=== PATIENT | female | born 1955 | race African-American/Black ===

== ENCOUNTER 2017-08-26 11:42 | Inpatient (IN) | payer MEDICARE, MEDICAID ==
[~2017-08-26] VITALS: Ht 180.3 cm; Wt 73.5 kg
[2017-08-26] MEDS ORDERED: BUPROPION XL300 M1 PO (14:33)
[2017-08-26 15:19] VITALS: BP 133/73
[2017-08-26] MEDS ORDERED: DiphenhydrAMINE 50mg/ml Inj IVP PRN (15:30)
[2017-08-26] MEDS ORDERED: ADVAIR 250-501 EACH PO (15:33)
--- NOTE | 2017-08-26 15:37 | Cardiology Report ---
APPROVED REPORT EXAM: Two-dimensional and M-mode echocardiogram with Doppler and color Doppler. INDICATION SOB M-Mode DIMENSIONS IVSd1.1 (0.7-1.1cm)Left Atrium (MM)3.7 (1.6-4.0cm) LVDd4.2 (3.5-5.6cm)Aortic Root2.6 (2.0-3.7cm) PWd1.1 (0.7-1.1cm)Aortic Cusp Exc.1.7 (1.5-2.0cm) LVDs1.8 (2.5-4.0cm) PWs1.4 cm Normal left ventricular chamber size, hyperdyamic systolic function with cavity obliteration, normal wall motion excpet for flatenning of vs suggestive of RV pressure overload Left ventricular ejection fraction estimated to be 70-75 %. Mod left ventricular hypertrophy. Small posterior pleural effusion. Left cardiac chamber sizes are within normal limits. Moderate right atrial enlargement by 2D. Mild right ventricular enlargement by 2D. Focal aortic valve sclerosis with adequate cusp excursion. Thickened mitral valve leaflets with normal excursion. Mild mitral annulus and aortic root calcification. Pulmonic valve is well visualized. Normal tricuspid valve structure. IVC dilated at 2.3cm non-collapsible with respiration indicate increased RA pressure. A color flow and spectral Doppler study was performed and revealed: Trace aortic regurgitation. Mild mitral regurgitation. Mitral diastolic velocities suggest reduced left ventricular relaxation c/w diastolic dysfunction grade 1. Mild tricuspid regurgitation. Tricuspid systolic velocities suggests peak right ventricular systolic pressure of at least 44-49 mmHg,( the velocity profile of TR jet was incomplete therfore the max / peak velocity may not have been measured) Consistent with pulmonary hypertension. Pulmonic regurgitation present.
[2017-08-26 15:45] LABS: HEMOGLOBIN 9.6 G/DL (12.0-16.0); MEAN CORPUSCULAR VOLUME 67 FL (80-99); PLATELET COUNT 522 K/UL (150-450); RED BLOOD COUNT 5.55 M/UL (4.20-5.40); RED CELL DISTRIBUTION WIDTH 20.7 % (11.6-14.8); WHITE BLOOD COUNT 4.9 K/UL (4.8-10.8)
[2017-08-26 15:53] LABS: ANION GAP 2 mmol/L (5-15); BLOOD UREA NITROGEN 11 mg/dL (7-18); CALCIUM 8.7 MG/DL (8.5-10.1); CARBON DIOXIDE 39 MMOL/L (21-32); CHLORIDE 106 MMOL/L (98-107); CREATININE 0.5 MG/DL (0.55-1.30); POTASSIUM 3.7 MMOL/L (3.5-5.1); SODIUM 147 MMOL/L (136-145)
--- NOTE | 2017-08-26 17:28 | Consultation ---
History of Present Illness General Date patient seen: Aug 26, 2017 Time patient seen: 17:48 Chief Complaint: FTT, LE edema, alcohol Present Illness HPI Patient sent from clinic, shes 62 year old female with alcohol abuse, Right heart failure, anemia, , bipolar. She is not compliant witg medications, she has been drinking more lately, does not follow up with doctors. Her echo has normal LV function, mild PAH. She has acute hypoxemia and dyspnea, COPD, sleep apnea, diastolic dysfunction and elevated filling pressures. She was admitted for failure to thrive. Allergies: Coded Allergies: CODEINE (Verified Allergy, Intermediate, Itchy, 08/26/17) Medication History Scheduled Bupropion HCl (Bupropion Xl), 300 MG PO DAILY, (Reported) Fluticasone/Salmeterol (Advair 250-50 Diskus), 1 PUFF PO BID, (Reported) Patient History Healthcare decision maker N Resuscitation status Full Code Advanced Directive on File Review of Systems Constitutional: Reports: weakness ENT: Reports: no symptoms Respiratory: Reports: cough, orthopnea, shortness of breath, stridor, wheezing , HORTA Cardiovascular: Reports: edema, palpitations Gastrointestinal: Reports: nausea Genitourinary: Reports: no symptoms Musculoskeletal: Reports: no symptoms Skin: Reports: no symptoms Psychiatric: Reports: anxiety Neurological: Reports: no symptoms Physical Exam General Appearance: no apparent distress Lines, tubes and drains: peripheral HEENT: normocephalic Neck: non-tender Respiratory/Chest: chest wall non-tender, expiratory wheezing Breasts: no masses Cardiovascular/Chest: normal peripheral pulses Abdomen: normal bowel sounds Extremities: normal range of motion 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 grossly normal Last 24 Hour Vital Signs Date Time Temp Pulse Resp B/P (MAP) Pulse Ox O2 Delivery O2 Flow Rate FiO2 08/26/17 15:19 98.1 99 18 133/73 98 Room Air 98.1 Laboratory Tests Test 08/26/17 15:00 08/26/17 15:45 White Blood Count 4.9 K/UL (4.8-10.8) Red Blood Count 5.55 M/UL (4.20-5.40) H Hemoglobin 9.6 G/DL (12.0-16.0) L Hematocrit 37.0 % (37.0-47.0) Mean Corpuscular Volume 67 FL (80-99) L Mean Corpuscular Hemoglobin 17.3 PG (27.0-31.0) L Mean Corpuscular Hemoglobin Concent 25.9 G/DL (32.0-36.0) L Red Cell Distribution Width 20.7 % (11.6-14.8) H Platelet Count 522 K/UL (150-450) H Mean Platelet Volume 5.1 FL (6.5-10.1) L Neutrophils (%) (Auto) % (45.0-75.0) Lymphocytes (%) (Auto) % (20.0-45.0) Monocytes (%) (Auto) % (1.0-10.0) Eosinophils (%) (Auto) % (0.0-3.0) Basophils (%) (Auto) % (0.0-2.0) Differential Total Cells Counted 100 Neutrophils % (Manual) 55 % (45-75) Lymphocytes % (Manual) 35 % (20-45) Monocytes % (Manual) 7 % (1-10) Eosinophils % (Manual) 0 % (0-3) Basophils % (Manual) 1 % (0-2) Band Neutrophils 2 % (0-8) Platelet Estimate Increased H Platelet Morphology Normal Hypochromasia 1+ Anisocytosis 1+ Sodium Level 147 MMOL/L (136-145) H Potassium Level 3.7 MMOL/L (3.5-5.1) Chloride Level 106 MMOL/L (98-107) Carbon Dioxide Level 39 MMOL/L (21-32) H Anion Gap 2 mmol/L (5-15) L Blood Urea Nitrogen 11 mg/dL (7-18) Creatinine 0.5 MG/DL (0.55-1.30) L Estimat Glomerular Filtration Rate > 60 mL/min (>60) Glucose Level 76 MG/DL (74-106) Hemoglobin A1c 6.5 % (4.3-6.0) H Calcium Level 8.7 MG/DL (8.5-10.1) Troponin I 0.010 ng/mL (0.000-0.056) Arterial Blood pH 7.382 (7.350-7.450) Arterial Blood Partial Pressure CO2 60.8 mmHg (35.0-45.0) *H Arterial Blood Partial Pressure O2 43.5 mmHg (75.0-100.0) Arterial Blood HCO3 35.3 mmol/L (22.0-26.0) H Arterial Blood Oxygen Saturation 73.8 % (92.0-98.0) L Arterial Blood Base Excess 8.7 Narciso Test Positive Height (Feet): 5 Height (Inches): 11.00 Weight (Pounds): 175 Medications Current Medications Medications (Trade) Dose Ordered Sig/Natividad Route PRN Reason Start Time Stop Time Status Last Admin Dose Admin Acetaminophen (Tylenol) 650 mg Q4H PRN ORAL Mild Pain/Temp > 100.5 08/26/17 15:30 09/25/17 15:29 Diphenhydramine HCl (Benadryl) 25 mg Q6H PRN IVP Itching 08/26/17 15:30 09/25/17 15:29 Furosemide (Lasix) 20 mg Q24H IV 08/27/17 18:00 09/26/17 17:59 Heparin Sodium (Porcine) (Heparin 5000 units/ml) 5,000 units EVERY 12 HOURS SUBQ 08/26/17 21:00 09/25/17 20:59 Ondansetron HCl (Zofran) 4 mg Q6H PRN IVP Nausea & Vomiting 08/26/17 15:30 09/25/17 15:29 Trazodone HCl (Desyrel) 300 mg BEDTIME ORAL 08/26/17 21:00 09/25/17 20:59 Assessment/Plan Assessment/Plan Hypoxemia/Dyspnea COPD Sleep Apnea Mixed pulmonary hypertension Diastolic dysfunction Bipolar disease Iron deficiency anemia Extensive alcohol and smoking use -Psych consult -pulmonary toilet -BiPAP prn -Steroids, inhaler, pulmonary toilet -No indication for RHC, PAH is multifactorial Group II/III -No indication for stress testing at this time -Echo reviewed, no significant changes to prior in June -Presentation not consistent with PE, prior work up negative -Mild IV hydration for RV function depression, avoid vasodilators/nitro if possible -Continue diuresis with metolazone and lasix Robbin Diop M.D. Aug 26, 2017 17:28
[2017-08-26 20:40] VITALS: BP 111/61
[2017-08-26] MEDS: TraZODone 100mg tab ORAL SCH (21:00)
[2017-08-26] MEDS: Heparin 5000 units/ml inj SUBQ SCH (21:35)
[2017-08-27] VITALS: BP 108/91
[2017-08-27 04:00] VITALS: BP 120/72
[2017-08-27 04:47] LABS: ANION GAP 0 mmol/L (5-15); BLOOD UREA NITROGEN 9 mg/dL (7-18); CALCIUM 8.4 MG/DL (8.5-10.1); CARBON DIOXIDE 39 MMOL/L (21-32); CHLORIDE 108 MMOL/L (98-107); CREATININE 0.6 MG/DL (0.55-1.30); POTASSIUM 3.6 MMOL/L (3.5-5.1); SODIUM 147 MMOL/L (136-145)
[2017-08-27 04:54] LABS: HEMATOCRIT 35.5 % (37.0-47.0); HEMOGLOBIN 9.1 G/DL (12.0-16.0); MEAN CORPUSCULAR VOLUME 67 FL (80-99); PLATELET COUNT 500 K/UL (150-450); WHITE BLOOD COUNT 5.1 K/UL (4.8-10.8)
[2017-08-27 05:12] LABS: CHOLESTEROL 116 MG/DL (< 200); HDL CHOLESTEROL 53 MG/DL (40-60); TRIGLYCERIDES 32 MG/DL (30-150)
[2017-08-27 08:00] VITALS: BP 94/47
--- NOTE | 2017-08-27 08:43 | Diagnostic Imaging Report ---
Indications: Altered mental status Technique: Spiral acquisitions obtained through the brain. Angled axial and coronal 5 x 5 mm slices were reconstructed. Total dose length product 1425.35 mGycm. CTDI vol(s) 70.38 mGy. Dose reduction achieved using automated exposure control Comparison: None. Findings: There is mild age-related enlargement of the ventricles and extra axial CSF spaces. Normal narayan-white differentiation. Intact calvarium. Visualized orbits and sinuses are unremarkable. Impression: Mild age-related volume loss Negative for acute intracranial bleed or mass effect This agrees with the preliminary interpretation provided overnight by [facility] teleradiology service. The CT scanner at [facility] is accredited by the [employer] and the scans are performed using protocols designed to limit radiation exposure to as low as reasonably achievable to attain images of sufficient resolution adequate for diagnostic evaluation.
[2017-08-27] MEDS: Heparin 5000 units/ml inj SUBQ SCH ×2 (09:09→21:39)
[2017-08-27 10:37] LABS: APPEARANCE,URINE SLIGHTLY CLOUDY; BILIRUBIN, URINE 1+ (NEGATIVE); COLOR,URINE BROWN; GLUCOSE, URINE (UA) NEGATIVE (NEGATIVE); KETONES,URINE NEGATIVE (NEGATIVE); LEUKOCYTE ESTERASE ,URINE NEGATIVE (NEGATIVE); NITRITE,URINE POSITIVE (NEGATIVE); PH,URINE 5 (4.5-8.0); PROTEIN,URINE 2+ (NEGATIVE); UROBILINOGEN,URINE 8 MG/DL (0.0-1.0)
[2017-08-27] MEDS ORDERED: Albuterol/Ipratropium 3ml neb HHN PRN (11:00)
--- NOTE | 2017-08-27 11:12 | Consultation ---
Consult Note Assessment/Plan [facility] DICT # [id number] Guevara Ayon MD Aug 27, 2017 11:12
[2017-08-27 12:00] VITALS: BP 111/63
[2017-08-27] MEDS: Cephalexin 500mg cap ORAL SCH ×3 (12:58→21:00)
[2017-08-27] MEDS: Albuterol/Ipratropium 3ml neb HHN SCH ×2 (13:44→18:51)
--- NOTE | 2017-08-27 15:15 | History and Physical ---
History of Present Illness General Date patient seen: Aug 27, 2017 Time patient seen: 15:14 Present Illness HPI Patient is a 62 y/o female with a PMH of alcohol abuse, right heart failure/ diastolic CHF, anemia, bipolar d/o, COPD, and OPAL that was sent from clinic for concern for decompensated heart failure with bilateral lower extremity edema. Patient has been drinking more lately and is non-compliant with her medications. Her ECHO showed normal LV function with mild PAH. Initial troponin was negative. CXR does show mild bilateral pleural effusions and picture c/w CHF. Patient at this time denies sob, chest pain, n/v, abdominal pain, d/c. She does admit to drinking 2-3 drinks within the last several days. Denies tobacco abuse or other illicit drug use. Allergies: Coded Allergies: CODEINE (Verified Allergy, Intermediate, Itchy, 08/26/17) Medication History Scheduled Bupropion HCl (Bupropion Xl), 300 MG PO DAILY, (Reported) Fluticasone/Salmeterol (Advair 250-50 Diskus), 1 PUFF PO BID, (Reported) Patient History Healthcare decision maker N Resuscitation status Full Code Advanced Directive on File Review of Systems All Other Systems: negative except mentioned in HPI Physical Exam General Appearance: no apparent distress, alert, thin HEENT: normocephalic, atraumatic Neck: non-tender, normal alignment, supple Respiratory/Chest: chest wall non-tender, lungs clear, normal breath sounds Cardiovascular/Chest: normal peripheral pulses, normal rate, regular rhythm Abdomen: normal bowel sounds, non tender, soft Extremities: moderate edema Skin Exam: normal pigmentation, warm/dry 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 II-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 grossly normal, no motor/sensory deficits, alert, oriented x 3 Last 24 Hour Vital Signs Date Time Temp Pulse Resp B/P (MAP) Pulse Ox O2 Delivery O2 Flow Rate FiO2 08/27/17 13:47 103 20 93 Nasal Cannula 3.0 32 08/27/17 13:38 101 20 94 Nasal Cannula 3.0 32 08/27/17 13:34 106 24 Nasal Cannula 3.0 32 08/27/17 12:00 106 08/27/17 12:00 98.3 106 22 111/63 95 Nasal Cannula 2.0 98.3 08/27/17 08:00 98.2 101 22 94/47 92 Nasal Cannula 2.0 98.2 08/27/17 08:00 105 08/27/17 07:59 92 Nasal Cannula 2.0 28 08/27/17 07:59 Nasal Cannula 2.0 28 08/27/17 05:14 90 16 94 32 08/27/17 04:00 97.5 96 18 120/72 97 Nasal Cannula 3.0 97.5 08/27/17 04:00 96 08/27/17 01:30 96 20 95 Facial 40 08/27/17 00:00 94 08/27/17 00:00 98.6 104 17 108/91 97 Bi-pap 40 98.6 08/27/17 00:00 40 08/26/17 23:30 98 19 93 Facial 40 08/26/17 20:54 111 21 95 Facial 40 08/26/17 20:40 40 08/26/17 20:40 97.4 105 16 111/61 93 Bi-pap 40 97.4 08/26/17 20:00 106 08/26/17 19:36 Nasal Cannula 2.0 28 08/26/17 19:35 98 Nasal Cannula 2.0 28 08/26/17 19:33 111 21 Bi-pap 40 08/26/17 16:00 107 08/26/17 15:19 98.1 99 18 133/73 98 Room Air 98.1 Intake and Output 08/26/17 08/27/17 19:00 07:00 Intake Total 120 ml 50 ml Output Total 0 ml Balance 120 ml 50 ml Intake Oral 120 ml 50 ml Output Urine Total 0 ml Laboratory Tests Test 08/26/17 15:45 08/27/17 04:05 08/27/17 09:00 Arterial Blood pH 7.382 (7.350-7.450) Arterial Blood Partial Pressure CO2 60.8 mmHg (35.0-45.0) *H Arterial Blood Partial Pressure O2 43.5 mmHg (75.0-100.0) Arterial Blood HCO3 35.3 mmol/L (22.0-26.0) H Arterial Blood Oxygen Saturation 73.8 % (92.0-98.0) L Arterial Blood Base Excess 8.7 Narciso Test Positive White Blood Count 5.1 K/UL (4.8-10.8) Red Blood Count 5.30 M/UL (4.20-5.40) Hemoglobin 9.1 G/DL (12.0-16.0) L Hematocrit 35.5 % (37.0-47.0) L Mean Corpuscular Volume 67 FL (80-99) L Mean Corpuscular Hemoglobin 17.2 PG (27.0-31.0) L Mean Corpuscular Hemoglobin Concent 25.7 G/DL (32.0-36.0) L Red Cell Distribution Width 21.0 % (11.6-14.8) H Platelet Count 500 K/UL (150-450) H Mean Platelet Volume 5.4 FL (6.5-10.1) L Neutrophils (%) (Auto) % (45.0-75.0) Lymphocytes (%) (Auto) % (20.0-45.0) Monocytes (%) (Auto) % (1.0-10.0) Eosinophils (%) (Auto) % (0.0-3.0) Basophils (%) (Auto) % (0.0-2.0) Differential Total Cells Counted 100 Neutrophils % (Manual) 58 % (45-75) Lymphocytes % (Manual) 23 % (20-45) Monocytes % (Manual) 19 % (1-10) H Eosinophils % (Manual) 0 % (0-3) Basophils % (Manual) 0 % (0-2) Band Neutrophils 0 % (0-8) Nucleated Red Blood Cells 1 /100 WBC Platelet Estimate Adequate Platelet Morphology Normal Hypochromasia 2+ Anisocytosis 3+ Microcytosis 4+ Sodium Level 147 MMOL/L (136-145) H Potassium Level 3.6 MMOL/L (3.5-5.1) Chloride Level 108 MMOL/L (98-107) H Carbon Dioxide Level 39 MMOL/L (21-32) H Anion Gap 0 mmol/L (5-15) L Blood Urea Nitrogen 9 mg/dL (7-18) Creatinine 0.6 MG/DL (0.55-1.30) Estimat Glomerular Filtration Rate > 60 mL/min (>60) Glucose Level 108 MG/DL (74-106) H Calcium Level 8.4 MG/DL (8.5-10.1) L Triglycerides Level 32 MG/DL (30-150) Cholesterol Level 116 MG/DL (< 200) LDL Cholesterol 66 mg/dL (<100) HDL Cholesterol 53 MG/DL (40-60) Cholesterol/HDL Ratio 2.2 (3.3-4.4) L Thyroid Stimulating Hormone (TSH) 1.187 uiU/mL (0.358-3.740) Urine Color Brown Urine Appearance Slightly cloudy Urine pH 5 (4.5-8.0) Urine Specific [place] 1.025 (1.005-1.035) Urine Protein 2+ (NEGATIVE) H Urine Glucose (UA) Negative (NEGATIVE) Urine Ketones Negative (NEGATIVE) Urine Occult Blood Negative (NEGATIVE) Urine Nitrite Positive (NEGATIVE) H Urine Bilirubin 1+ (NEGATIVE) H Urine Ictotest Negative Urine Urobilinogen 8 MG/DL (0.0-1.0) H Urine Leukocyte Esterase Negative (NEGATIVE) Urine RBC 2-4 /HPF (0 - 2) H Urine WBC 0-2 /HPF (0 - 2) Urine Squamous Epithelial Cells Few /LPF (NONE/OCC) Urine Bacteria Many /HPF (NONE) H Urine Opiates Screen Negative (NEGATIVE) Urine Barbiturates Screen Negative (NEGATIVE) Phencyclidine (PCP) Screen Negative (NEGATIVE) Urine Amphetamines Screen Negative (NEGATIVE) Urine Benzodiazepines Screen Negative (NEGATIVE) Urine Cocaine Screen Negative (NEGATIVE) Urine Marijuana (THC) Screen Negative (NEGATIVE) Height (Feet): 5 Height (Inches): 11.00 Weight (Pounds): 167 Medications Current Medications Medications (Trade) Dose Ordered Sig/Natividad Route PRN Reason Start Time Stop Time Status Last Admin Dose Admin Acetaminophen (Tylenol) 650 mg Q4H PRN ORAL Mild Pain/Temp > 100.5 08/26/17 15:30 09/25/17 15:29 Albuterol/ Ipratropium (Albuterol/ Ipratropium) 3 ml Q4H PRN HHN Shortness of Breath 08/27/17 11:00 09/01/17 10:59 Albuterol/ Ipratropium (Albuterol/ Ipratropium) 3 ml Q6HRT HHN 08/27/17 13:00 09/01/17 12:59 08/27/17 13:44 Cephalexin (Keflex) 500 mg FOUR TIMES A DAY ORAL 08/27/17 13:00 09/03/17 12:59 08/27/17 12:58 Diphenhydramine HCl (Benadryl) 25 mg Q6H PRN IVP Itching 08/26/17 15:30 09/25/17 15:29 Folic Acid (Folate) 1 mg DAILY ORAL 08/28/17 09:00 09/27/17 08:59 Heparin Sodium (Porcine) (Heparin 5000 units/ml) 5,000 units EVERY 12 HOURS SUBQ 08/26/17 21:00 09/25/17 20:59 08/27/17 09:09 Multivitamins (Multivitamins) 1 tab DAILY ORAL 08/28/17 09:00 09/27/17 08:59 Ondansetron HCl (Zofran) 4 mg Q6H PRN IVP Nausea & Vomiting 08/26/17 15:30 09/25/17 15:29 Salmeterol Xinafoate/ Fluticasone (Advair 250/50 Diskus) 1 puffs BID INH 08/27/17 18:00 09/26/17 17:59 Thiamine HCl (Vitamin B1) 100 mg DAILY ORAL 08/28/17 09:00 09/27/17 08:59 Tiotropium [place] (Spiriva Inhaler) 1 puff DAILY INH 08/28/17 09:00 09/27/17 08:59 Trazodone HCl (Desyrel) 300 mg BEDTIME ORAL 08/26/17 21:00 09/25/17 20:59 Assessment/Plan Problem List: (1) Acute on chronic diastolic CHF (congestive heart failure) ICD Codes: I50.33 - Acute on chronic diastolic (congestive) heart failure SNOMED: 76244604, 875529120 (2) COPD (chronic obstructive pulmonary disease) ICD Codes: J44.9 - Chronic obstructive pulmonary disease, unspecified SNOMED: 62496166 (3) H/O tobacco use, presenting hazards to health ICD Codes: Z87.891 - Personal history of nicotine dependence SNOMED: 5421345415710 (4) Anemia ICD Codes: D64.9 - Anemia, unspecified SNOMED: 122525090 (5) Alcohol abuse ICD Codes: F10.10 - Alcohol abuse, uncomplicated SNOMED: 07239886 (6) Noncompliance ICD Codes: Z91.19 - Patient's noncompliance with other medical treatment and regimen SNOMED: 5815834 (7) Bipolar disorder ICD Codes: F31.9 - Bipolar disorder, unspecified SNOMED: 30269308 (8) Acute respiratory failure with hypoxia ICD Codes: J96.01 - Acute respiratory failure with hypoxia SNOMED: 77192048, 066213418 (9) Failure to thrive SNOMED: 55883501 (10) Altered mental state ICD Codes: R41.82 - Altered mental status, unspecified SNOMED: 016987284 (11) FTT (failure to thrive) in adult ICD Codes: R62.7 - Adult failure to thrive SNOMED: 846956582 Status: stable, progressing Assessment/Plan - Admit to inpatient - Cardiology, nephrology, neurology, pulmonology, psychiatry consulted - CT head negative for acute pathology. Check RPR, vitamin B12, folate, TSH, UA to r/o metabolic etiology for AMS. Now improved. - ECHO with 60% EF with diastolic dysfunction noted and mild PAH - CXR with small bilateral pleural effusion - EKG/trend trop - BNP 722 - lasix 20mg IV qd - monitor I&O - no indication for RHC at this time - UA with positive nitrites. F/u urine cx. Continue keflex for now - pulmonary toilet. titrate FiO2 down for O2 sats to be greater than 90% - duonebs ATC and prn - Advair and spiriva - multivitamin, folate, thiamine daily - check prealbumin/albumin - nutrition consult - encourage compliance and alcohol cessation DVT Prophylaxis: SCD, HSQ Code Status: Full Hospital Classification Declaration: Based on this initial evaluation, and depending on the patient's clinical course, I anticipate that this patient will require hospitalization for 2-3 days for acute on chronic CHF exacerbation and close respiratory/hemodynamic monitoring. Disposition: Once the patient is stable to leave the hospital, I anticipate the patient will likely be discharged to the following environment: home with HH vs SNF I spent 72 minutes on this patient's case, and 40 minutes were dedicated to counseling and/or care coordination. Discussed with patient/family, nursing staff, SW/CM, pulmonology, cardiology, neurology regarding clinical status, treatment course, and disposition planning. Time of note may not reflect time of encounter. Mary Hong NP Aug 27, 2017 15:15
[2017-08-27] MEDS ORDERED: LORazepam 1mg tab ORAL PRN (16:00)
--- NOTE | 2017-08-27 16:50 | Diagnostic Imaging Report ---
Indication: Shortness of breath Technique: One view of the chest Comparison: none Findings: There are bilateral pleural effusions. There is bilateral basilar atelectasis. The heart is mildly enlarged. There is mild interstitial congestion. Impression: Evidence of mild congestive heart failure, with interstitial congestion and small bilateral pleural effusions Borderline cardiomegaly Bilateral basilar atelectatic changes
--- NOTE | 2017-08-27 17:21 | Cardiology Progress Note ---
Assessment/Plan Status: stable Assessment/Plan Hypoxemia/Dyspnea COPD Sleep Apnea Mixed pulmonary hypertension Diastolic dysfunction Bipolar disease Iron deficiency anemia Extensive alcohol and smoking use -Psych consulted -pulmonary toilet -BiPAP prn -Steroids, inhaler, pulmonary toilet -No indication for RHC, PAH is multifactorial Group II/III -No indication for stress testing at this time -Echo reviewed, no significant changes to prior in June -Presentation not consistent with PE, prior work up negative -Mild IV hydration for RV function depression, avoid vasodilators/nitro if possible, no indication for dobutamine - BP stable -Continue diuresis with metolazone and lasix -thoracentesis evaluation for right sided effusion Subjective Cardiovascular: Reports: no symptoms Respiratory: Reports: no symptoms Gastrointestinal/Abdominal: Reports: no symptoms Genitourinary: Reports: no symptoms Subjective No acute events, mild tachycardia, vitals otherwise stable. on 2-3 liters oxygen , CXR with right effusion. Objective Last 24 Hour Vital Signs Date Time Temp Pulse Resp B/P (MAP) Pulse Ox O2 Delivery O2 Flow Rate FiO2 08/27/17 13:47 103 20 93 Nasal Cannula 3.0 32 08/27/17 13:38 101 20 94 Nasal Cannula 3.0 32 08/27/17 13:34 106 24 Nasal Cannula 3.0 32 08/27/17 12:00 106 08/27/17 12:00 98.3 106 22 111/63 95 Nasal Cannula 2.0 98.3 08/27/17 08:00 98.2 101 22 94/47 92 Nasal Cannula 2.0 98.2 08/27/17 08:00 105 08/27/17 07:59 92 Nasal Cannula 2.0 28 08/27/17 07:59 Nasal Cannula 2.0 28 08/27/17 05:14 90 16 94 32 08/27/17 04:00 97.5 96 18 120/72 97 Nasal Cannula 3.0 97.5 08/27/17 04:00 96 08/27/17 01:30 96 20 95 Facial 40 08/27/17 00:00 94 08/27/17 00:00 98.6 104 17 108/91 97 Bi-pap 40 98.6 08/27/17 00:00 40 08/26/17 23:30 98 19 93 Facial 40 08/26/17 20:54 111 21 95 Facial 40 08/26/17 20:40 40 08/26/17 20:40 97.4 105 16 111/61 93 Bi-pap 40 97.4 08/26/17 20:00 106 08/26/17 19:36 Nasal Cannula 2.0 28 08/26/17 19:35 98 Nasal Cannula 2.0 28 08/26/17 19:33 111 21 Bi-pap 40 General Appearance: no apparent distress EENT: PERRL/EOMI Neck: non-tender Rhythm: ST Cardiovascular: normal peripheral pulses Respiratory/Chest: decreased breath sounds, rhonchi - right Abdomen: normal bowel sounds Extremities: normal range of motion 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 grossly normal Intake and Output 08/26/17 08/27/17 19:00 07:00 Intake Total 120 ml 50 ml Output Total 0 ml Balance 120 ml 50 ml Intake Oral 120 ml 50 ml Output Urine Total 0 ml Laboratory Tests Test 08/27/17 04:05 08/27/17 09:00 White Blood Count 5.1 K/UL (4.8-10.8) Red Blood Count 5.30 M/UL (4.20-5.40) Hemoglobin 9.1 G/DL (12.0-16.0) L Hematocrit 35.5 % (37.0-47.0) L Mean Corpuscular Volume 67 FL (80-99) L Mean Corpuscular Hemoglobin 17.2 PG (27.0-31.0) L Mean Corpuscular Hemoglobin Concent 25.7 G/DL (32.0-36.0) L Red Cell Distribution Width 21.0 % (11.6-14.8) H Platelet Count 500 K/UL (150-450) H Mean Platelet Volume 5.4 FL (6.5-10.1) L Neutrophils (%) (Auto) % (45.0-75.0) Lymphocytes (%) (Auto) % (20.0-45.0) Monocytes (%) (Auto) % (1.0-10.0) Eosinophils (%) (Auto) % (0.0-3.0) Basophils (%) (Auto) % (0.0-2.0) Differential Total Cells Counted 100 Neutrophils % (Manual) 58 % (45-75) Lymphocytes % (Manual) 23 % (20-45) Monocytes % (Manual) 19 % (1-10) H Eosinophils % (Manual) 0 % (0-3) Basophils % (Manual) 0 % (0-2) Band Neutrophils 0 % (0-8) Nucleated Red Blood Cells 1 /100 WBC Platelet Estimate Adequate Platelet Morphology Normal Hypochromasia 2+ Anisocytosis 3+ Microcytosis 4+ Sodium Level 147 MMOL/L (136-145) H Potassium Level 3.6 MMOL/L (3.5-5.1) Chloride Level 108 MMOL/L (98-107) H Carbon Dioxide Level 39 MMOL/L (21-32) H Anion Gap 0 mmol/L (5-15) L Blood Urea Nitrogen 9 mg/dL (7-18) Creatinine 0.6 MG/DL (0.55-1.30) Estimat Glomerular Filtration Rate > 60 mL/min (>60) Glucose Level 108 MG/DL (74-106) H Calcium Level 8.4 MG/DL (8.5-10.1) L Triglycerides Level 32 MG/DL (30-150) Cholesterol Level 116 MG/DL (< 200) LDL Cholesterol 66 mg/dL (<100) HDL Cholesterol 53 MG/DL (40-60) Cholesterol/HDL Ratio 2.2 (3.3-4.4) L Thyroid Stimulating Hormone (TSH) 1.187 uiU/mL (0.358-3.740) Urine Color Brown Urine Appearance Slightly cloudy Urine pH 5 (4.5-8.0) Urine Specific [place] 1.025 (1.005-1.035) Urine Protein 2+ (NEGATIVE) H Urine Glucose (UA) Negative (NEGATIVE) Urine Ketones Negative (NEGATIVE) Urine Occult Blood Negative (NEGATIVE) Urine Nitrite Positive (NEGATIVE) H Urine Bilirubin 1+ (NEGATIVE) H Urine Ictotest Negative Urine Urobilinogen 8 MG/DL (0.0-1.0) H Urine Leukocyte Esterase Negative (NEGATIVE) Urine RBC 2-4 /HPF (0 - 2) H Urine WBC 0-2 /HPF (0 - 2) Urine Squamous Epithelial Cells Few /LPF (NONE/OCC) Urine Bacteria Many /HPF (NONE) H Urine Opiates Screen Negative (NEGATIVE) Urine Barbiturates Screen Negative (NEGATIVE) Phencyclidine (PCP) Screen Negative (NEGATIVE) Urine Amphetamines Screen Negative (NEGATIVE) Urine Benzodiazepines Screen Negative (NEGATIVE) Urine Cocaine Screen Negative (NEGATIVE) Urine Marijuana (THC) Screen Negative (NEGATIVE) Robbin Diop M.D. Aug 27, 2017 17:21
--- NOTE | 2017-08-27 17:25 | Consultation ---
Consult Note Consult Note asked to eval for edema Assessment/Plan Low MCV Anemia Failure to Thrive h/o ETOH abuse Pulmonary HTN Mild Hypernatremia HypoAlbuminemia Proteinuria Tachycardia h/o Smoking Anemia spaulding 24 h urine protein gastric support further comments after above results COURTNEY BARBOZA Aug 27, 2017 17:25
[2017-08-27] MEDS: Advair 250/50 Inhaler - 14 dose INH SCH (18:00)
[2017-08-27 20:00] VITALS: BP 135/77
--- NOTE | 2017-08-27 20:21 | Consultation ---
Consult Note Consult Note NEUROLOGY CONSULTATION: Full note dictated #[id number] 62 y/o, BF of ?H who was admitted to the hospital on 08/26/17 for FTT. At this time she cannot be aroused. She was apparently given Ativan earlier for agitation and was brighter as per her nurse. ON EXAM: Unable to arouse even on DP. No definite lateralizing findings. IMPRESSION: Possible drug induced encephalopathy. Unable to get valuable neurologic data due to above. REC: W/U for AMS Careful with mind altering drugs. Will re-evaluate tomorrow. Samuel Tracy M.D., M.S.P.H. SAMUEL TRACY Aug 27, 2017 20:21
[2017-08-27] MEDS: TraZODone 100mg tab ORAL SCH (21:00)
[2017-08-27] MEDS ORDERED: Haloperidol 5mg/ml Inj IM PRN (21:45)
--- NOTE | 2017-08-27 21:45 | Consultation ---
DATE OF CONSULTATION: 08/27/2017 PULMONARY CONSULTATION CONSULTING PHYSICIAN: Guevara Ayon M.D. REFERRING PHYSICIAN: Pauline Saldana M.D. REASON FOR CONSULTATION: Hypoxemia. HISTORY OF PRESENT ILLNESS: The patient is a 62-year-old female. I am her outpatient primary care provider. Yesterday, I saw the patient in my office and referred her directly to [facility] for failure to thrive and concern for decompensated heart failure. She has a history of chronic hypercapnic respiratory failure, COPD, OPAL, not on therapy, mild pulmonary hypertension, extensive former tobacco use, CHF with diastolic dysfunction, bipolar disorder, anxiety disorder, depression, iron-deficiency anemia, and alcoholism. The patient presented for followup to my office yesterday. She had been drinking more, had increased lower extremity edema, shortness of breath, and decrease in energy. She was unsure of what medications she is taking. She sees Dr. Enriqueta Romo, psychiatrist, who treats her bipolar disorder. In my office, she was hypoxemic on room air and mildly edematous. I referred her for further evaluation and treatment. Since she came to the hospital, she has been afebrile. Her heart rate has been in the high 90s to low 100s, respiratory rate has been stable, and she has been saturating well on 2 to 3 liters of oxygen. Her labs, ABG was 7.38/60/43/35/73 and her laboratories are otherwise unremarkable. Her U-tox was negative. She does have positive nitrites and concern for a possible UTI. PAST MEDICAL HISTORY: 1. Alcoholism. 2. Bipolar disorder. 3. Iron-deficiency anemia. 4. Chronic respiratory failure. 5. COPD. 6. Tobacco use. PAST SURGICAL HISTORY: Removal of an ovarian cyst. PRIOR TO ADMISSION MEDICATIONS: Ventolin, BuSpar, Cymbalta, iron sulfate, Advair, Lamictal, multivitamin, trazodone, Bactrim, Incruse, and Wellbutrin. CURRENT MEDICATIONS: Reviewed. ALLERGIES: Codeine. SOCIAL HISTORY: Extensive tobacco and alcohol use. She lives in assisted living. Her sister is her caregiver, but does not live with her. FAMILY HISTORY: Noncontributory. REVIEW OF SYSTEMS: Negative other than history of present illness. PHYSICAL EXAMINATION: VITAL SIGNS: Temperature 97.5, pulse 101, blood pressure 94/47, respiratory rate 22, and saturating 92% on two liters. GENERAL: She is a frail, disheveled female, in no acute distress. HEENT: Normocephalic and atraumatic. Oropharynx is clear with moist mucous membranes. NECK: Supple without lymphadenopathy. JVP is 8 cm. CHEST: Clear. Bibasilar rales. HEART: Regular rate and rhythm. ABDOMEN: Soft, nontender, and nondistended. EXTREMITIES: No cyanosis or clubbing. There is 1+ edema. ANCILLARY DATA: Urine, 1+ nitrites. Blood gas, 7.382/60/43/35/73. White count 5.1, hemoglobin 9.1, and platelet count 500,000. Sodium 147, potassium 3.6, chloride 108, bicarb 39, gap 0, BUN 9, and creatinine 0.6. GFR greater than 60. Glucose 108. Hemoglobin A1c 6.5. TSH 1.87. Triglycerides 32, cholesterol 116, LDL 66, and HDL 53. Calcium is 8.4. Urine tox is negative. IMAGING: Head CT shows age-related volume loss. No acute findings. Echocardiogram shows normal LV size and function, cavity obliteration, ejection fraction of 70% to 75%, moderate LVH, small posterior pericardial effusion, moderate right atrial enlargement, thickened mitral valve leaflets, and mild mitral annulus root calcification. Pulmonic valve is not well visualized. IVC 2.3 cm and non-collapsable indicating increased RA pressure with the peak RV systolic pressure of 44 to 49 and mild TR. Data from [facility], 06/13/2016, CTA chest, negative for PE. Pulmonary hypertension noted. Small pleural effusions. Possible infiltrate at the right base. On 06/11/2017, TTE at [facility], hyperdynamic LVEF 74%, mild diastolic dysfunction, reversal of E/A deceleration consistent with impaired LV relaxation, mildly depressed RV systolic function, and LVOT 17. On 07/06/2017, TTE, normal LV systolic function. Ejection fraction 70%. LV diastolic parameters normal. Wall motion score 1. No regional wall motion abnormalities. Normal RV systolic function. PA pressure of 35. IVC normal size with less than 50% collapse. Spirometry in my office from 06/18/2017, FEV1/FVC ratio 87%, FEV1 2.02 or 76%, and FVC 2.33 or 69%. On 06/18/2017, home sleep study done in my office, AHI is 30. ASSESSMENT: 1. Alteration of mental status, likely multifactorial secondary to underlying bipolar disorder, alcoholism, and superimposed urinary tract infection. 2. Acute on chronic hypoxemic respiratory failure, likely secondary to underlying pulmonary hypertension, chronic obstructive pulmonary disease, and diastolic dysfunction. 3. No evidence of decompensated heart failure at this time. 4. Congestive heart failure with diastolic dysfunction. 5. Chronic obstructive pulmonary disease. 6. Chronic hypercapnic respiratory failure. 7. Severe sleep apnea with an AHI of 30. 8. Alcoholism. 9. Extensive former tobacco use. 10. Bipolar disorder. 11. Anxiety disorder. 12. Depression. 13. Iron-deficiency anemia. 14. Failure to thrive. TREATMENT PLAN: 1. BiPAP at bedtime and p.r.n. 2. Titrate down FiO2 to keep saturations greater than 90%. 3. Advair and Spiriva ( Advair and increase). 4. Ujddg-[id number]-pygxi and p.r.n. bronchodilators. 5. Monitor volume status: Volume management will be very tricky in this . She has hyperdynamic LV function with cavity obliteration consistent with intravascular volume depletion. However, she has elevated filling pressures secondary to her pulmonary hypertension. I suspect there is a component of preload dependent. For now, we will hold Lasix and attempt to keep her euvolemic. 6. We will check a ventilation/perfusion scan to evaluate for CTEPH. 7. Follow up duplexes. 8. Follow up chest x-ray. 9. Multivitamin, thiamine, and folate. 10. Monitor for signs of alcohol withdrawal. 11. P.r.n. Ativan. 12. Psychiatry consult is pending. 13. Aspiration precautions. 14. DVT prophylaxis. Heparin subcutaneous. 15. Disposition and planning. The patient will likely need to go to a SNF and then to an outpatient rehabilitation program. Thank you for allowing me to assist in the care of your patient. If I may be of any assistance in the future, please do not hesitate to ask. Guevara Ayon M.D. DR: HELLEN JOB#: [id number] CC:
--- NOTE | 2017-08-27 21:49 | Consultation ---
History of Present Illness General Date patient seen: Aug 27, 2017 Present Illness HPI 62 y/o female with a PMH of alcohol abuse, right heart failure/diastolic CHF, anemia, bipolar d/o, COPD, and OPAL. the pt was agitated earlier and was given a dose of ativan now lethargic. the pt is on multiple psych meds. Allergies: Coded Allergies: CODEINE (Verified Allergy, Intermediate, Itchy, 08/26/17) Medication History Scheduled Bupropion HCl (Bupropion Xl), 300 MG PO DAILY, (Reported) Fluticasone/Salmeterol (Advair 250-50 Diskus), 1 PUFF PO BID, (Reported) Patient History Limited by: medical condition History Provided By: Medical Record Healthcare decision maker N Resuscitation status Full Code Advanced Directive on File Past Medical/Surgical History Past Medical/Surgical History: (1) CHF (congestive heart failure) (2) FTT (failure to thrive) in adult Review of Systems Psychiatric: Reports: prior hx, emotional problems Physical Exam General Appearance: no apparent distress, lethargic Last 24 Hour Vital Signs Date Time Temp Pulse Resp B/P (MAP) Pulse Ox O2 Delivery O2 Flow Rate FiO2 08/27/17 20:56 108 21 96 Facial 40 08/27/17 20:14 104 33 94 Facial 40 08/27/17 20:00 97.9 104 19 135/77 95 Bi-pap 40 97.9 08/27/17 19:01 115 20 97 Nasal Cannula 3.0 32 08/27/17 18:51 93 Nasal Cannula 3.0 32 08/27/17 18:51 112 20 93 Nasal Cannula 3.0 32 08/27/17 18:51 Nasal Cannula 3.0 32 08/27/17 13:47 103 20 93 Nasal Cannula 3.0 32 08/27/17 13:38 101 20 94 Nasal Cannula 3.0 32 08/27/17 13:34 106 24 Nasal Cannula 3.0 32 08/27/17 12:00 106 08/27/17 12:00 98.3 106 22 111/63 95 Nasal Cannula 2.0 98.3 08/27/17 08:00 98.2 101 22 94/47 92 Nasal Cannula 2.0 98.2 08/27/17 08:00 105 08/27/17 07:59 92 Nasal Cannula 2.0 28 08/27/17 07:59 Nasal Cannula 2.0 28 08/27/17 05:14 90 16 94 32 08/27/17 04:00 97.5 96 18 120/72 97 Nasal Cannula 3.0 97.5 08/27/17 04:00 96 08/27/17 01:30 96 20 95 Facial 40 08/27/17 00:00 94 08/27/17 00:00 98.6 104 17 108/91 97 Bi-pap 40 98.6 08/27/17 00:00 40 08/26/17 23:30 98 19 93 Facial 40 Intake and Output 08/26/17 08/27/17 19:00 07:00 Intake Total 120 ml 50 ml Output Total 0 ml Balance 120 ml 50 ml Intake Oral 120 ml 50 ml Output Urine Total 0 ml Laboratory Tests Test 08/27/17 04:05 08/27/17 09:00 08/27/17 17:05 08/27/17 20:31 White Blood Count 5.1 K/UL (4.8-10.8) Red Blood Count 5.30 M/UL (4.20-5.40) Hemoglobin 9.1 G/DL (12.0-16.0) L Hematocrit 35.5 % (37.0-47.0) L Mean Corpuscular Volume 67 FL (80-99) L Mean Corpuscular Hemoglobin 17.2 PG (27.0-31.0) L Mean Corpuscular Hemoglobin Concent 25.7 G/DL (32.0-36.0) L Red Cell Distribution Width 21.0 % (11.6-14.8) H Platelet Count 500 K/UL (150-450) H Mean Platelet Volume 5.4 FL (6.5-10.1) L Neutrophils (%) (Auto) % (45.0-75.0) Lymphocytes (%) (Auto) % (20.0-45.0) Monocytes (%) (Auto) % (1.0-10.0) Eosinophils (%) (Auto) % (0.0-3.0) Basophils (%) (Auto) % (0.0-2.0) Differential Total Cells Counted 100 Neutrophils % (Manual) 58 % (45-75) Lymphocytes % (Manual) 23 % (20-45) Monocytes % (Manual) 19 % (1-10) H Eosinophils % (Manual) 0 % (0-3) Basophils % (Manual) 0 % (0-2) Band Neutrophils 0 % (0-8) Nucleated Red Blood Cells 1 /100 WBC Platelet Estimate Adequate Platelet Morphology Normal Hypochromasia 2+ Anisocytosis 3+ Microcytosis 4+ Erythrocyte Sedimentation Rate Pending Sodium Level 147 MMOL/L (136-145) H Potassium Level 3.6 MMOL/L (3.5-5.1) Chloride Level 108 MMOL/L (98-107) H Carbon Dioxide Level 39 MMOL/L (21-32) H Anion Gap 0 mmol/L (5-15) L Blood Urea Nitrogen 9 mg/dL (7-18) Creatinine 0.6 MG/DL (0.55-1.30) Estimat Glomerular Filtration Rate > 60 mL/min (>60) Glucose Level 108 MG/DL (74-106) H Calcium Level 8.4 MG/DL (8.5-10.1) L Triglycerides Level 32 MG/DL (30-150) Cholesterol Level 116 MG/DL (< 200) LDL Cholesterol 66 mg/dL (<100) HDL Cholesterol 53 MG/DL (40-60) Cholesterol/HDL Ratio 2.2 (3.3-4.4) L Thyroid Stimulating Hormone (TSH) 1.187 uiU/mL (0.358-3.740) Urine Color Brown Urine Appearance Slightly cloudy Urine pH 5 (4.5-8.0) Urine Specific [place] 1.025 (1.005-1.035) Urine Protein 2+ (NEGATIVE) H Urine Glucose (UA) Negative (NEGATIVE) Urine Ketones Negative (NEGATIVE) Urine Occult Blood Negative (NEGATIVE) Urine Nitrite Positive (NEGATIVE) H Urine Bilirubin 1+ (NEGATIVE) H Urine Ictotest Negative Urine Urobilinogen 8 MG/DL (0.0-1.0) H Urine Leukocyte Esterase Negative (NEGATIVE) Urine RBC 2-4 /HPF (0 - 2) H Urine WBC 0-2 /HPF (0 - 2) Urine Squamous Epithelial Cells Few /LPF (NONE/OCC) Urine Bacteria Many /HPF (NONE) H Urine Opiates Screen Negative (NEGATIVE) Urine Barbiturates Screen Negative (NEGATIVE) Phencyclidine (PCP) Screen Negative (NEGATIVE) Urine Amphetamines Screen Negative (NEGATIVE) Urine Benzodiazepines Screen Negative (NEGATIVE) Urine Cocaine Screen Negative (NEGATIVE) Urine Marijuana (THC) Screen Negative (NEGATIVE) Troponin I 0.009 ng/mL (0.000-0.056) C-Reactive Protein, Quantitative < 0.4 mg/dL (0.00-0.90) Pro-B-Type Natriuretic Peptide 672 pg/mL (0-125) H Vitamin D 25-Hydroxy Pending 25-Hydroxy Vitamin D2 Pending 25-Hydroxy Vitamin D3 Pending Rapid Plasma Reagin Pending Arterial Blood pH 7.247 (7.350-7.450) Arterial Blood Partial Pressure CO2 93.4 mmHg (35.0-45.0) *H Arterial Blood Partial Pressure O2 62.9 mmHg (75.0-100.0) L Arterial Blood HCO3 39.8 mmol/L (22.0-26.0) H Arterial Blood Oxygen Saturation 88.4 % (92.0-98.0) L Arterial Blood Base Excess 10.0 Narciso Test Positive Height (Feet): 5 Height (Inches): 11.00 Weight (Pounds): 167 Medications Current Medications Medications (Trade) Dose Ordered Sig/Natividad Route PRN Reason Start Time Stop Time Status Last Admin Dose Admin Acetaminophen (Tylenol) 650 mg Q4H PRN ORAL Mild Pain/Temp > 100.5 08/26/17 15:30 09/25/17 15:29 Albuterol/ Ipratropium (Albuterol/ Ipratropium) 3 ml Q4H PRN HHN Shortness of Breath 08/27/17 11:00 09/01/17 10:59 Albuterol/ Ipratropium (Albuterol/ Ipratropium) 3 ml Q6HRT HHN 08/27/17 13:00 09/01/17 12:59 08/27/17 18:51 Cephalexin (Keflex) 500 mg FOUR TIMES A DAY ORAL 08/27/17 13:00 09/03/17 12:59 08/27/17 12:58 Diphenhydramine HCl (Benadryl) 25 mg Q6H PRN IVP Itching 08/26/17 15:30 09/25/17 15:29 Folic Acid (Folate) 1 mg DAILY ORAL 08/28/17 09:00 09/27/17 08:59 Furosemide (Lasix) 20 mg DAILY IV 6/14/18 09:00 09/27/17 08:59 Heparin Sodium (Porcine) (Heparin 5000 units/ml) 5,000 units EVERY 12 HOURS SUBQ 08/26/17 21:00 09/25/17 20:59 08/27/17 21:39 Lansoprazole (Prevacid) 30 mg BID ORAL 08/27/17 18:00 09/26/17 17:59 Lorazepam (Ativan) 1 mg Q6H PRN ORAL For Anxiety 08/27/17 16:00 09/03/17 15:59 08/27/17 15:56 Multivitamins (Multivitamins) 1 tab DAILY ORAL 08/28/17 09:00 09/27/17 08:59 Ondansetron HCl (Zofran) 4 mg Q6H PRN IVP Nausea & Vomiting 08/26/17 15:30 09/25/17 15:29 Salmeterol Xinafoate/ Fluticasone (Advair 250/50 Diskus) 1 puffs BID INH 08/27/17 18:00 09/26/17 17:59 Thiamine HCl (Vitamin B1) 100 mg DAILY ORAL 08/28/17 09:00 09/27/17 08:59 Tiotropium [place] (Spiriva Inhaler) 1 puff DAILY INH 08/28/17 09:00 09/27/17 08:59 Trazodone HCl (Desyrel) 300 mg BEDTIME ORAL 08/26/17 21:00 09/25/17 20:59 Assessment/Plan Assessment/Plan encephalopathy bipolar agitation alcohol dc Ativan start Haldol prn dc Benadryl thiamin folate dc trazodone dc Abdullahi Casanova M.D. Aug 27, 2017 21:49
--- NOTE | 2017-08-27 23:14 | Consultation ---
DATE OF CONSULTATION: 08/26/2017 NEUROLOGY CONSULTATION CONSULTING PHYSICIAN: James Tracy M.D. REQUESTING PHYSICIAN: Guevara Ayon M.D. HISTORY: Ms. Latoya Reina is a 62-year-old, black lady, of unknown handedness, who does have past history of multiple medical problems including bipolar affective disorder, chronic obstructive pulmonary disease, obstructive sleep apnea, mixed pulmonary hypertension, diastolic dysfunction, iron-deficiency anemia, and alcohol and tobacco abuse. She was hospitalized on 08/26/2017, for failure to thrive and an altered mental state. Since she has been in the hospital, she apparently had a period of agitation and was given Ativan and since then, she has been unarousable. At this point in time, she cannot be aroused. Further history is impossible to obtain. PAST HISTORY: Significant for bipolar affective disorder, chronic obstructive pulmonary disease, obstructive sleep apnea, mixed pulmonary hypertension, diastolic dysfunction, iron-deficiency anemia, and alcohol and tobacco abuse. FAMILY HISTORY: Unavailable. PERSONAL HISTORY: Unavailable. PRESENT MEDICATIONS: Include Spiriva, multivitamins, thiamine, folic acid, Lasix, Advair, Prevacid, Ativan p.r.n., DuoNeb, Keflex, heparin for DVT prophylaxis, trazodone, Zofran, Tylenol, and Benadryl. PHYSICAL EXAMINATION: GENERAL: She is a well-developed, relatively well-nourished black lady, lying in bed, motionless. VITAL SIGNS: Pulse 115/minute, blood pressure 135/77 mmHg, respirations 19/minute, and temperature 97.9 degrees Fahrenheit. HEAD: Normocephalic and atraumatic. EENT: Examination benign. NECK: No neck rigidity was observed. NEUROLOGICAL EXAMINATION: MENTAL STATUS EXAMINATION: She could not be aroused even on applying deep painful stimuli and thus further mental status testing was impossible. SPEECH: Could not be tested. LANGUAGE: Could not be tested. CRANIAL NERVE EXAMINATION: II: She did not blink to threat. III, IV & : The external ocular movements were present on oculocephalic maneuvers. The pupils were 3 mm in diameter and reactive sluggishly to light. V & VII: The corneal reflexes were present but depressed, and not asymmetrical. VIII: She did not respond to sounds and had no nystagmus. IX & X: Could not be tested. XI: The sternocleidomastoids and trapezii did not function. XII: Could not be tested. MOTOR SYSTEM: The tone was normal in all four extremities. Examination of muscle mass revealed no focal wasting. Examination of power could not be tested because even on applying deep painful stimuli, no movements were seen. SENSORY EXAMINATION: She did not respond even to deep painful stimuli. REFLEXES: 0 at the biceps, triceps, brachioradialis, knees, and ankles. The plantar responses were mute bilaterally. COORDINATION, STANCE & GAIT: Could not be tested. DIAGNOSTIC IMPRESSION: 1. Ms. Latoya Reina is a 62-year-old, black lady, of unknown handedness, who does have past history of multiple medical problems including bipolar affective disorder, chronic obstructive pulmonary disease, obstructive sleep apnea, mixed pulmonary hypertension, diastolic dysfunction, iron deficiency anemia, alcohol abuse, and tobacco abuse, who was hospitalized for failure to thrive at home and an altered mental state. 2. Since she has been here, she has had a period of agitation for which she was given Ativan following which she has been unresponsive. 3. On neurological examination at this time, she cannot be aroused even on applying deep painful stimuli. She however does not demonstrate any focal or lateralizing neurological findings. 4. Laboratory data obtained thus far revealed an anemia with a hemoglobin of 9.1 G. The arterial blood gas performed on 08/26/2017, revealed that she was retaining carbon dioxide with pCO2 of 60.8 and was hypoxemic with a pO2 of 43 with pH of 7.38. The chemistry panel revealed that her sodium was elevated to 147, chloride elevated to 108, CO2 elevated to 39, glucose elevated to 108, her BNP was elevated to 672, and TSH was normal at 1.18. Her urinalysis revealed 2-4 RBCs and 0-2 WBCs per high-power field with negative leukocyte esterase. 5. The CT scan of the brain without contrast performed on 08/26/2017, revealed mild atrophy and some deep white matter changes, but no acute pathology. 6. The patient's history and neurological examination are most compatible with, at present, a significant drug-induced encephalopathy and possibly a metabolic encephalopathy related to respiratory problems. 7. Due to her sedated state, I am unable to get valuable neurological data at this point in time. RECOMMENDATIONS: 1. Agree with management thus far. 2. The patient will be worked up thoroughly for other treatable causes of altered mental state. Blood gas will be repeated immediately. In addition to that, a B12 level, folate level, vitamin D level, RPR, glycohemoglobin, Westergren sedimentation rate will be obtained. 3. All mind-altering drugs should be held. 4. I shall try to re-evaluate the patient tomorrow to obtain more information. Thank you for entrusting me with the care of Ms. Reina. I shall follow her with you. James Tracy M.D., M.S.P.H. DR: Sindhu JOB#: [id number] MTDD
[2017-08-28] VITALS: BP 118/69
[2017-08-28] MEDS: Albuterol/Ipratropium 3ml neb HHN SCH ×4 (01:31→18:45)
[2017-08-28 04:00] VITALS: BP 101/55
[2017-08-28 05:25] LABS: EOSINOPHILS % (AUTO) 0.4 % (0.0-3.0); HEMATOCRIT 33.4 % (37.0-47.0); HEMOGLOBIN 8.7 G/DL (12.0-16.0); MEAN CORPUSCULAR VOLUME 66 FL (80-99); MONOCYTES % (AUTO) 19.6 % (1.0-10.0); NEUTROPHILS % (AUTO) 56.1 % (45.0-75.0); PLATELET COUNT 387 K/UL (150-450); RED BLOOD COUNT 5.09 M/UL (4.20-5.40); RED CELL DISTRIBUTION WIDTH 20.5 % (11.6-14.8); WHITE BLOOD COUNT 6.4 K/UL (4.8-10.8)
[2017-08-28 05:30] LABS: INR 1.1 (0.9-1.1)
[2017-08-28 05:48] LABS: ALANINE AMINOTRANSFERASE 27 U/L (12-78); ALBUMIN 2.3 G/DL (3.4-5.0); ALBUMIN/GLOBULIN RATIO 0.7 (1.0-2.7); ALKALINE PHOSPHATASE 56 U/L (46-116); ANION GAP 1 mmol/L (5-15); ASPARTATE AMINO TRANSFERASE 22 U/L (15-37); BILIRUBIN,TOTAL 0.5 MG/DL (0.2-1.0); BLOOD UREA NITROGEN 11 mg/dL (7-18); CALCIUM 8.6 MG/DL (8.5-10.1); CARBON DIOXIDE 37 MMOL/L (21-32); CHLORIDE 107 MMOL/L (98-107); CREATINE KINASE 66 U/L (26-308); CREATININE 0.6 MG/DL (0.55-1.30); FERRITIN 9 NG/ML (8-388); GAMMA GLUTAMYL TRANSPEPTIDASE 14 U/L (5-85); POTASSIUM 3.7 MMOL/L (3.5-5.1); SODIUM 145 MMOL/L (136-145)
[2017-08-28 06:05] LABS: % IRON SATURATION 5 % (15-50); IRON 17 ug/dL (50-175); TOTAL IRON BINDING CAPACITY 353 ug/dL (250-450)
[2017-08-28 08:15] VITALS: BP 112/67
[2017-08-28] MEDS: Advair 250/50 Inhaler - 14 dose INH SCH ×2 (08:42→18:45)
[2017-08-28] MEDS ORDERED: Potassium Phosphate 20 MM in NS 275 ML IV SCH (10:00)
[2017-08-28] MEDS: Cephalexin 500mg cap ORAL SCH ×3 (10:05→18:52)
[2017-08-28] MEDS: Thiamine 100mg tab ORAL SCH (10:05)
[2017-08-28] MEDS: Heparin 5000 units/ml inj SUBQ SCH ×2 (10:06→21:03)
--- NOTE | 2017-08-28 11:32 | General Progress Note ---
Assessment/Plan Status: stable, progressing Assessment/Plan encephalopathy bipolar agitation alcohol Haldol prn thiamin folate Subjective Date patient seen: Aug 28, 2017 Neurologic/Psychiatric: Reports: anxiety, depressed Allergies: Coded Allergies: CODEINE (Verified Allergy, Intermediate, Itchy, 08/26/17) Subjective the pt is doing better calmer.the pt is still somewhat confused and anxious tachycardic Objective Last 24 Hour Vital Signs Date Time Temp Pulse Resp B/P (MAP) Pulse Ox O2 Delivery O2 Flow Rate FiO2 08/28/17 08:48 105 08/28/17 08:15 97.7 99 24 112/67 100 Nasal Cannula 3.0 97.7 08/28/17 07:34 106 26 100 Nasal Cannula 3.0 32 08/28/17 07:25 101 18 98 Nasal Cannula 3.0 32 08/28/17 07:25 Nasal Cannula 3.0 32 08/28/17 07:24 98 Nasal Cannula 3.0 32 08/28/17 04:59 94 16 98 Facial 40 08/28/17 04:00 98.0 99 16 101/55 100 Bi-pap 40 98.0 08/28/17 04:00 40 08/28/17 03:03 96 16 96 Facial 40 08/28/17 01:40 93 26 99 Bi-pap 40 08/28/17 01:30 93 18 97 Bi-pap 40 08/28/17 01:30 93 18 97 Facial 40 08/28/17 00:00 97.9 93 14 118/69 98 Bi-pap 40 97.9 08/28/17 00:00 94 08/28/17 00:00 40 08/27/17 23:19 95 18 100 Facial 40 08/27/17 20:56 108 21 96 Facial 40 08/27/17 20:14 104 33 94 Facial 40 08/27/17 20:00 97.9 104 19 135/77 95 Bi-pap 40 97.9 08/27/17 20:00 40 08/27/17 19:01 115 20 97 Nasal Cannula 3.0 32 08/27/17 18:51 93 Nasal Cannula 3.0 32 08/27/17 18:51 112 20 93 Nasal Cannula 3.0 32 08/27/17 18:51 Nasal Cannula 3.0 32 08/27/17 13:47 103 20 93 Nasal Cannula 3.0 32 08/27/17 13:38 101 20 94 Nasal Cannula 3.0 32 08/27/17 13:34 106 24 Nasal Cannula 3.0 32 08/27/17 12:00 106 08/27/17 12:00 98.3 106 22 111/63 95 Nasal Cannula 2.0 98.3 Intake and Output 08/27/17 08/28/17 19:00 07:00 Intake Total 260 ml 200 ml Balance 260 ml 200 ml Intake Oral 260 ml 200 ml # Voids 3 1 Laboratory Tests 08/27/17 17:05: Troponin I 0.009, C-Reactive Protein, Quantitative < 0.4, Pro-B-Type Natriuretic Peptide 672H, Vitamin D 25-Hydroxy [Pending], 25-Hydroxy Vitamin D2 [Pending], 25-Hydroxy Vitamin D3 [Pending], Rapid Plasma Reagin [Pending] 08/27/17 20:31: Arterial Blood pH 7.247*L, Arterial Blood Partial Pressure CO2 93.4*H, Arterial Blood Partial Pressure O2 62.9L, Arterial Blood HCO3 39.8H, Arterial Blood Oxygen Saturation 88.4L, Arterial Blood Base Excess 10.0, Narciso Test Positive 08/27/17 23:09: Arterial Blood pH 7.351, Arterial Blood Partial Pressure CO2 78.4*H, Arterial Blood Partial Pressure O2 98.1, Arterial Blood HCO3 42.4H, Arterial Blood Oxygen Saturation 96.8, Arterial Blood Base Excess 14.4, Narciso Test Positive 08/27/17 23:20: Troponin I 0.019 08/28/17 03:30: White Blood Count 6.4, Red Blood Count 5.09, Hemoglobin 8.7L, Hematocrit 33.4L, Mean Corpuscular Volume 66L, Mean Corpuscular Hemoglobin 17.1L, Mean Corpuscular Hemoglobin Concent 26.0L, Red Cell Distribution Width 20.5H, Platelet Count 387, Mean Platelet Volume 4.9L, Neutrophils (%) (Auto) 56.1, Lymphocytes (%) (Auto) 23.0, Monocytes (%) (Auto) 19.6H, Eosinophils (%) (Auto) 0.4, Basophils (%) (Auto) 1.0, Prothrombin Time 11.6H, Prothromb Time International Ratio 1.1, Activated Partial Thromboplast Time 23, Sodium Level 145, Potassium Level 3.7, Chloride Level 107, Carbon Dioxide Level 37H, Anion Gap 1L, Blood Urea Nitrogen 11, Creatinine 0.6, Estimat Glomerular Filtration Rate > 60, Glucose Level 85, Hemoglobin A1c 6.7H, Uric Acid 5.4, Calcium Level 8.6, Phosphorus Level 2.0L, Magnesium Level 1.6L, Iron Level 17L, Total Iron Binding Capacity 353, Percent Iron Saturation 5L, Unsaturated Iron Binding 336, Ferritin 9, Total Bilirubin 0.5, Gamma Glutamyl Transpeptidase 14, Aspartate Amino Transf (AST/SGOT) 22, Alanine Aminotransferase (ALT/SGPT) 27, Alkaline Phosphatase 56, Total Creatine Kinase 66, Troponin I 0.009, Pro-B-Type Natriuretic Peptide 722H, Total Protein 5.8L, Albumin 2.3L, Globulin 3.5, Albumin/Globulin Ratio 0.7L, Prealbumin [Pending], Vitamin B12 Level 300, Folate 11.5 08/28/17 07:15: Arterial Blood pH 7.337L, Arterial Blood Partial Pressure CO2 69.0*H, Arterial Blood Partial Pressure O2 91.8, Arterial Blood HCO3 36.1H, Arterial Blood Oxygen Saturation 96.2, Arterial Blood Base Excess 8.6, Narciso Test Positive 08/28/17 10:55: Troponin I [Pending] Height (Feet): 5 Height (Inches): 11.00 Weight (Pounds): 166 General Appearance: no apparent distress, alert Neurologic: oriented x 3, responsive, depressed affect Abdullahi Zuñiga M.D. Aug 28, 2017 11:32
[2017-08-28 12:12] VITALS: BP 126/78
--- NOTE | 2017-08-28 13:41 | Cardiology Progress Note ---
Assessment/Plan Status: stable, not improved, unchanged Assessment/Plan Hypoxemia/Dyspnea COPD Sleep Apnea Mixed pulmonary hypertension Diastolic dysfunction Bipolar disease Iron deficiency anemia Extensive alcohol and smoking use -Continue pulmonary toilet -BiPAP prn -No indication for RHC, PAH is multifactorial Group II/III -No indication for stress testing at this time -Echo reviewed, no significant changes to prior in June -Presentation not consistent with PE, prior work up negative -Mild IV hydration for RV function depression and hyperdyanmic systolic function but caution due to elevated filling pressures and pulmonary congestion , avoid vasodilators/nitro if possible, no indication for dobutamine - BP stable -Spot dose lasix -thoracentesis evaluation for right sided effusion Subjective Cardiovascular: Reports: no symptoms Respiratory: Reports: no symptoms Gastrointestinal/Abdominal: Reports: no symptoms Genitourinary: Reports: no symptoms Subjective No acute events, mild tachycardia, vitals otherwise stable. on 2-3 liters oxygen , CXR with right effusion. Patient not arousable. Objective Last 24 Hour Vital Signs Date Time Temp Pulse Resp B/P (MAP) Pulse Ox O2 Delivery O2 Flow Rate FiO2 08/28/17 12:38 Nasal Cannula 4.0 36 08/28/17 12:37 108 20 95 Nasal Cannula 4.0 36 08/28/17 12:12 96.8 99 24 126/78 96 Nasal Cannula 3.0 96.8 08/28/17 11:50 104 18 94 08/28/17 08:48 105 08/28/17 08:15 97.7 99 24 112/67 100 Nasal Cannula 3.0 97.7 08/28/17 07:34 106 26 100 Nasal Cannula 3.0 32 08/28/17 07:25 101 18 98 Nasal Cannula 3.0 32 08/28/17 07:25 Nasal Cannula 3.0 32 08/28/17 07:24 98 Nasal Cannula 3.0 32 08/28/17 04:59 94 16 98 Facial 40 08/28/17 04:00 98.0 99 16 101/55 100 Bi-pap 40 98.0 08/28/17 04:00 40 08/28/17 03:03 96 16 96 Facial 40 08/28/17 01:40 93 26 99 Bi-pap 40 08/28/17 01:30 93 18 97 Bi-pap 40 08/28/17 01:30 93 18 97 Facial 40 08/28/17 00:00 97.9 93 14 118/69 98 Bi-pap 40 97.9 08/28/17 00:00 94 08/28/17 00:00 40 08/27/17 23:19 95 18 100 Facial 40 08/27/17 20:56 108 21 96 Facial 40 08/27/17 20:14 104 33 94 Facial 40 08/27/17 20:00 97.9 104 19 135/77 95 Bi-pap 40 97.9 08/27/17 20:00 40 08/27/17 19:01 115 20 97 Nasal Cannula 3.0 32 08/27/17 18:51 93 Nasal Cannula 3.0 32 08/27/17 18:51 112 20 93 Nasal Cannula 3.0 32 08/27/17 18:51 Nasal Cannula 3.0 32 08/27/17 13:47 103 20 93 Nasal Cannula 3.0 32 General Appearance: no apparent distress, cachetic, lethargic, thin EENT: PERRL/EOMI Neck: non-tender Rhythm: NSR Cardiovascular: normal peripheral pulses Respiratory/Chest: chest wall non-tender Abdomen: normal bowel sounds Extremities: normal range of motion Neurologic: abnormal CN, unresponsiveness Intake and Output 08/27/17 08/28/17 19:00 07:00 Intake Total 260 ml 200 ml Balance 260 ml 200 ml Intake Oral 260 ml 200 ml # Voids 3 1 Laboratory Tests Test 08/27/17 17:05 08/27/17 20:31 08/27/17 23:09 08/27/17 23:20 Troponin I 0.009 ng/mL (0.000-0.056) 0.019 ng/mL (0.000-0.056) C-Reactive Protein, Quantitative < 0.4 mg/dL (0.00-0.90) Pro-B-Type Natriuretic Peptide 672 pg/mL (0-125) H Vitamin D 25-Hydroxy Pending 25-Hydroxy Vitamin D2 Pending 25-Hydroxy Vitamin D3 Pending Rapid Plasma Reagin Pending Arterial Blood pH 7.247 (7.350-7.450) 7.351 (7.350-7.450) Arterial Blood Partial Pressure CO2 93.4 mmHg (35.0-45.0) *H 78.4 mmHg (35.0-45.0) *H Arterial Blood Partial Pressure O2 62.9 mmHg (75.0-100.0) L 98.1 mmHg (75.0-100.0) Arterial Blood HCO3 39.8 mmol/L (22.0-26.0) H 42.4 mmol/L (22.0-26.0) H Arterial Blood Oxygen Saturation 88.4 % (92.0-98.0) L 96.8 % (92.0-98.0) Arterial Blood Base Excess 10.0 14.4 Narciso Test Positive Positive Test 08/28/17 03:30 08/28/17 07:15 08/28/17 10:55 White Blood Count 6.4 K/UL (4.8-10.8) Red Blood Count 5.09 M/UL (4.20-5.40) Hemoglobin 8.7 G/DL (12.0-16.0) L Hematocrit 33.4 % (37.0-47.0) L Mean Corpuscular Volume 66 FL (80-99) L Mean Corpuscular Hemoglobin 17.1 PG (27.0-31.0) L Mean Corpuscular Hemoglobin Concent 26.0 G/DL (32.0-36.0) L Red Cell Distribution Width 20.5 % (11.6-14.8) H Platelet Count 387 K/UL (150-450) Mean Platelet Volume 4.9 FL (6.5-10.1) L Neutrophils (%) (Auto) 56.1 % (45.0-75.0) Lymphocytes (%) (Auto) 23.0 % (20.0-45.0) Monocytes (%) (Auto) 19.6 % (1.0-10.0) H Eosinophils (%) (Auto) 0.4 % (0.0-3.0) Basophils (%) (Auto) 1.0 % (0.0-2.0) Prothrombin Time 11.6 SEC (9.30-11.50) H Prothromb Time International Ratio 1.1 (0.9-1.1) Activated Partial Thromboplast Time 23 SEC (23-33) Sodium Level 145 MMOL/L (136-145) Potassium Level 3.7 MMOL/L (3.5-5.1) Chloride Level 107 MMOL/L (98-107) Carbon Dioxide Level 37 MMOL/L (21-32) H Anion Gap 1 mmol/L (5-15) L Blood Urea Nitrogen 11 mg/dL (7-18) Creatinine 0.6 MG/DL (0.55-1.30) Estimat Glomerular Filtration Rate > 60 mL/min (>60) Glucose Level 85 MG/DL (74-106) Hemoglobin A1c 6.7 % (4.3-6.0) H Uric Acid 5.4 MG/DL (2.6-7.2) Calcium Level 8.6 MG/DL (8.5-10.1) Phosphorus Level 2.0 MG/DL (2.5-4.9) L Magnesium Level 1.6 MG/DL (1.8-2.4) L Iron Level 17 ug/dL (50-175) L Total Iron Binding Capacity 353 ug/dL (250-450) Percent Iron Saturation 5 % (15-50) L Unsaturated Iron Binding 336 ug/dL (112-346) Ferritin 9 NG/ML (8-388) Total Bilirubin 0.5 MG/DL (0.2-1.0) Gamma Glutamyl Transpeptidase 14 U/L (5-85) Aspartate Amino Transf (AST/SGOT) 22 U/L (15-37) Alanine Aminotransferase (ALT/SGPT) 27 U/L (12-78) Alkaline Phosphatase 56 U/L (46-116) Total Creatine Kinase 66 U/L (26-308) Troponin I 0.009 ng/mL (0.000-0.056) 0.020 ng/mL (0.000-0.056) Pro-B-Type Natriuretic Peptide 722 pg/mL (0-125) H Total Protein 5.8 G/DL (6.4-8.2) L Albumin 2.3 G/DL (3.4-5.0) L Globulin 3.5 g/dL Albumin/Globulin Ratio 0.7 (1.0-2.7) L Prealbumin Pending Vitamin B12 Level 300 PG/ML (193-986) Folate 11.5 NG/ML (8.6-58.9) Arterial Blood pH 7.337 (7.350-7.450) Arterial Blood Partial Pressure CO2 69.0 mmHg (35.0-45.0) *H Arterial Blood Partial Pressure O2 91.8 mmHg (75.0-100.0) Arterial Blood HCO3 36.1 mmol/L (22.0-26.0) H Arterial Blood Oxygen Saturation 96.2 % (92.0-98.0) Arterial Blood Base Excess 8.6 Narciso Test Positive Microbiology Date/Time Source Procedure Growth Status 08/27/17 09:00 Urine,Clean Catch Urine Culture - Preliminary Gram Negative Bacillus 1 Resulted Robbin Diop M.D. Aug 28, 2017 13:41
--- NOTE | 2017-08-28 15:14 | Cardiology Report ---
APPROVED REPORT EKG Measurement Heart [id number] Normal sinus rhythm Right atrial enlargement Rightward axis ST elevation, consider anterior injury or acute infarct Abnormal ECG
--- NOTE | 2017-08-28 15:25 | Nephrology Progress Note ---
Assessment/Plan Problem List: (1) Hypoalbuminemia (2) Anemia (3) Failure to thrive (4) Pulmonary hypertension (5) Proteinuria Assessment Low MCV Anemia, low Iron Failure to Thrive h/o ETOH abuse Pulmonary HTN Mild Hypernatremia HypoAlbuminemia Proteinuria Tachycardia h/o Smoking Plan IV Iron Mag and Phos supplement 24 h urine protein, pending gastric support per consultants Subjective ROS Limited/Unobtainable: No Constitutional: Reports: malaise, weakness Objective Objective Last 24 Hour Vital Signs Date Time Temp Pulse Resp B/P (MAP) Pulse Ox O2 Delivery O2 Flow Rate FiO2 08/28/17 14:52 97 18 95 08/28/17 12:38 Nasal Cannula 4.0 36 08/28/17 12:37 108 20 95 Nasal Cannula 4.0 36 08/28/17 12:12 96.8 99 24 126/78 96 Nasal Cannula 3.0 96.8 08/28/17 12:00 100 08/28/17 11:50 104 18 94 08/28/17 08:48 105 08/28/17 08:15 97.7 99 24 112/67 100 Nasal Cannula 3.0 97.7 08/28/17 07:34 106 26 100 Nasal Cannula 3.0 32 08/28/17 07:25 101 18 98 Nasal Cannula 3.0 32 08/28/17 07:25 Nasal Cannula 3.0 32 08/28/17 07:24 98 Nasal Cannula 3.0 32 08/28/17 04:59 94 16 98 Facial 40 08/28/17 04:00 98.0 99 16 101/55 100 Bi-pap 40 98.0 08/28/17 04:00 40 08/28/17 03:03 96 16 96 Facial 40 08/28/17 01:40 93 26 99 Bi-pap 40 08/28/17 01:30 93 18 97 Bi-pap 40 08/28/17 01:30 93 18 97 Facial 40 08/28/17 00:00 97.9 93 14 118/69 98 Bi-pap 40 97.9 08/28/17 00:00 94 08/28/17 00:00 40 08/27/17 23:19 95 18 100 Facial 40 08/27/17 20:56 108 21 96 Facial 40 08/27/17 20:14 104 33 94 Facial 40 08/27/17 20:00 97.9 104 19 135/77 95 Bi-pap 40 97.9 08/27/17 20:00 40 08/27/17 19:01 115 20 97 Nasal Cannula 3.0 32 08/27/17 18:51 93 Nasal Cannula 3.0 32 08/27/17 18:51 112 20 93 Nasal Cannula 3.0 32 08/27/17 18:51 Nasal Cannula 3.0 32 Intake and Output 08/27/17 08/28/17 19:00 07:00 Intake Total 260 ml 200 ml Balance 260 ml 200 ml Intake Oral 260 ml 200 ml # Voids 3 1 Laboratory Tests 08/27/17 17:05: Troponin I 0.009, C-Reactive Protein, Quantitative < 0.4, Pro-B-Type Natriuretic Peptide 672H, Vitamin D 25-Hydroxy [Pending], 25-Hydroxy Vitamin D2 [Pending], 25-Hydroxy Vitamin D3 [Pending], Rapid Plasma Reagin [Pending] 08/27/17 20:31: Arterial Blood pH 7.247*L, Arterial Blood Partial Pressure CO2 93.4*H, Arterial Blood Partial Pressure O2 62.9L, Arterial Blood HCO3 39.8H, Arterial Blood Oxygen Saturation 88.4L, Arterial Blood Base Excess 10.0, Narciso Test Positive 08/27/17 23:09: Arterial Blood pH 7.351, Arterial Blood Partial Pressure CO2 78.4*H, Arterial Blood Partial Pressure O2 98.1, Arterial Blood HCO3 42.4H, Arterial Blood Oxygen Saturation 96.8, Arterial Blood Base Excess 14.4, Narciso Test Positive 08/27/17 23:20: Troponin I 0.019 08/28/17 03:30: White Blood Count 6.4, Red Blood Count 5.09, Hemoglobin 8.7L, Hematocrit 33.4L, Mean Corpuscular Volume 66L, Mean Corpuscular Hemoglobin 17.1L, Mean Corpuscular Hemoglobin Concent 26.0L, Red Cell Distribution Width 20.5H, Platelet Count 387, Mean Platelet Volume 4.9L, Neutrophils (%) (Auto) 56.1, Lymphocytes (%) (Auto) 23.0, Monocytes (%) (Auto) 19.6H, Eosinophils (%) (Auto) 0.4, Basophils (%) (Auto) 1.0, Prothrombin Time 11.6H, Prothromb Time International Ratio 1.1, Activated Partial Thromboplast Time 23, Sodium Level 145, Potassium Level 3.7, Chloride Level 107, Carbon Dioxide Level 37H, Anion Gap 1L, Blood Urea Nitrogen 11, Creatinine 0.6, Estimat Glomerular Filtration Rate > 60, Glucose Level 85, Hemoglobin A1c 6.7H, Uric Acid 5.4, Calcium Level 8.6, Phosphorus Level 2.0L, Magnesium Level 1.6L, Iron Level 17L, Total Iron Binding Capacity 353, Percent Iron Saturation 5L, Unsaturated Iron Binding 336, Ferritin 9, Total Bilirubin 0.5, Gamma Glutamyl Transpeptidase 14, Aspartate Amino Transf (AST/SGOT) 22, Alanine Aminotransferase (ALT/SGPT) 27, Alkaline Phosphatase 56, Total Creatine Kinase 66, Troponin I 0.009, Pro-B-Type Natriuretic Peptide 722H, Total Protein 5.8L, Albumin 2.3L, Globulin 3.5, Albumin/Globulin Ratio 0.7L, Prealbumin [Pending], Vitamin B12 Level 300, Folate 11.5 08/28/17 07:15: Arterial Blood pH 7.337L, Arterial Blood Partial Pressure CO2 69.0*H, Arterial Blood Partial Pressure O2 91.8, Arterial Blood HCO3 36.1H, Arterial Blood Oxygen Saturation 96.2, Arterial Blood Base Excess 8.6, Narciso Test Positive 08/28/17 10:55: Troponin I 0.020 Height (Feet): 5 Height (Inches): 11.00 Weight (Pounds): 166 Cardiovascular: tachycardia Respiratory/Chest: decreased breath sounds Extremities: other - leg edema COURTNEY BARBOZA Aug 28, 2017 15:25
--- NOTE | 2017-08-28 15:29 | General Progress Note ---
Assessment/Plan Problem List: (1) Acute on chronic diastolic CHF (congestive heart failure) ICD Codes: I50.33 - Acute on chronic diastolic (congestive) heart failure SNOMED: 66359165, 884125004 (2) COPD (chronic obstructive pulmonary disease) ICD Codes: J44.9 - Chronic obstructive pulmonary disease, unspecified SNOMED: 83116482 (3) H/O tobacco use, presenting hazards to health ICD Codes: Z87.891 - Personal history of nicotine dependence SNOMED: 0498121155502 (4) Anemia ICD Codes: D64.9 - Anemia, unspecified SNOMED: 699056488 (5) Alcohol abuse ICD Codes: F10.10 - Alcohol abuse, uncomplicated SNOMED: 19415287 (6) Noncompliance ICD Codes: Z91.19 - Patient's noncompliance with other medical treatment and regimen SNOMED: 4740381 (7) Bipolar disorder ICD Codes: F31.9 - Bipolar disorder, unspecified SNOMED: 11885648 (8) Acute respiratory failure with hypoxia ICD Codes: J96.01 - Acute respiratory failure with hypoxia SNOMED: 79260728, 410347365 (9) Failure to thrive SNOMED: 94148090 (10) Altered mental state ICD Codes: R41.82 - Altered mental status, unspecified SNOMED: 451985390 (11) FTT (failure to thrive) in adult ICD Codes: R62.7 - Adult failure to thrive SNOMED: 257423651 (12) UTI (urinary tract infection) ICD Codes: N39.0 - Urinary tract infection, site not specified SNOMED: 63383190 (13) Hypomagnesemia ICD Codes: E83.42 - Hypomagnesemia SNOMED: 766010871 Status: stable, progressing Assessment/Plan - Cardiology, nephrology, neurology, pulmonology, psychiatry consulted #AMS - CT head negative for acute pathology. Check RPR, vitamin B12, folate, TSH, UA to r/o metabolic etiology for AMS. Now improved. - apprec neuro rec's #Acute on chronic CHF exacerbation - ECHO with 60% EF with diastolic dysfunction noted and mild PAH - CXR with small bilateral pleural effusion - EKG/trend trop - BNP 722 - lasix 20mg IV qd - monitor I&O - no indication for RHC at this time - apprec cards rec's #UTI - UA with positive nitrites. F/u urine cx -- GNB. - Continue keflex for now #COPD - pulmonary toilet. titrate FiO2 down for O2 sats to be greater than 90% - duonebs ATC and prn - Advair and spiriva - apprec pulm rec's #Alcohol abuse - multivitamin, folate, thiamine daily - encourage compliance and alcohol cessation #FTT - check prealbumin/albumin - nutrition consult #Bipolar d/o - psychiatry consulted - continue to reduce mind altering meds at this time given acute AMS #Electrolyte imbalance - replete Mg with 1g MgSO4 today - monitor BMP and Mg DVT Prophylaxis: SCD, HSQ Code Status: Full Hospital Classification Declaration: Based on this initial evaluation, and depending on the patient's clinical course, I anticipate that this patient will require hospitalization for 2-3 days for acute on chronic CHF exacerbation and close respiratory/hemodynamic monitoring. Disposition: Once the patient is stable to leave the hospital, I anticipate the patient will likely be discharged to the following environment: home with HH vs SNF I spent 32 minutes on this patient's case, and 20 minutes were dedicated to counseling and/or care coordination. Discussed with patient/family, nursing staff, SW/CM, pulmonology, cardiology, neurology regarding clinical status, treatment course, and disposition planning. Time of note may not reflect time of encounter. Subjective Date patient seen: Aug 28, 2017 Time patient seen: 15:26 Allergies: Coded Allergies: CODEINE (Verified Allergy, Intermediate, Itchy, 08/26/17) Subjective - no acute events overnight - AF, HDS - continues to report mild sob. on NC saturating 96% on 2L - venous U/S negative - agreeable to SNF for acute rehab given weakness Objective Last 24 Hour Vital Signs Date Time Temp Pulse Resp B/P (MAP) Pulse Ox O2 Delivery O2 Flow Rate FiO2 08/28/17 14:52 97 18 95 08/28/17 12:38 Nasal Cannula 4.0 36 08/28/17 12:37 108 20 95 Nasal Cannula 4.0 36 08/28/17 12:12 96.8 99 24 126/78 96 Nasal Cannula 3.0 96.8 08/28/17 12:00 100 08/28/17 11:50 104 18 94 08/28/17 08:48 105 08/28/17 08:15 97.7 99 24 112/67 100 Nasal Cannula 3.0 97.7 08/28/17 07:34 106 26 100 Nasal Cannula 3.0 32 08/28/17 07:25 101 18 98 Nasal Cannula 3.0 32 08/28/17 07:25 Nasal Cannula 3.0 32 08/28/17 07:24 98 Nasal Cannula 3.0 32 08/28/17 04:59 94 16 98 Facial 40 08/28/17 04:00 98.0 99 16 101/55 100 Bi-pap 40 98.0 08/28/17 04:00 40 08/28/17 03:03 96 16 96 Facial 40 08/28/17 01:40 93 26 99 Bi-pap 40 08/28/17 01:30 93 18 97 Bi-pap 40 08/28/17 01:30 93 18 97 Facial 40 08/28/17 00:00 97.9 93 14 118/69 98 Bi-pap 40 97.9 08/28/17 00:00 94 08/28/17 00:00 40 08/27/17 23:19 95 18 100 Facial 40 08/27/17 20:56 108 21 96 Facial 40 08/27/17 20:14 104 33 94 Facial 40 08/27/17 20:00 97.9 104 19 135/77 95 Bi-pap 40 97.9 08/27/17 20:00 40 08/27/17 19:01 115 20 97 Nasal Cannula 3.0 32 08/27/17 18:51 93 Nasal Cannula 3.0 32 08/27/17 18:51 112 20 93 Nasal Cannula 3.0 32 08/27/17 18:51 Nasal Cannula 3.0 32 Intake and Output 08/27/17 08/28/17 19:00 07:00 Intake Total 260 ml 200 ml Balance 260 ml 200 ml Intake Oral 260 ml 200 ml # Voids 3 1 Laboratory Tests 08/27/17 17:05: Troponin I 0.009, C-Reactive Protein, Quantitative < 0.4, Pro-B-Type Natriuretic Peptide 672H, Vitamin D 25-Hydroxy [Pending], 25-Hydroxy Vitamin D2 [Pending], 25-Hydroxy Vitamin D3 [Pending], Rapid Plasma Reagin [Pending] 08/27/17 20:31: Arterial Blood pH 7.247*L, Arterial Blood Partial Pressure CO2 93.4*H, Arterial Blood Partial Pressure O2 62.9L, Arterial Blood HCO3 39.8H, Arterial Blood Oxygen Saturation 88.4L, Arterial Blood Base Excess 10.0, Narciso Test Positive 08/27/17 23:09: Arterial Blood pH 7.351, Arterial Blood Partial Pressure CO2 78.4*H, Arterial Blood Partial Pressure O2 98.1, Arterial Blood HCO3 42.4H, Arterial Blood Oxygen Saturation 96.8, Arterial Blood Base Excess 14.4, Narciso Test Positive 08/27/17 23:20: Troponin I 0.019 08/28/17 03:30: White Blood Count 6.4, Red Blood Count 5.09, Hemoglobin 8.7L, Hematocrit 33.4L, Mean Corpuscular Volume 66L, Mean Corpuscular Hemoglobin 17.1L, Mean Corpuscular Hemoglobin Concent 26.0L, Red Cell Distribution Width 20.5H, Platelet Count 387, Mean Platelet Volume 4.9L, Neutrophils (%) (Auto) 56.1, Lymphocytes (%) (Auto) 23.0, Monocytes (%) (Auto) 19.6H, Eosinophils (%) (Auto) 0.4, Basophils (%) (Auto) 1.0, Prothrombin Time 11.6H, Prothromb Time International Ratio 1.1, Activated Partial Thromboplast Time 23, Sodium Level 145, Potassium Level 3.7, Chloride Level 107, Carbon Dioxide Level 37H, Anion Gap 1L, Blood Urea Nitrogen 11, Creatinine 0.6, Estimat Glomerular Filtration Rate > 60, Glucose Level 85, Hemoglobin A1c 6.7H, Uric Acid 5.4, Calcium Level 8.6, Phosphorus Level 2.0L, Magnesium Level 1.6L, Iron Level 17L, Total Iron Binding Capacity 353, Percent Iron Saturation 5L, Unsaturated Iron Binding 336, Ferritin 9, Total Bilirubin 0.5, Gamma Glutamyl Transpeptidase 14, Aspartate Amino Transf (AST/SGOT) 22, Alanine Aminotransferase (ALT/SGPT) 27, Alkaline Phosphatase 56, Total Creatine Kinase 66, Troponin I 0.009, Pro-B-Type Natriuretic Peptide 722H, Total Protein 5.8L, Albumin 2.3L, Globulin 3.5, Albumin/Globulin Ratio 0.7L, Prealbumin [Pending], Vitamin B12 Level 300, Folate 11.5 08/28/17 07:15: Arterial Blood pH 7.337L, Arterial Blood Partial Pressure CO2 69.0*H, Arterial Blood Partial Pressure O2 91.8, Arterial Blood HCO3 36.1H, Arterial Blood Oxygen Saturation 96.2, Arterial Blood Base Excess 8.6, Narciso Test Positive 08/28/17 10:55: Troponin I 0.020 Height (Feet): 5 Height (Inches): 11.00 Weight (Pounds): 166 General Appearance: alert, mild distress EENT: PERRL/EOMI, normal ENT inspection Neck: non-tender, normal alignment, supple Cardiovascular: normal peripheral pulses, normal rate, regular rhythm Respiratory/Chest: chest wall non-tender, lungs clear, normal breath sounds Abdomen: normal bowel sounds, non tender, soft Edema: mild edema 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
[2017-08-28 15:42] VITALS: BP 136/80
--- NOTE | 2017-08-28 16:19 | Pulmonology Progress Note ---
Assessment/Plan Problems: (1) FTT (failure to thrive) in adult (2) COPD (chronic obstructive pulmonary disease) (3) CHF (congestive heart failure) (4) Anemia (5) Bipolar disorder (6) H/O tobacco use, presenting hazards to health (7) Noncompliance (8) Acute on chronic diastolic CHF (congestive heart failure) (9) Acute respiratory failure with hypoxia (10) Altered mental state (11) Hypoalbuminemia (12) Pulmonary hypertension (13) UTI (urinary tract infection) Assessment/Plan ASSESSMENT: 1. Alteration of mental status, likely multifactorial secondary to underlying bipolar disorder, alcoholism, and superimposed urinary tract infection. 2. Acute on chronic hypoxemic respiratory failure, likely secondary to underlying pulmonary hypertension, chronic obstructive pulmonary disease, and diastolic dysfunction. 3. No evidence of decompensated heart failure at this time. 4. Congestive heart failure with diastolic dysfunction. 5. Chronic obstructive pulmonary disease. 6. Chronic hypercapnic respiratory failure. 7. Severe sleep apnea with an AHI of 30. 8. Alcoholism. 9. Extensive former tobacco use. 10. Bipolar disorder. 11. Anxiety disorder. 12. Depression. 13. Iron-deficiency anemia. 14. Failure to thrive. 15. Diabetes TREATMENT PLAN: 1. BiPAP at bedtime and p.r.n. 2. Titrate down FiO2 to keep saturations greater than 90%. 3. Advair and Spiriva (Sub for Advair and increase). 4. [id number] and p.r.n. bronchodilators. 5. Monitor volume status: Volume management will be very tricky in this patient. She has hyperdynamic LV function with cavity obliteration consistent with intravascular volume depletion. However, she has elevated filling pressures secondary to her pulmonary hypertension. I suspect there is a component of preload dependent. SPOT DOSE LASIX 6. Follow up ventilation/perfusion scan to evaluate for CTEPH. 7. Monitor MS, F/U AMS labs, F/U neuro recs 8. F/U psych redcs 9. Multivitamin, thiamine, and folate. 10. Monitor for signs of alcohol withdrawal. 11. Aspiration precautions. 12. Start SSI 13. DVT prophylaxis. Heparin subcutaneous. 15. Disposition and planning. The patient will likely need to go to a SNF and then to an outpatient rehabilitation program. Subjective Allergies: Coded Allergies: CODEINE (Verified Allergy, Intermediate, Itchy, 08/26/17) Subjective AFVSS, on 2-3L O2, was on BiPAP ON Lethargic yesterday after getting Ativan Better now, no F/C, no CP, no SOB, + cough Objective Last 24 Hour Vital Signs Date Time Temp Pulse Resp B/P (MAP) Pulse Ox O2 Delivery O2 Flow Rate FiO2 08/28/17 15:42 98.1 103 26 136/80 90 Nasal Cannula 4.5 98.1 08/28/17 14:52 97 18 95 08/28/17 12:38 Nasal Cannula 4.0 36 08/28/17 12:37 108 20 95 Nasal Cannula 4.0 36 08/28/17 12:12 96.8 99 24 126/78 96 Nasal Cannula 3.0 96.8 08/28/17 12:00 100 08/28/17 11:50 104 18 94 08/28/17 08:48 105 08/28/17 08:15 97.7 99 24 112/67 100 Nasal Cannula 3.0 97.7 08/28/17 07:34 106 26 100 Nasal Cannula 3.0 32 08/28/17 07:25 101 18 98 Nasal Cannula 3.0 32 08/28/17 07:25 Nasal Cannula 3.0 32 08/28/17 07:24 98 Nasal Cannula 3.0 32 08/28/17 04:59 94 16 98 Facial 40 08/28/17 04:00 98.0 99 16 101/55 100 Bi-pap 40 98.0 08/28/17 04:00 40 08/28/17 03:03 96 16 96 Facial 40 08/28/17 01:40 93 26 99 Bi-pap 40 08/28/17 01:30 93 18 97 Bi-pap 40 08/28/17 01:30 93 18 97 Facial 40 08/28/17 00:00 97.9 93 14 118/69 98 Bi-pap 40 97.9 08/28/17 00:00 94 08/28/17 00:00 40 08/27/17 23:19 95 18 100 Facial 40 08/27/17 20:56 108 21 96 Facial 40 08/27/17 20:14 104 33 94 Facial 40 08/27/17 20:00 97.9 104 19 135/77 95 Bi-pap 40 97.9 08/27/17 20:00 40 08/27/17 19:01 115 20 97 Nasal Cannula 3.0 32 08/27/17 18:51 93 Nasal Cannula 3.0 32 08/27/17 18:51 112 20 93 Nasal Cannula 3.0 32 08/27/17 18:51 Nasal Cannula 3.0 32 Intake and Output 08/27/17 08/28/17 19:00 07:00 Intake Total 260 ml 200 ml Balance 260 ml 200 ml Intake Oral 260 ml 200 ml # Voids 3 1 General Appearance: no acute distress, cachetic, other - frail female HEENT: normocephalic, atraumatic, anicteric, mucous membranes moist Respiratory/Chest: chest wall non-tender, lungs clear, normal breath sounds, no respiratory distress Cardiovascular: normal peripheral pulses, normal rate, regular rhythm Abdomen: normal bowel sounds, soft, non tender, no organomegaly, non distended , no mass Extremities: no cyanosis, no clubbing, other - 1+ VIDA Microbiology Date/Time Source Procedure Growth Status 08/27/17 09:00 Urine,Clean Catch Urine Culture - Preliminary Gram Negative Bacillus 1 Resulted Laboratory Tests 08/27/17 17:05: Troponin I 0.009, C-Reactive Protein, Quantitative < 0.4, Pro-B-Type Natriuretic Peptide 672H, Vitamin D 25-Hydroxy [Pending], 25-Hydroxy Vitamin D2 [Pending], 25-Hydroxy Vitamin D3 [Pending], Rapid Plasma Reagin [Pending] 08/27/17 20:31: Arterial Blood pH 7.247*L, Arterial Blood Partial Pressure CO2 93.4*H, Arterial Blood Partial Pressure O2 62.9L, Arterial Blood HCO3 39.8H, Arterial Blood Oxygen Saturation 88.4L, Arterial Blood Base Excess 10.0, Narciso Test Positive 08/27/17 23:09: Arterial Blood pH 7.351, Arterial Blood Partial Pressure CO2 78.4*H, Arterial Blood Partial Pressure O2 98.1, Arterial Blood HCO3 42.4H, Arterial Blood Oxygen Saturation 96.8, Arterial Blood Base Excess 14.4, Narciso Test Positive 08/27/17 23:20: Troponin I 0.019 08/28/17 03:30: White Blood Count 6.4, Red Blood Count 5.09, Hemoglobin 8.7L, Hematocrit 33.4L, Mean Corpuscular Volume 66L, Mean Corpuscular Hemoglobin 17.1L, Mean Corpuscular Hemoglobin Concent 26.0L, Red Cell Distribution Width 20.5H, Platelet Count 387, Mean Platelet Volume 4.9L, Neutrophils (%) (Auto) 56.1, Lymphocytes (%) (Auto) 23.0, Monocytes (%) (Auto) 19.6H, Eosinophils (%) (Auto) 0.4, Basophils (%) (Auto) 1.0, Prothrombin Time 11.6H, Prothromb Time International Ratio 1.1, Activated Partial Thromboplast Time 23, Sodium Level 145, Potassium Level 3.7, Chloride Level 107, Carbon Dioxide Level 37H, Anion Gap 1L, Blood Urea Nitrogen 11, Creatinine 0.6, Estimat Glomerular Filtration Rate > 60, Glucose Level 85, Hemoglobin A1c 6.7H, Uric Acid 5.4, Calcium Level 8.6, Phosphorus Level 2.0L, Magnesium Level 1.6L, Iron Level 17L, Total Iron Binding Capacity 353, Percent Iron Saturation 5L, Unsaturated Iron Binding 336, Ferritin 9, Total Bilirubin 0.5, Gamma Glutamyl Transpeptidase 14, Aspartate Amino Transf (AST/SGOT) 22, Alanine Aminotransferase (ALT/SGPT) 27, Alkaline Phosphatase 56, Total Creatine Kinase 66, Troponin I 0.009, Pro-B-Type Natriuretic Peptide 722H, Total Protein 5.8L, Albumin 2.3L, Globulin 3.5, Albumin/Globulin Ratio 0.7L, Prealbumin [Pending], Vitamin B12 Level 300, Folate 11.5 08/28/17 07:15: Arterial Blood pH 7.337L, Arterial Blood Partial Pressure CO2 69.0*H, Arterial Blood Partial Pressure O2 91.8, Arterial Blood HCO3 36.1H, Arterial Blood Oxygen Saturation 96.2, Arterial Blood Base Excess 8.6, Narciso Test Positive 08/28/17 10:55: Troponin I 0.020 Current Medications Medications (Trade) Dose Ordered Sig/Natividad Route PRN Reason Start Time Stop Time Status Last Admin Dose Admin Acetaminophen (Tylenol) 650 mg Q4H PRN ORAL Mild Pain/Temp > 100.5 08/26/17 15:30 09/25/17 15:29 Albuterol/ Ipratropium (Albuterol/ Ipratropium) 3 ml Q4H PRN HHN Shortness of Breath 08/27/17 11:00 09/01/17 10:59 Albuterol/ Ipratropium (Albuterol/ Ipratropium) 3 ml Q6HRT HHN 08/27/17 13:00 09/01/17 12:59 08/28/17 12:37 Cephalexin (Keflex) 500 mg BID ORAL 08/28/17 18:00 09/04/17 17:59 Diazepam (Valium) 5 mg EVERY 4 HOURS PRN ORAL For Anxiety 08/27/17 22:30 09/03/17 22:29 Folic Acid (Folate) 1 mg DAILY ORAL 08/28/17 09:00 09/27/17 08:59 08/28/17 10:05 Furosemide (Lasix) 20 mg DAILY IV 08/28/17 09:00 09/27/17 08:59 08/28/17 10:05 Haloperidol Lactate (Haldol) 5 mg Q6H PRN IM Agitation 08/27/17 21:45 09/26/17 21:44 Heparin Sodium (Porcine) (Heparin 5000 units/ml) 5,000 units EVERY 12 HOURS SUBQ 08/26/17 21:00 09/25/17 20:59 08/27/17 21:39 Iron Sucrose 100 mg/Sodium Chloride 115 ml @ 460 mls/hr BEDTIME IV 08/29/17 21:00 09/28/17 20:59 Iron Sucrose 200 mg/Sodium Chloride 120 ml @ 240 mls/hr ONCE IV 08/28/17 21:00 08/28/17 22:00 Lansoprazole (Prevacid) 30 mg BID ORAL 08/27/17 18:00 09/26/17 17:59 08/28/17 10:05 Magnesium Sulfate 100 ml @ 100 mls/hr ONCE ONCE IVPB 08/28/17 16:30 08/28/17 17:29 Multivitamins (Multivitamins) 1 tab DAILY ORAL 08/28/17 09:00 09/27/17 08:59 08/28/17 10:05 Ondansetron HCl (Zofran) 4 mg Q6H PRN IVP Nausea & Vomiting 08/26/17 15:30 09/25/17 15:29 Salmeterol Xinafoate/ Fluticasone (Advair 250/50 Diskus) 1 puffs BID INH 08/27/17 18:00 09/26/17 17:59 08/28/17 08:42 Thiamine HCl (Vitamin B1) 100 mg DAILY ORAL 08/28/17 09:00 09/27/17 08:59 08/28/17 10:05 Tiotropium [place] (Spiriva Inhaler) 1 puff DAILY INH 08/28/17 09:00 09/27/17 08:59 08/28/17 08:42 Guevara Ayon MD Aug 28, 2017 16:19
[2017-08-28] MEDS: NovoLOG Insulin Flexpen SUBQ SCH ×2 (18:03→20:50)
--- NOTE | 2017-08-28 19:39 | Neurology Progress Note ---
Interim History Interim History Interim History Ms. Reina has woken up. She feels better. She continues to be cognitively impoverished. She has not walked today. She did however sit on the commode for 1.5 hours. She denies any new problems. Review of Systems Neuro Review of Systems Benign. Objective Physical Exam Last Vital Signs Date Time Temp Pulse Resp B/P (MAP) Pulse Ox O2 Delivery O2 Flow Rate FiO2 08/28/17 18:56 104 23 99 Nasal Cannula 3.0 32 08/28/17 15:42 98.1 136/80 98.1 Laboratory Tests Test 08/27/17 20:31 08/27/17 23:09 08/27/17 23:20 08/28/17 03:30 Arterial Blood pH 7.247 (7.350-7.450) 7.351 (7.350-7.450) Arterial Blood Partial Pressure CO2 93.4 mmHg (35.0-45.0) *H 78.4 mmHg (35.0-45.0) *H Arterial Blood Partial Pressure O2 62.9 mmHg (75.0-100.0) L 98.1 mmHg (75.0-100.0) Arterial Blood HCO3 39.8 mmol/L (22.0-26.0) H 42.4 mmol/L (22.0-26.0) H Arterial Blood Oxygen Saturation 88.4 % (92.0-98.0) L 96.8 % (92.0-98.0) Arterial Blood Base Excess 10.0 14.4 Narciso Test Positive Positive Troponin I 0.019 ng/mL (0.000-0.056) 0.009 ng/mL (0.000-0.056) White Blood Count 6.4 K/UL (4.8-10.8) Red Blood Count 5.09 M/UL (4.20-5.40) Hemoglobin 8.7 G/DL (12.0-16.0) L Hematocrit 33.4 % (37.0-47.0) L Mean Corpuscular Volume 66 FL (80-99) L Mean Corpuscular Hemoglobin 17.1 PG (27.0-31.0) L Mean Corpuscular Hemoglobin Concent 26.0 G/DL (32.0-36.0) L Red Cell Distribution Width 20.5 % (11.6-14.8) H Platelet Count 387 K/UL (150-450) Mean Platelet Volume 4.9 FL (6.5-10.1) L Neutrophils (%) (Auto) 56.1 % (45.0-75.0) Lymphocytes (%) (Auto) 23.0 % (20.0-45.0) Monocytes (%) (Auto) 19.6 % (1.0-10.0) H Eosinophils (%) (Auto) 0.4 % (0.0-3.0) Basophils (%) (Auto) 1.0 % (0.0-2.0) Prothrombin Time 11.6 SEC (9.30-11.50) H Prothromb Time International Ratio 1.1 (0.9-1.1) Activated Partial Thromboplast Time 23 SEC (23-33) Sodium Level 145 MMOL/L (136-145) Potassium Level 3.7 MMOL/L (3.5-5.1) Chloride Level 107 MMOL/L (98-107) Carbon Dioxide Level 37 MMOL/L (21-32) H Anion Gap 1 mmol/L (5-15) L Blood Urea Nitrogen 11 mg/dL (7-18) Creatinine 0.6 MG/DL (0.55-1.30) Estimat Glomerular Filtration Rate > 60 mL/min (>60) Glucose Level 85 MG/DL (74-106) Hemoglobin A1c 6.7 % (4.3-6.0) H Uric Acid 5.4 MG/DL (2.6-7.2) Calcium Level 8.6 MG/DL (8.5-10.1) Phosphorus Level 2.0 MG/DL (2.5-4.9) L Magnesium Level 1.6 MG/DL (1.8-2.4) L Iron Level 17 ug/dL (50-175) L Total Iron Binding Capacity 353 ug/dL (250-450) Percent Iron Saturation 5 % (15-50) L Unsaturated Iron Binding 336 ug/dL (112-346) Ferritin 9 NG/ML (8-388) Total Bilirubin 0.5 MG/DL (0.2-1.0) Gamma Glutamyl Transpeptidase 14 U/L (5-85) Aspartate Amino Transf (AST/SGOT) 22 U/L (15-37) Alanine Aminotransferase (ALT/SGPT) 27 U/L (12-78) Alkaline Phosphatase 56 U/L (46-116) Total Creatine Kinase 66 U/L (26-308) Pro-B-Type Natriuretic Peptide 722 pg/mL (0-125) H Total Protein 5.8 G/DL (6.4-8.2) L Albumin 2.3 G/DL (3.4-5.0) L Globulin 3.5 g/dL Albumin/Globulin Ratio 0.7 (1.0-2.7) L Prealbumin Pending Vitamin B12 Level 300 PG/ML (193-986) Folate 11.5 NG/ML (8.6-58.9) Test 08/28/17 07:15 08/28/17 10:55 Arterial Blood pH 7.337 (7.350-7.450) Arterial Blood Partial Pressure CO2 69.0 mmHg (35.0-45.0) *H Arterial Blood Partial Pressure O2 91.8 mmHg (75.0-100.0) Arterial Blood HCO3 36.1 mmol/L (22.0-26.0) H Arterial Blood Oxygen Saturation 96.2 % (92.0-98.0) Arterial Blood Base Excess 8.6 Narciso Test Positive Troponin I 0.020 ng/mL (0.000-0.056) Neurologic Exam Objective PHYSICAL EXAMINATION: GENERAL: She is a well-developed, relatively well-nourished black lady, lying in bed, in no acute distress. HEAD: Normocephalic and atraumatic. EENT: Examination benign. NECK: No neck rigidity was observed. NEUROLOGICAL EXAMINATION: MENTAL STATUS EXAMINATION: She was awake and alert. She was oriented to self, hospital and August only. She was able to recall 3/3 words immediately but could only remember 1/3 in 1 and 3 minutes. She was able to remember presidents Trump and Obama only with hints. Her mathematical skills were impaired. Her visuospatial function was relatively good. SPEECH: She had a mild dysarthria. LANGUAGE: She had an anomia for low frequency words. CRANIAL NERVE EXAMINATION: II: The visual melara were intact on confrontation. III, IV & : The external ocular movements were full and the pupils were 3 mm in diameter and reactive sluggishly to light. V: She had normal facial sensations and the temporales, masseters and pterygoids functioned normally. VII: She had normal facial expressions and no facial asymmetry. VIII: She was able to hear well and had no nystagmus. IX: The palate moved symmetrically on phonation. X: She had no hoarseness of voice. XI: The sternocleidomastoids and trapezii functioned normally. XII: The tongue was in the midline. MOTOR SYSTEM: The tone was normal in all four extremities. Examination of muscle mass revealed no focal wasting. Examination of power revealed G 5/5 power except for G 4++/5 in the iliopsoas muscle bilaterally. SENSORY EXAMINATION: She had intact sensations to pin prick, light touch and graphesthesia. Position sense was diminished in the toes bilaterally. REFLEXES: 0 at the biceps, triceps, brachioradialis, knees, and ankles. The plantar responses were mute bilaterally. COORDINATION: She performed well on [id number] and [id number] testing. STANCE: She stood up with contact guard. GAIT: She walked well with contact guard, with a wide based gait. ABNORMAL MOVEMENTS: Asterixis: G 1/4 Impression/Recommendations Diagnostic Impression 1. Ms. Latoya Reina is a 62-year-old, right-handed, black lady, who does have past history of multiple medical problems including bipolar affective disorder, chronic obstructive pulmonary disease, obstructive sleep apnea, mixed pulmonary hypertension, diastolic dysfunction, iron deficiency anemia, alcohol abuse, and tobacco abuse, who was hospitalized for failure to thrive at home and an altered mental state. 2. On 08/27/17 she had a period of agitation for which she was given Ativan. Following that she became unresponsive. ABGs revealed that she was severely hypercapneic and hypoxemic. Those problems were corrected and she is brighter today. 3. She has woken up. She feels better. She continues to be cognitively impoverished. She has not walked yet. She did however sit on the commode for 1.5 hours. She denies any new problems. 4. On neurological examination, at this time, she does have problems with orientation, recent and remote memory, higher cognitive function and language. She also has proximal lower extremity weakness, decreased position sense in the toes bilaterally, inability to perform Romberg test, globally absent deep tendon reflexes, a wide based stance and a wide based unsteady gait. 5. Laboratory data noted on my initial evaluation revealed an anemia with a hemoglobin of 9.1 G. The arterial blood gas performed on 08/26/2017, revealed that she was retaining carbon dioxide with pCO2 of 60.8 and was hypoxemic with a pO2 of 43 with pH of 7.38. The chemistry panel revealed that her sodium was elevated to 147, chloride elevated to 108, CO2 elevated to 39, glucose elevated to 108, her BNP was elevated to 672, and TSH was normal at 1.18. Her urinalysis revealed 2-4 RBCs and 0-2 WBCs per high-power field with negative leukocyte esterase. 6. Laboratory data obtained yesterday revealed a pCO2 elevated at 93, a pO2 down at 63, pH down to 7.25, HB down at 8.7 G and a low Vitamin B 12 at [address] 7[address] scan of the brain without contrast performed on 08/26/2017, revealed mild atrophy and some deep white matter changes, but no acute pathology. 8. The patient's history and neurological examination are most compatible with, a significant metabolic encephalopathy and yesterday a toxic encephalopathy. 9. She says that people have told her that she is getting demented. In the presence of an ongoing encephalopathy one cannot make a diagnosis of dementia. Recommendations 1. Continue present management. 2. Vitamin B12 - 1000 mcg SC daily x 3 and then monthly. 3. All mind-altering drugs should be held. 4. EEG to evaluate degree and type of encephalopathy. 5. Mobilize with PT. 6. Observe closely. Samuel Tracy M.D., M.S.P.H. SAMUEL TRACY Aug 28, 2017 19:39
[2017-08-28] MEDS ORDERED: Vitamin B12 1000mcg/ml Inj SUBQ SCH (20:00)
[2017-08-28 20:51] VITALS: BP 105/57
[2017-08-28] MEDS ORDERED: Iron Sucrose 200 MG in NS 110 ML IV SCH (21:00)
[2017-08-29] VITALS: BP 142/63
[2017-08-29] MEDS: Albuterol/Ipratropium 3ml neb HHN SCH ×4 (01:02→19:31)
[2017-08-29 04:00] VITALS: BP 122/69
[2017-08-29 04:33] LABS: BASOPHILS % (AUTO) 2.4 % (0.0-2.0); EOSINOPHILS % (AUTO) 1.2 % (0.0-3.0); HEMATOCRIT 37.3 % (37.0-47.0); HEMOGLOBIN 9.4 G/DL (12.0-16.0); LYMPHOCYTES % (AUTO) 20.3 % (20.0-45.0); MEAN CORPUSCULAR VOLUME 67 FL (80-99); MONOCYTES % (AUTO) 17.3 % (1.0-10.0); NEUTROPHILS % (AUTO) 58.8 % (45.0-75.0); PLATELET COUNT 364 K/UL (150-450); RED BLOOD COUNT 5.55 M/UL (4.20-5.40); WHITE BLOOD COUNT 5.3 K/UL (4.8-10.8)
[2017-08-29 05:00] LABS: ANION GAP 4 mmol/L (5-15); BLOOD UREA NITROGEN 8 mg/dL (7-18); CALCIUM 8.3 MG/DL (8.5-10.1); CARBON DIOXIDE 39 MMOL/L (21-32); CHLORIDE 102 MMOL/L (98-107); CREATININE 0.6 MG/DL (0.55-1.30); POTASSIUM 3.8 MMOL/L (3.5-5.1); SODIUM 145 MMOL/L (136-145)
[2017-08-29] MEDS: NovoLOG Insulin Flexpen SUBQ SCH ×4 (06:37→21:00)
--- NOTE | 2017-08-29 08:51 | Pulmonology Progress Note ---
Assessment/Plan Problems: (1) FTT (failure to thrive) in adult (2) COPD (chronic obstructive pulmonary disease) (3) CHF (congestive heart failure) (4) Anemia (5) Bipolar disorder (6) H/O tobacco use, presenting hazards to health (7) Noncompliance (8) Acute on chronic diastolic CHF (congestive heart failure) (9) Acute respiratory failure with hypoxia (10) Altered mental state (11) Hypoalbuminemia (12) Pulmonary hypertension (13) UTI (urinary tract infection) Assessment/Plan ASSESSMENT: 1. Alteration of mental status, likely multifactorial secondary to underlying bipolar disorder, alcoholism, and superimposed urinary tract infection. 2. Acute on chronic hypoxemic respiratory failure, likely secondary to underlying pulmonary hypertension, chronic obstructive pulmonary disease, and diastolic dysfunction. 3. No evidence of decompensated heart failure at this time. 4. Congestive heart failure with diastolic dysfunction. 5. Chronic obstructive pulmonary disease. 6. Chronic hypercapnic respiratory failure. 7. Severe sleep apnea with an AHI of 30. 8. Alcoholism. 9. Extensive former tobacco use. 10. Bipolar disorder. 11. Anxiety disorder. 12. Depression. 13. Iron-deficiency anemia. 14. Failure to thrive. 15. Diabetes TREATMENT PLAN: 1. BiPAP at bedtime and p.r.n. - ENCOURAGE COMPLIANCE 2. Titrate down FiO2 to keep saturations greater than 90%. 3. Advair and Spiriva (Sub for Advair and increase). 4. [id number] and p.r.n. bronchodilators. 5. Monitor volume status: Volume management will be very tricky in this patient. She has hyperdynamic LV function with cavity obliteration consistent with intravascular volume depletion. However, she has elevated filling pressures secondary to her pulmonary hypertension. I suspect there is a component of preload dependent. SPOT DOSE LASIX 6. Follow up ventilation/perfusion scan to evaluate for CTEPH. 7. Monitor MS, F/U AMS labs, F/U neuro recs, B12 x 3 doses, F/U EEG 8. F/U psych redcs 9. Multivitamin, thiamine, and folate. 10. Monitor for signs of alcohol withdrawal. 11. Aspiration precautions. 12. Continue SSI 13. DVT prophylaxis. Heparin subcutaneous. 14. CT CHEST/ABDOMEN/PELVIS - malignancy eval 15. Disposition and planning. The patient will likely need to go to a SNF and then to an outpatient rehabilitation program. Subjective Allergies: Coded Allergies: CODEINE (Verified Allergy, Intermediate, Itchy, 08/26/17) Subjective AFVSS, on 2-3L O2, refused BiPAP O/N MS better overall Neuro eval noted, getting B12 and EEG pending No F/C, no CP, no SOB, + cough Objective Last 24 Hour Vital Signs Date Time Temp Pulse Resp B/P (MAP) Pulse Ox O2 Delivery O2 Flow Rate FiO2 08/29/17 07:23 107 22 99 Nasal Cannula 3.0 32 08/29/17 07:17 106 20 98 Nasal Cannula 3.0 32 08/29/17 07:17 98 Nasal Cannula 3.0 32 08/29/17 07:17 Nasal Cannula 3.0 32 08/29/17 04:00 98.0 103 20 122/69 98 Nasal Cannula 2.0 98.0 08/29/17 04:00 102 08/29/17 01:12 101 20 99 Nasal Cannula 3.0 32 08/29/17 01:02 95 23 97 Nasal Cannula 3.0 32 08/29/17 00:00 99 08/29/17 00:00 98.0 102 20 142/63 96 Nasal Cannula 2.0 98.0 08/28/17 20:51 98.5 109 41 105/57 90 Nasal Cannula 3.0 98.5 08/28/17 20:00 104 08/28/17 19:10 94 Nasal Cannula 3.0 08/28/17 18:56 104 23 99 Nasal Cannula 3.0 32 08/28/17 18:46 103 21 100 Nasal Cannula 3.0 32 08/28/17 18:45 100 Nasal Cannula 3.0 32 08/28/17 18:45 Nasal Cannula 3.0 32 08/28/17 16:35 106 20 92 08/28/17 15:42 98.1 103 26 136/80 90 Nasal Cannula 4.5 98.1 08/28/17 14:52 97 18 95 08/28/17 12:38 Nasal Cannula 4.0 36 08/28/17 12:37 108 20 95 Nasal Cannula 4.0 36 08/28/17 12:12 96.8 99 24 126/78 96 Nasal Cannula 3.0 96.8 08/28/17 12:00 100 08/28/17 11:50 104 18 94 Intake and Output 08/28/17 08/29/17 19:00 07:00 Intake Total 560 ml 360 ml Output Total 550 ml Balance 10 ml 360 ml Intake Oral 360 ml 240 ml IV Total 200 ml 120 ml Output Urine Total 550 ml # Voids 3 5 General Appearance: cachetic HEENT: normocephalic, atraumatic, anicteric, mucous membranes moist Respiratory/Chest: chest wall non-tender, lungs clear, normal breath sounds, no respiratory distress, no accessory muscle use Cardiovascular: normal peripheral pulses, normal rate, regular rhythm Abdomen: normal bowel sounds, soft, non tender, no organomegaly, non distended , no mass Extremities: no cyanosis, no clubbing, no edema Microbiology Date/Time Source Procedure Growth Status 08/27/17 09:00 Urine,Clean Catch Urine Culture - Final Escherichia Coli Complete Laboratory Tests 08/28/17 10:55: Troponin I 0.020 08/29/17 03:56: White Blood Count 5.3, Red Blood Count 5.55H, Hemoglobin 9.4L, Hematocrit 37.3, Mean Corpuscular Volume 67L, Mean Corpuscular Hemoglobin 16.9L, Mean Corpuscular Hemoglobin Concent 25.1L, Red Cell Distribution Width 21.0H, Platelet Count 364, Mean Platelet Volume 5.2L, Neutrophils (%) (Auto) 58.8, Lymphocytes (%) (Auto) 20.3, Monocytes (%) (Auto) 17.3H, Eosinophils (%) (Auto) 1.2, Basophils (%) (Auto) 2.4H, Sodium Level 145, Potassium Level 3.8, Chloride Level 102, Carbon Dioxide Level 39H, Anion Gap 4L, Blood Urea Nitrogen 8, Creatinine 0.6, Estimat Glomerular Filtration Rate > 60, Glucose Level 100, Calcium Level 8.3L Current Medications Medications (Trade) Dose Ordered Sig/Natividad Route PRN Reason Start Time Stop Time Status Last Admin Dose Admin Acetaminophen (Tylenol) 650 mg Q4H PRN ORAL Mild Pain/Temp > 100.5 08/26/17 15:30 09/25/17 15:29 Albuterol/ Ipratropium (Albuterol/ Ipratropium) 3 ml Q4H PRN HHN Shortness of Breath 08/27/17 11:00 09/01/17 10:59 Albuterol/ Ipratropium (Albuterol/ Ipratropium) 3 ml Q6HRT HHN 08/27/17 13:00 09/01/17 12:59 08/29/17 08:05 Cephalexin (Keflex) 500 mg BID ORAL 08/28/17 18:00 09/04/17 17:59 08/28/17 18:52 Cyanocobalamin (Vitamin B12) 1,000 mcg Q24H SUBQ 08/28/17 20:00 08/30/17 20:01 08/28/17 21:02 Dextrose (Dextrose 50%) 25 ml STAT PRN IV Hypoglycemia 08/28/17 16:15 09/27/17 16:14 Dextrose (Dextrose 50%) 50 ml STAT PRN IV Hypoglycemia 08/28/17 16:15 09/27/17 16:14 Diazepam (Valium) 5 mg EVERY 4 HOURS PRN ORAL For Anxiety 08/27/17 22:30 09/03/17 22:29 Folic Acid (Folate) 1 mg DAILY ORAL 08/28/17 09:00 09/27/17 08:59 08/28/17 10:05 Furosemide (Lasix) 20 mg DAILY IV 08/28/17 09:00 09/27/17 08:59 08/28/17 10:05 Haloperidol Lactate (Haldol) 5 mg Q6H PRN IM Agitation 08/27/17 21:45 09/26/17 21:44 Heparin Sodium (Porcine) (Heparin 5000 units/ml) 5,000 units EVERY 12 HOURS SUBQ 08/26/17 21:00 09/25/17 20:59 08/28/17 21:03 Insulin Aspart (NovoLOG) BEFORE MEALS AND HS SUBQ 08/28/17 17:00 09/27/17 16:59 08/29/17 06:37 Iron Sucrose 100 mg/Sodium Chloride 115 ml @ 460 mls/hr BEDTIME IV 08/29/17 21:00 09/28/17 20:59 Iron Sucrose 200 mg/Sodium Chloride 120 ml @ 240 mls/hr ONCE IV 08/28/17 21:00 08/29/17 22:00 08/28/17 21:25 Lansoprazole (Prevacid) 30 mg BID ORAL 08/27/17 18:00 09/26/17 17:59 08/28/17 18:52 Multivitamins (Multivitamins) 1 tab DAILY ORAL 08/28/17 09:00 09/27/17 08:59 08/28/17 10:05 Ondansetron HCl (Zofran) 4 mg Q6H PRN IVP Nausea & Vomiting 08/26/17 15:30 09/25/17 15:29 Salmeterol Xinafoate/ Fluticasone (Advair 250/50 Diskus) 1 puffs BID INH 08/27/17 18:00 09/26/17 17:59 08/28/17 18:45 Thiamine HCl (Vitamin B1) 100 mg DAILY ORAL 08/28/17 09:00 09/27/17 08:59 08/28/17 10:05 Tiotropium [place] (Spiriva Inhaler) 1 puff DAILY INH 08/28/17 09:00 09/27/17 08:59 08/28/17 08:42 Guevara Ayon MD Aug 29, 2017 08:51
[2017-08-29] MEDS ORDERED: Gastrograffin 30ml RECTAL PRN ×2 (09:00→16:45)
[2017-08-29] MEDS ORDERED: Gastrograffin 30ml ORAL PRN ×2 (09:00→16:45)
[2017-08-29] MEDS: Thiamine 100mg tab ORAL SCH (09:14)
[2017-08-29] MEDS: Cephalexin 500mg cap ORAL SCH (09:14)
[2017-08-29] MEDS: Heparin 5000 units/ml inj SUBQ SCH ×2 (09:16→21:00)
[2017-08-29 10:00] VITALS: BP 130/72
--- NOTE | 2017-08-29 10:29 | Nephrology Progress Note ---
Assessment/Plan Problem List: (1) Hypoalbuminemia (2) Anemia (3) Failure to thrive (4) Pulmonary hypertension (5) Proteinuria Assessment Low MCV Anemia, low Iron Failure to Thrive h/o ETOH abuse Pulmonary HTN Mild Hypernatremia HypoAlbuminemia Proteinuria Tachycardia h/o Smoking Plan IV Iron Mag and Phos supplement 24 h urine protein, pending gastric support per consultants Subjective ROS Limited/Unobtainable: No Constitutional: Reports: malaise Objective Objective Last 24 Hour Vital Signs Date Time Temp Pulse Resp B/P (MAP) Pulse Ox O2 Delivery O2 Flow Rate FiO2 08/29/17 07:23 107 22 99 Nasal Cannula 3.0 32 08/29/17 07:17 106 20 98 Nasal Cannula 3.0 32 08/29/17 07:17 98 Nasal Cannula 3.0 32 08/29/17 07:17 Nasal Cannula 3.0 32 08/29/17 04:00 98.0 103 20 122/69 98 Nasal Cannula 2.0 98.0 08/29/17 04:00 102 08/29/17 01:12 101 20 99 Nasal Cannula 3.0 32 08/29/17 01:02 95 23 97 Nasal Cannula 3.0 32 08/29/17 00:00 99 08/29/17 00:00 98.0 102 20 142/63 96 Nasal Cannula 2.0 98.0 08/28/17 20:51 98.5 109 41 105/57 90 Nasal Cannula 3.0 98.5 08/28/17 20:00 104 08/28/17 19:10 94 Nasal Cannula 3.0 08/28/17 18:56 104 23 99 Nasal Cannula 3.0 32 08/28/17 18:46 103 21 100 Nasal Cannula 3.0 32 08/28/17 18:45 100 Nasal Cannula 3.0 32 08/28/17 18:45 Nasal Cannula 3.0 32 08/28/17 16:35 106 20 92 08/28/17 15:42 98.1 103 26 136/80 90 Nasal Cannula 4.5 98.1 08/28/17 14:52 97 18 95 08/28/17 12:38 Nasal Cannula 4.0 36 08/28/17 12:37 108 20 95 Nasal Cannula 4.0 36 08/28/17 12:12 96.8 99 24 126/78 96 Nasal Cannula 3.0 96.8 08/28/17 12:00 100 08/28/17 11:50 104 18 94 Intake and Output 08/28/17 08/29/17 19:00 07:00 Intake Total 560 ml 360 ml Output Total 550 ml Balance 10 ml 360 ml Intake Oral 360 ml 240 ml IV Total 200 ml 120 ml Output Urine Total 550 ml # Voids 3 5 Laboratory Tests 08/28/17 10:55: Troponin I 0.020 08/29/17 03:56: White Blood Count 5.3, Red Blood Count 5.55H, Hemoglobin 9.4L, Hematocrit 37.3, Mean Corpuscular Volume 67L, Mean Corpuscular Hemoglobin 16.9L, Mean Corpuscular Hemoglobin Concent 25.1L, Red Cell Distribution Width 21.0H, Platelet Count 364, Mean Platelet Volume 5.2L, Neutrophils (%) (Auto) 58.8, Lymphocytes (%) (Auto) 20.3, Monocytes (%) (Auto) 17.3H, Eosinophils (%) (Auto) 1.2, Basophils (%) (Auto) 2.4H, Sodium Level 145, Potassium Level 3.8, Chloride Level 102, Carbon Dioxide Level 39H, Anion Gap 4L, Blood Urea Nitrogen 8, Creatinine 0.6, Estimat Glomerular Filtration Rate > 60, Glucose Level 100, Calcium Level 8.3L Height (Feet): 5 Height (Inches): 11.00 Weight (Pounds): 170 General Appearance: no apparent distress Objective no change COURTNEY BARBOZA Aug 29, 2017 10:29
[2017-08-29] MEDS: Advair 250/50 Inhaler - 14 dose INH SCH ×2 (10:55→19:41)
[2017-08-29 12:00] VITALS: BP 153/70
--- NOTE | 2017-08-29 12:27 | Neurology Progress Note ---
Interim History Interim History Interim History Ms. Reina feels a little better. The mind is clearer. She feels a little stronger. She stood up and took a few steps today. She continues to be cognitively impoverished. She denies any new problems. She denies any new neurologic symptoms. Review of Systems Neuro Review of Systems Benign. Objective Physical Exam Last Vital Signs Date Time Temp Pulse Resp B/P (MAP) Pulse Ox O2 Delivery O2 Flow Rate FiO2 08/29/17 10:00 98.2 104 20 130/72 96 Nasal Cannula 5.0 98.2 08/29/17 07:23 32 Laboratory Tests Test 08/29/17 03:56 White Blood Count 5.3 K/UL (4.8-10.8) Red Blood Count 5.55 M/UL (4.20-5.40) H Hemoglobin 9.4 G/DL (12.0-16.0) L Hematocrit 37.3 % (37.0-47.0) Mean Corpuscular Volume 67 FL (80-99) L Mean Corpuscular Hemoglobin 16.9 PG (27.0-31.0) L Mean Corpuscular Hemoglobin Concent 25.1 G/DL (32.0-36.0) L Red Cell Distribution Width 21.0 % (11.6-14.8) H Platelet Count 364 K/UL (150-450) Mean Platelet Volume 5.2 FL (6.5-10.1) L Neutrophils (%) (Auto) 58.8 % (45.0-75.0) Lymphocytes (%) (Auto) 20.3 % (20.0-45.0) Monocytes (%) (Auto) 17.3 % (1.0-10.0) H Eosinophils (%) (Auto) 1.2 % (0.0-3.0) Basophils (%) (Auto) 2.4 % (0.0-2.0) H Sodium Level 145 MMOL/L (136-145) Potassium Level 3.8 MMOL/L (3.5-5.1) Chloride Level 102 MMOL/L (98-107) Carbon Dioxide Level 39 MMOL/L (21-32) H Anion Gap 4 mmol/L (5-15) L Blood Urea Nitrogen 8 mg/dL (7-18) Creatinine 0.6 MG/DL (0.55-1.30) Estimat Glomerular Filtration Rate > 60 mL/min (>60) Glucose Level 100 MG/DL (74-106) Calcium Level 8.3 MG/DL (8.5-10.1) L Neurologic Exam Objective PHYSICAL EXAMINATION: GENERAL: She is a well-developed, relatively well-nourished black lady, lying in bed, in no acute distress. HEAD: Normocephalic and atraumatic. EENT: Examination benign. NECK: No neck rigidity was observed. NEUROLOGICAL EXAMINATION: MENTAL STATUS EXAMINATION: She was awake and alert. She was oriented to [facility], [facility] and August 29. She did not know the year. She was able to recall 3/3 words immediately but could only remember 1/3 in 1 and 3 minutes. She was able to remember presidents Trump and Obama only with hints. Her mathematical skills were impaired. Her visuospatial function was relatively good. SPEECH: She had a mild dysarthria. LANGUAGE: She had an anomia for low frequency words. CRANIAL NERVE EXAMINATION: II: The visual melara were intact on confrontation. III, IV & : The external ocular movements were full and the pupils were 3 mm in diameter and reactive sluggishly to light. V: She had normal facial sensations and the temporales, masseters and pterygoids functioned normally. VII: She had normal facial expressions and no facial asymmetry. VIII: She was able to hear well and had no nystagmus. IX: The palate moved symmetrically on phonation. X: She had no hoarseness of voice. XI: The sternocleidomastoids and trapezii functioned normally. XII: The tongue was in the midline. MOTOR SYSTEM: The tone was normal in all four extremities. Examination of muscle mass revealed no focal wasting. Examination of power revealed G 5/5 power except for G 4++/5 in the iliopsoas muscle bilaterally. SENSORY EXAMINATION: She had intact sensations to pin prick, light touch and graphesthesia. Position sense was diminished in the toes bilaterally. REFLEXES: 0 at the biceps, triceps, brachioradialis, knees, and ankles. The plantar responses were mute bilaterally. COORDINATION: She performed well on [id number] and [id number] testing. STANCE: She stood up with contact guard. GAIT: She walked well with contact guard, with a wide based gait. ABNORMAL MOVEMENTS: Asterixis: G 0/4 Impression/Recommendations Diagnostic Impression 1. Ms. Latoya Reina is a 62-year-old, right-handed, black lady, who does have past history of multiple medical problems including bipolar affective disorder, chronic obstructive pulmonary disease, obstructive sleep apnea, mixed pulmonary hypertension, diastolic dysfunction, iron deficiency anemia, alcohol abuse, and tobacco abuse, who was hospitalized for failure to thrive at home and an altered mental state. 2. On 08/27/17 she had a period of agitation for which she was given Ativan. Following that she became unresponsive. ABGs revealed that she was severely hypercapneic and hypoxemic. Those problems were corrected and she is brighter today. 3. She feels a little better. The mind is clearer. She feels a little stronger. She stood up and took a few steps today. She continues to be cognitively impoverished. She denies any new problems. She denies any new neurologic symptoms. 4. On neurological examination, at this time, she does have problems with orientation, recent and remote memory, higher cognitive function and language - however her cognitive function is improving. She also has proximal lower extremity weakness, decreased position sense in the toes bilaterally, inability to perform Romberg test, globally absent deep tendon reflexes, a wide based stance and a wide based unsteady gait. 5. Laboratory data noted on my initial evaluation revealed an anemia with a hemoglobin of 9.1 G. The arterial blood gas performed on 08/26/2017, revealed that she was retaining carbon dioxide with pCO2 of 60.8 and was hypoxemic with a pO2 of 43 with pH of 7.38. The chemistry panel revealed that her sodium was elevated to 147, chloride elevated to 108, CO2 elevated to 39, glucose elevated to 108, her BNP was elevated to 672, and TSH was normal at 1.18. Her urinalysis revealed 2-4 RBCs and 0-2 WBCs per high-power field with negative leukocyte esterase. 6. Laboratory data obtained yesterday revealed a pCO2 elevated at 93, a pO2 down at 63, pH down to 7.25, HB down at 8.7 G and a low Vitamin B 12 at [address] scan of the brain without contrast performed on 08/26/2017, revealed mild atrophy and some deep white matter changes, but no acute pathology. 8. The patient's history and neurological examination are most compatible with, a significant toxic/metabolic encephalopathy which is now improving. 9. She says that people have told her that she is getting demented. In the presence of an ongoing encephalopathy one cannot make a diagnosis of dementia. Recommendations 1. Continue present management. 2. Vitamin B12 - 1000 mcg SC daily x 3 and then monthly. 3. All mind-altering drugs should be held. 4. EEG to evaluate degree and type of encephalopathy. 5. Mobilize with PT. 6. Observe closely. Samuel Tracy M.D., M.S.P.Carlos. SAMUEL TRACY Aug 29, 2017 12:27
--- NOTE | 2017-08-29 13:19 | Cardiology Progress Note ---
Assessment/Plan Status: stable, progressing Assessment/Plan Hypoxemia/Dyspnea COPD Sleep Apnea Mixed pulmonary hypertension Diastolic dysfunction Bipolar disease Iron deficiency anemia Extensive alcohol and smoking use -Continue pulmonary toilet -BiPAP prn -No indication for RHC, PAH is multifactorial Group II/III -No indication for stress testing at this time -Echo reviewed, no significant changes to prior in June -Presentation not consistent with PE, prior work up negative -Mild IV hydration for RV function depression and hyperdyanmic systolic function but caution due to elevated filling pressures and pulmonary congestion , avoid vasodilators/nitro if possible, no indication for dobutamine - BP stable -Spot dose lasix -thoracentesis evaluation for right sided effusion Subjective Cardiovascular: Reports: no symptoms Respiratory: Reports: no symptoms Gastrointestinal/Abdominal: Reports: no symptoms Genitourinary: Reports: no symptoms Subjective No acute events, mild tachycardia, vitals otherwise stable. on 2-3 liters oxygen , CXR with right effusion. Patient alert and walked a few steps Objective Last 24 Hour Vital Signs Date Time Temp Pulse Resp B/P (MAP) Pulse Ox O2 Delivery O2 Flow Rate FiO2 08/29/17 10:00 98.2 104 20 130/72 96 Nasal Cannula 5.0 98.2 08/29/17 08:00 104 08/29/17 07:23 107 22 99 Nasal Cannula 3.0 32 08/29/17 07:17 106 20 98 Nasal Cannula 3.0 32 08/29/17 07:17 98 Nasal Cannula 3.0 32 08/29/17 07:17 Nasal Cannula 3.0 32 08/29/17 04:00 98.0 103 20 122/69 98 Nasal Cannula 2.0 98.0 08/29/17 04:00 102 08/29/17 01:12 101 20 99 Nasal Cannula 3.0 32 08/29/17 01:02 95 23 97 Nasal Cannula 3.0 32 08/29/17 00:00 99 08/29/17 00:00 98.0 102 20 142/63 96 Nasal Cannula 2.0 98.0 08/28/17 20:51 98.5 109 41 105/57 90 Nasal Cannula 3.0 98.5 08/28/17 20:00 104 08/28/17 19:10 94 Nasal Cannula 3.0 08/28/17 18:56 104 23 99 Nasal Cannula 3.0 32 08/28/17 18:46 103 21 100 Nasal Cannula 3.0 32 08/28/17 18:45 100 Nasal Cannula 3.0 32 08/28/17 18:45 Nasal Cannula 3.0 32 08/28/17 16:35 106 20 92 08/28/17 15:42 98.1 103 26 136/80 90 Nasal Cannula 4.5 98.1 08/28/17 14:52 97 18 95 General Appearance: no apparent distress, moderate distress EENT: PERRL/EOMI Neck: non-tender Rhythm: NSR Cardiovascular: normal peripheral pulses Respiratory/Chest: chest wall non-tender Abdomen: normal bowel sounds Extremities: normal range of motion Neurologic: shoe cutter II-XII grossly normal Intake and Output 08/28/17 08/29/17 19:00 07:00 Intake Total 560 ml 360 ml Output Total 550 ml Balance 10 ml 360 ml Intake Oral 360 ml 240 ml IV Total 200 ml 120 ml Output Urine Total 550 ml # Voids 3 5 Laboratory Tests Test 08/29/17 03:56 White Blood Count 5.3 K/UL (4.8-10.8) Red Blood Count 5.55 M/UL (4.20-5.40) H Hemoglobin 9.4 G/DL (12.0-16.0) L Hematocrit 37.3 % (37.0-47.0) Mean Corpuscular Volume 67 FL (80-99) L Mean Corpuscular Hemoglobin 16.9 PG (27.0-31.0) L Mean Corpuscular Hemoglobin Concent 25.1 G/DL (32.0-36.0) L Red Cell Distribution Width 21.0 % (11.6-14.8) H Platelet Count 364 K/UL (150-450) Mean Platelet Volume 5.2 FL (6.5-10.1) L Neutrophils (%) (Auto) 58.8 % (45.0-75.0) Lymphocytes (%) (Auto) 20.3 % (20.0-45.0) Monocytes (%) (Auto) 17.3 % (1.0-10.0) H Eosinophils (%) (Auto) 1.2 % (0.0-3.0) Basophils (%) (Auto) 2.4 % (0.0-2.0) H Sodium Level 145 MMOL/L (136-145) Potassium Level 3.8 MMOL/L (3.5-5.1) Chloride Level 102 MMOL/L (98-107) Carbon Dioxide Level 39 MMOL/L (21-32) H Anion Gap 4 mmol/L (5-15) L Blood Urea Nitrogen 8 mg/dL (7-18) Creatinine 0.6 MG/DL (0.55-1.30) Estimat Glomerular Filtration Rate > 60 mL/min (>60) Glucose Level 100 MG/DL (74-106) Calcium Level 8.3 MG/DL (8.5-10.1) L Microbiology Date/Time Source Procedure Growth Status 08/27/17 09:00 Urine,Clean Catch Urine Culture - Final Escherichia Coli Complete FilsoRobbin tabares M.D. Aug 29, 2017 13:19
--- NOTE | 2017-08-29 15:47 | General Progress Note ---
Assessment/Plan Problem List: (1) COPD (chronic obstructive pulmonary disease) ICD Codes: J44.9 - Chronic obstructive pulmonary disease, unspecified SNOMED: 89277413 (2) H/O tobacco use, presenting hazards to health ICD Codes: Z87.891 - Personal history of nicotine dependence SNOMED: 8613422858956 (3) Anemia ICD Codes: D64.9 - Anemia, unspecified SNOMED: 576213012 (4) Alcohol abuse ICD Codes: F10.10 - Alcohol abuse, uncomplicated SNOMED: 62792144 (5) Noncompliance ICD Codes: Z91.19 - Patient's noncompliance with other medical treatment and regimen SNOMED: 0373775 (6) Bipolar disorder ICD Codes: F31.9 - Bipolar disorder, unspecified SNOMED: 45081417 (7) Acute respiratory failure with hypoxia ICD Codes: J96.01 - Acute respiratory failure with hypoxia SNOMED: 42812687, 979038258 (8) Failure to thrive SNOMED: 17442312 (9) Altered mental state ICD Codes: R41.82 - Altered mental status, unspecified SNOMED: 088645495 (10) FTT (failure to thrive) in adult ICD Codes: R62.7 - Adult failure to thrive SNOMED: 970432321 (11) UTI (urinary tract infection) ICD Codes: N39.0 - Urinary tract infection, site not specified SNOMED: 16026054 (12) Hypomagnesemia ICD Codes: E83.42 - Hypomagnesemia SNOMED: 670100944 (13) Diastolic CHF ICD Codes: I50.30 - Unspecified diastolic (congestive) heart failure SNOMED: 32503417, 535112634 Status: stable Assessment/Plan - Cardiology, nephrology, neurology, pulmonology, psychiatry consulted #Acute encephalopathy - CT head negative for acute pathology. Check RPR, vitamin B12, folate, TSH, UA to r/o metabolic etiology for AMS. Now improved. - pending EEG - apprec neuro rec's #Chronic diastolic CHF - ECHO with 60% EF with diastolic dysfunction noted and mild PAH - CXR with small bilateral pleural effusion - EKG/trend trop--unremarkable - BNP 722 - SPOT DOSE LASIX - monitor I&O - no indication for RHC at this time - apprec cards rec's #UTI - UA with positive nitrites. F/u urine cx -- E.coli. - change keflex to macrobid #Acute respiratory failure may be 2/2 COPD exacerbation vs. CHF exacerbation - pulmonary toilet. titrate FiO2 down for O2 sats to be greater than 90% - duonebs ATC and prn - Advair and spiriva - apprec pulm rec's #Alcohol abuse - multivitamin, folate, thiamine daily - encourage compliance and alcohol cessation #Vitamin B12 deficiency - vitamin B12 SC injections #FTT - check prealbumin/albumin - nutrition consult #Bipolar d/o - psychiatry consulted - continue to reduce mind altering meds at this time given acute AMS #Electrolyte imbalance - replete Mg with 1g MgSO4 today - monitor BMP and Mg DVT Prophylaxis: SCD, HSQ Code Status: Full Hospital Classification Declaration: Based on this initial evaluation, and depending on the patient's clinical course, I anticipate that this patient will require hospitalization for 2-3 days for acute on chronic CHF exacerbation and close respiratory/hemodynamic monitoring. Disposition: Once the patient is stable to leave the hospital, I anticipate the patient will likely be discharged to the following environment: home with HH vs SNF I spent 32 minutes on this patient's case, and 20 minutes were dedicated to counseling and/or care coordination. Discussed with patient/family, nursing staff, SW/CM, pulmonology, cardiology, neurology regarding clinical status, treatment course, and disposition planning. Time of note may not reflect time of encounter. Subjective Date patient seen: Aug 29, 2017 Time patient seen: 15:36 Allergies: Coded Allergies: CODEINE (Verified Allergy, Intermediate, Itchy, 08/26/17) Subjective - no acute events overnight - pending EEG - no cp, sob Objective Last 24 Hour Vital Signs Date Time Temp Pulse Resp B/P (MAP) Pulse Ox O2 Delivery O2 Flow Rate FiO2 08/29/17 13:19 102 22 100 Nasal Cannula 3.0 32 08/29/17 13:11 98 20 99 Nasal Cannula 3.0 32 08/29/17 12:00 104 08/29/17 10:00 98.2 104 20 130/72 96 Nasal Cannula 5.0 98.2 08/29/17 08:00 104 08/29/17 07:23 107 22 99 Nasal Cannula 3.0 32 08/29/17 07:17 106 20 98 Nasal Cannula 3.0 32 08/29/17 07:17 98 Nasal Cannula 3.0 32 08/29/17 07:17 Nasal Cannula 3.0 32 08/29/17 04:00 98.0 103 20 122/69 98 Nasal Cannula 2.0 98.0 08/29/17 04:00 102 08/29/17 01:12 101 20 99 Nasal Cannula 3.0 32 08/29/17 01:02 95 23 97 Nasal Cannula 3.0 32 08/29/17 00:00 99 08/29/17 00:00 98.0 102 20 142/63 96 Nasal Cannula 2.0 98.0 08/28/17 20:51 98.5 109 41 105/57 90 Nasal Cannula 3.0 98.5 08/28/17 20:00 104 08/28/17 19:10 94 Nasal Cannula 3.0 08/28/17 18:56 104 23 99 Nasal Cannula 3.0 32 08/28/17 18:46 103 21 100 Nasal Cannula 3.0 32 08/28/17 18:45 100 Nasal Cannula 3.0 32 08/28/17 18:45 Nasal Cannula 3.0 32 08/28/17 16:35 106 20 92 08/28/17 15:42 98.1 103 26 136/80 90 Nasal Cannula 4.5 98.1 Intake and Output 08/28/17 08/29/17 19:00 07:00 Intake Total 560 ml 360 ml Output Total 550 ml Balance 10 ml 360 ml Intake Oral 360 ml 240 ml IV Total 200 ml 120 ml Output Urine Total 550 ml # Voids 3 5 Laboratory Tests 08/29/17 03:56: White Blood Count 5.3, Red Blood Count 5.55H, Hemoglobin 9.4L, Hematocrit 37.3, Mean Corpuscular Volume 67L, Mean Corpuscular Hemoglobin 16.9L, Mean Corpuscular Hemoglobin Concent 25.1L, Red Cell Distribution Width 21.0H, Platelet Count 364, Mean Platelet Volume 5.2L, Neutrophils (%) (Auto) 58.8, Lymphocytes (%) (Auto) 20.3, Monocytes (%) (Auto) 17.3H, Eosinophils (%) (Auto) 1.2, Basophils (%) (Auto) 2.4H, Sodium Level 145, Potassium Level 3.8, Chloride Level 102, Carbon Dioxide Level 39H, Anion Gap 4L, Blood Urea Nitrogen 8, Creatinine 0.6, Estimat Glomerular Filtration Rate > 60, Glucose Level 100, Calcium Level 8.3L Height (Feet): 5 Height (Inches): 11.00 Weight (Pounds): 170 General Appearance: no apparent distress, alert, thin EENT: PERRL/EOMI, normal ENT inspection Neck: non-tender, normal alignment, supple Cardiovascular: normal peripheral pulses, normal rate, regular rhythm Respiratory/Chest: chest wall non-tender, lungs clear, normal breath sounds Abdomen: normal bowel sounds, non tender, soft Extremities: normal range of motion, non-tender Edema: moderate edema 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
[2017-08-29 16:15] VITALS: BP 115/57
[2017-08-29] MEDS ORDERED: Albuterol/Ipratropium 3ml neb HHN PRN (17:00)
[2017-08-29] MEDS ORDERED: Haloperidol 5mg/ml Inj IM PRN (17:00)
--- NOTE | 2017-08-29 17:24 | Diagnostic Imaging Report ---
INDICATION: Failure to thrive, COPD, congestive heart failure, acute respiratory failure with hypoxia, urinary tract infection, anemia TECHNIQUE: No IV contrast, per referring physician request. Patient ingested oral contrast Spiral acquisitions obtained through the chest, abdomen, and pelvis Multiplanar reconstructions were generated. Total dose length product 897.27 mGycm. CTDIvol(s) 12.84 mGy. Radiation dose was minimized using automated exposure control COMPARISON: none FINDINGS Chest: There are bilateral pleural effusions, [id number] on the right, small on the left. There is atelectasis and consolidation of much of both lower lobes. Air bronchograms within the consolidated segments are somewhat bronchiectatic, indicating there could be a chronic fibrotic component. Scattered areas of atelectasis are seen in the posterior right upper lobe and within the right middle lobe as well as within the inferior lingula. Peripheral reticular interstitial opacities are seen in the left upper lobe. The heart is borderline enlarged. There is minimal pericardial thickening versus fluid. The main pulmonary artery is dilated, measuring 4 cm in diameter and is larger in caliber than the ascending thoracic aorta. The left main pulmonary artery is also dilated, measuring 3.5 cm. Rather numerous but not frankly enlarged mediastinal nodes are demonstrated. Rather numerous but not frankly enlarged supraclavicular nodes are noted bilaterally. No axillary or chest wall mass or adenopathy. The bones are unremarkable. Abdomen pelvis: There is generalized edema of the bilateral flank, hip, and buttock and anterior pelvic wall subcutaneous fat. There is also edema of the presacral fat. There is considerable colonic diverticulosis and evidence of proximal sigmoid wall thickening. No evidence of perisigmoid inflammatory change. The appendix is normal. Ingested oral contrast is seen through most but not all of the small bowel. No small bowel distention. No definite small bowel wall thickening. No free or loculated intraperitoneal air or fluid is evident. Lack of IV contrast limits assessment of the solid organs. The liver demonstrates a bilobed 3 cm cyst centrally. There is a 1 cm cyst in segment 8. No other focal hepatic abnormality. The pancreas, spleen, adrenals, kidneys are all unremarkable. Abundant but not frankly enlarged retroperitoneal nodes and pelvic nodes are noted. No pelvic mass or adenopathy. No retroperitoneal or mesenteric mass or adenopathy. Uterus contains a calcification consistent with old degenerated fibroid. The bladder is unremarkable. The bones demonstrate degenerative changes of the lumbosacral junction as well as degenerative lumbar facet arthrosis. IMPRESSION: Bilateral pleural effusions, [id number] on the right, small on the left Atelectasis and consolidation of much of both lower lobes. What may be bronchiectatic air bronchograms suggest that a component of this may represent chronic fibrosis Nonspecific subpleural interstitial opacities in the periphery of the left upper lobe. Dilated main and left main pulmonary arteries, consistent with pulmonary arterial hypertension Borderline cardiomegaly Minimal pericardial thickening versus fluid Generalized edema of the bilateral hip, flank, buttock and anterior pelvic wall subcutaneous fat as well as of the presacral fat Extensive colonic diverticulosis. Proximal sigmoid wall thickening probably represents circular muscle hypertrophy related to such. No evidence of diverticulitis Other findings as noted, including degenerative spondylosis, old degenerated uterine fibroid, liver cysts The CT scanner at [facility] is accredited by the [employer] and the scans are performed using protocols designed to limit radiation exposure to as low as reasonably achievable to attain images of sufficient resolution adequate for diagnostic evaluation.
[2017-08-29 20:00] VITALS: BP 117/75
[2017-08-29] MEDS ORDERED: Cephalexin 500mg cap ORAL SCH (21:00)
[2017-08-29] MEDS ORDERED: Iron Sucrose 100 MG in NS 110 ML IV SCH (21:00)
[2017-08-29] MEDS: Iron Sucrose 100 MG in NS 110 ML IV SCH (21:22)
[2017-08-29] MEDS: Vitamin B12 1000mcg/ml Inj SUBQ SCH (21:25)
--- NOTE | 2017-08-29 23:20 | General Progress Note ---
Assessment/Plan Assessment/Plan encephalopathy bipolar agitation alcohol Haldol prn thiamin folate Subjective Date patient seen: Aug 29, 2017 Neurologic/Psychiatric: Reports: anxiety, depressed, emotional problems Allergies: Coded Allergies: CODEINE (Verified Allergy, Intermediate, Itchy, 08/26/17) Subjective the pt is doing better calmer. Objective Last 24 Hour Vital Signs Date Time Temp Pulse Resp B/P (MAP) Pulse Ox O2 Delivery O2 Flow Rate FiO2 08/29/17 20:00 98.1 104 20 117/75 95 98.1 08/29/17 19:41 101 16 100 Nasal Cannula 3.0 32 08/29/17 19:33 Nasal Cannula 3.0 32 08/29/17 19:33 107 20 98 Nasal Cannula 3.0 32 08/29/17 19:32 98 Nasal Cannula 3.0 32 08/29/17 16:15 97.3 106 21 115/57 95 Nasal Cannula 5.0 97.3 08/29/17 16:15 104 08/29/17 13:19 102 22 100 Nasal Cannula 3.0 32 08/29/17 13:11 98 20 99 Nasal Cannula 3.0 32 08/29/17 12:00 104 08/29/17 10:00 98.2 104 20 130/72 96 Nasal Cannula 5.0 98.2 08/29/17 08:00 104 08/29/17 07:23 107 22 99 Nasal Cannula 3.0 32 08/29/17 07:17 106 20 98 Nasal Cannula 3.0 32 08/29/17 07:17 98 Nasal Cannula 3.0 32 08/29/17 07:17 Nasal Cannula 3.0 32 08/29/17 04:00 98.0 103 20 122/69 98 Nasal Cannula 2.0 98.0 08/29/17 04:00 102 08/29/17 01:12 101 20 99 Nasal Cannula 3.0 32 08/29/17 01:02 95 23 97 Nasal Cannula 3.0 32 08/29/17 00:00 99 08/29/17 00:00 98.0 102 20 142/63 96 Nasal Cannula 2.0 98.0 Intake and Output 08/28/17 08/29/17 19:00 07:00 Intake Total 560 ml 360 ml Output Total 550 ml Balance 10 ml 360 ml Intake Oral 360 ml 240 ml IV Total 200 ml 120 ml Output Urine Total 550 ml # Voids 3 5 Laboratory Tests 08/29/17 03:56: White Blood Count 5.3, Red Blood Count 5.55H, Hemoglobin 9.4L, Hematocrit 37.3, Mean Corpuscular Volume 67L, Mean Corpuscular Hemoglobin 16.9L, Mean Corpuscular Hemoglobin Concent 25.1L, Red Cell Distribution Width 21.0H, Platelet Count 364, Mean Platelet Volume 5.2L, Neutrophils (%) (Auto) 58.8, Lymphocytes (%) (Auto) 20.3, Monocytes (%) (Auto) 17.3H, Eosinophils (%) (Auto) 1.2, Basophils (%) (Auto) 2.4H, Sodium Level 145, Potassium Level 3.8, Chloride Level 102, Carbon Dioxide Level 39H, Anion Gap 4L, Blood Urea Nitrogen 8, Creatinine 0.6, Estimat Glomerular Filtration Rate > 60, Glucose Level 100, Calcium Level 8.3L Height (Feet): 5 Height (Inches): 11.00 Weight (Pounds): 170 Abdullahi Zuñiga M.D. Aug 29, 2017 23:20
[2017-08-30] VITALS: BP 137/85
[2017-08-30] MEDS: Albuterol/Ipratropium 3ml neb HHN SCH ×4 (01:38→21:16)
[2017-08-30 04:00] VITALS: BP 108/69
[2017-08-30] MEDS: NovoLOG Insulin Flexpen SUBQ SCH ×4 (05:40→20:43)
[2017-08-30 07:14] LABS: BASOPHILS % (AUTO) 2.9 % (0.0-2.0); EOSINOPHILS % (AUTO) 2.1 % (0.0-3.0); HEMATOCRIT 33.4 % (37.0-47.0); HEMOGLOBIN 8.6 G/DL (12.0-16.0); LYMPHOCYTES % (AUTO) 19.8 % (20.0-45.0); MEAN CORPUSCULAR VOLUME 66 FL (80-99); MONOCYTES % (AUTO) 19.5 % (1.0-10.0); NEUTROPHILS % (AUTO) 55.9 % (45.0-75.0); PLATELET COUNT 347 K/UL (150-450); RED BLOOD COUNT 5.06 M/UL (4.20-5.40); RED CELL DISTRIBUTION WIDTH 20.2 % (11.6-14.8); WHITE BLOOD COUNT 5.3 K/UL (4.8-10.8)
[2017-08-30 07:17] LABS: ANION GAP 1 mmol/L (5-15); BLOOD UREA NITROGEN 9 mg/dL (7-18); CARBON DIOXIDE 40 MMOL/L (21-32); CHLORIDE 102 MMOL/L (98-107); CREATININE 0.5 MG/DL (0.55-1.30); POTASSIUM 4.7 MMOL/L (3.5-5.1); SODIUM 143 MMOL/L (136-145)
[2017-08-30 08:00] VITALS: BP 128/72
[2017-08-30] MEDS: Thiamine 100mg tab ORAL SCH (08:43)
[2017-08-30] MEDS: Heparin 5000 units/ml inj SUBQ SCH ×2 (08:45→20:42)
[2017-08-30] MEDS: Advair 250/50 Inhaler - 14 dose INH SCH ×2 (10:23→21:16)
--- NOTE | 2017-08-30 10:37 | Cardiology Progress Note ---
Assessment/Plan Status: stable Assessment/Plan Hypoxemia/Dyspnea COPD Sleep Apnea Mixed pulmonary hypertension Diastolic dysfunction Bipolar disease Iron deficiency anemia Extensive alcohol and smoking use -Continue pulmonary toilet -BiPAP prn - patient refusing -No indication for RHC, PAH is multifactorial Group II/III -No indication for stress testing at this time -Echo reviewed, no significant changes to prior in June -Presentation not consistent with PE, prior work up negative -Mild IV hydration for RV function depression and hyperdyanmic systolic function but caution due to elevated filling pressures and pulmonary congestion , avoid vasodilators/nitro if possible, no indication for dobutamine - BP stable -Spot dose lasix -Physical therapy Subjective Cardiovascular: Reports: no symptoms Respiratory: Reports: no symptoms Gastrointestinal/Abdominal: Reports: no symptoms Genitourinary: Reports: no symptoms Subjective No acute events, mild tachycardia, vitals otherwise stable. on 2-3 liters oxygen , CXR with right effusion. Patient alert, refused BiPAP overnight CT scan reviewed. Objective Last 24 Hour Vital Signs Date Time Temp Pulse Resp B/P (MAP) Pulse Ox O2 Delivery O2 Flow Rate FiO2 08/30/17 08:14 111 18 99 Nasal Cannula 3.0 32 08/30/17 08:07 109 20 94 Nasal Cannula 3.0 32 08/30/17 08:07 94 Nasal Cannula 3.0 32 08/30/17 08:07 Nasal Cannula 3.0 32 08/30/17 08:00 97.5 105 22 128/72 93 97.5 08/30/17 08:00 111 08/30/17 04:00 103 08/30/17 04:00 98.2 102 18 108/69 96 98.2 08/30/17 01:50 103 18 100 Nasal Cannula 3.0 32 08/30/17 01:38 106 20 97 Nasal Cannula 3.0 32 08/30/17 00:00 98.6 108 20 137/85 98 98.6 08/30/17 00:00 103 08/29/17 20:00 98.1 104 20 117/75 95 98.1 08/29/17 20:00 104 08/29/17 19:41 101 16 100 Nasal Cannula 3.0 32 08/29/17 19:33 Nasal Cannula 3.0 32 08/29/17 19:33 107 20 98 Nasal Cannula 3.0 32 6/15/18 19:32 98 Nasal Cannula 3.0 32 08/29/17 16:15 97.3 106 21 115/57 95 Nasal Cannula 5.0 97.3 08/29/17 16:15 104 08/29/17 13:19 102 22 100 Nasal Cannula 3.0 32 08/29/17 13:11 98 20 99 Nasal Cannula 3.0 32 08/29/17 12:00 104 General Appearance: no apparent distress EENT: PERRL/EOMI Neck: normal alignment Rhythm: ST Cardiovascular: normal peripheral pulses Respiratory/Chest: chest wall non-tender Abdomen: hyperactive bowel sounds Extremities: normal range of motion, non-tender 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 normal Intake and Output 08/29/17 08/30/17 19:00 07:00 Intake Total 120 ml 240 ml Output Total 1100 ml Balance -980 ml 240 ml Intake Oral 120 ml 240 ml Output Urine Total 1100 ml # Voids 2 6 Laboratory Tests Test 08/30/17 06:00 White Blood Count 5.3 K/UL (4.8-10.8) Red Blood Count 5.06 M/UL (4.20-5.40) Hemoglobin 8.6 G/DL (12.0-16.0) L Hematocrit 33.4 % (37.0-47.0) L Mean Corpuscular Volume 66 FL (80-99) L Mean Corpuscular Hemoglobin 17.0 PG (27.0-31.0) L Mean Corpuscular Hemoglobin Concent 25.8 G/DL (32.0-36.0) L Red Cell Distribution Width 20.2 % (11.6-14.8) H Platelet Count 347 K/UL (150-450) Mean Platelet Volume 5.9 FL (6.5-10.1) L Neutrophils (%) (Auto) 55.9 % (45.0-75.0) Lymphocytes (%) (Auto) 19.8 % (20.0-45.0) L Monocytes (%) (Auto) 19.5 % (1.0-10.0) H Eosinophils (%) (Auto) 2.1 % (0.0-3.0) Basophils (%) (Auto) 2.9 % (0.0-2.0) H Sodium Level 143 MMOL/L (136-145) Potassium Level 4.7 MMOL/L (3.5-5.1) Chloride Level 102 MMOL/L (98-107) Carbon Dioxide Level 40 MMOL/L (21-32) H Anion Gap 1 mmol/L (5-15) L Blood Urea Nitrogen 9 mg/dL (7-18) Creatinine 0.5 MG/DL (0.55-1.30) L Estimat Glomerular Filtration Rate > 60 mL/min (>60) Glucose Level 89 MG/DL (74-106) Calcium Level 9.0 MG/DL (8.5-10.1) Robbin Diop M.D. Aug 30, 2017 10:37
[2017-08-30 12:00] VITALS: BP 137/83
[2017-08-30] MEDS ORDERED: NS 500ML ONE (13:49)
[2017-08-30] MEDS ORDERED: Tubing IV Secondary IV ONE (13:49)
--- NOTE | 2017-08-30 14:53 | Neurology Progress Note ---
Interim History Interim History Interim History Ms. Reina feels better. The mind is clearer. She feels a little stronger - but is still generally weak. She stood up and took a few steps today with the PT. She continues to be cognitively impoverished. She denies any new problems. She denies any new neurologic symptoms. Review of Systems Neuro Review of Systems Benign. Objective Physical Exam Last Vital Signs Date Time Temp Pulse Resp B/P (MAP) Pulse Ox O2 Delivery O2 Flow Rate FiO2 08/30/17 13:22 104 20 100 Nasal Cannula 3.0 32 08/30/17 12:00 98.1 137/83 98.1 Laboratory Tests Test 08/30/17 06:00 White Blood Count 5.3 K/UL (4.8-10.8) Red Blood Count 5.06 M/UL (4.20-5.40) Hemoglobin 8.6 G/DL (12.0-16.0) L Hematocrit 33.4 % (37.0-47.0) L Mean Corpuscular Volume 66 FL (80-99) L Mean Corpuscular Hemoglobin 17.0 PG (27.0-31.0) L Mean Corpuscular Hemoglobin Concent 25.8 G/DL (32.0-36.0) L Red Cell Distribution Width 20.2 % (11.6-14.8) H Platelet Count 347 K/UL (150-450) Mean Platelet Volume 5.9 FL (6.5-10.1) L Neutrophils (%) (Auto) 55.9 % (45.0-75.0) Lymphocytes (%) (Auto) 19.8 % (20.0-45.0) L Monocytes (%) (Auto) 19.5 % (1.0-10.0) H Eosinophils (%) (Auto) 2.1 % (0.0-3.0) Basophils (%) (Auto) 2.9 % (0.0-2.0) H Sodium Level 143 MMOL/L (136-145) Potassium Level 4.7 MMOL/L (3.5-5.1) Chloride Level 102 MMOL/L (98-107) Carbon Dioxide Level 40 MMOL/L (21-32) H Anion Gap 1 mmol/L (5-15) L Blood Urea Nitrogen 9 mg/dL (7-18) Creatinine 0.5 MG/DL (0.55-1.30) L Estimat Glomerular Filtration Rate > 60 mL/min (>60) Glucose Level 89 MG/DL (74-106) Calcium Level 9.0 MG/DL (8.5-10.1) Neurologic Exam Objective PHYSICAL EXAMINATION: GENERAL: She is a well-developed, relatively well-nourished black lady, lying in bed, in no acute distress. HEAD: Normocephalic and atraumatic. EENT: Examination benign. NECK: No neck rigidity was observed. NEUROLOGICAL EXAMINATION: MENTAL STATUS EXAMINATION: She was awake and alert. She was oriented to [facility] and August 30. She did not know the year. She was able to recall 3/3 words immediately but could only remember 1/3 in 1 and 3 minutes. She was able to remember presidents Trump and Obama only with hints. Her mathematical skills were impaired. Her visuospatial function was relatively good. SPEECH: She had a mild dysarthria. LANGUAGE: She had an anomia for low frequency words. CRANIAL NERVE EXAMINATION: II: The visual melara were intact on confrontation. III, IV & : The external ocular movements were full and the pupils were 3 mm in diameter and reactive sluggishly to light. V: She had normal facial sensations and the temporales, masseters and pterygoids functioned normally. VII: She had normal facial expressions and no facial asymmetry. VIII: She was able to hear well and had no nystagmus. IX: The palate moved symmetrically on phonation. X: She had no hoarseness of voice. XI: The sternocleidomastoids and trapezii functioned normally. XII: The tongue was in the midline. MOTOR SYSTEM: The tone was normal in all four extremities. Examination of muscle mass revealed no focal wasting. Examination of power revealed G 5/5 power except for G 4++/5 in the iliopsoas muscle bilaterally. SENSORY EXAMINATION: She had intact sensations to pin prick, light touch and graphesthesia. Position sense was diminished in the toes bilaterally. REFLEXES: 0 at the biceps, triceps, brachioradialis, knees, and ankles. The plantar responses were mute bilaterally. COORDINATION: She performed well on mkfekw-bp-cavg and oniq-ni-hrut testing. STANCE & GAIT: Were deferred. ABNORMAL MOVEMENTS: Asterixis: G 0/4 Impression/Recommendations Diagnostic Impression 1. Ms. Latoya Reina is a 62-year-old, right-handed, black lady, who does have past history of multiple medical problems including bipolar affective disorder, chronic obstructive pulmonary disease, obstructive sleep apnea, mixed pulmonary hypertension, diastolic dysfunction, iron deficiency anemia, alcohol abuse, and tobacco abuse, who was hospitalized for failure to thrive at home and an altered mental state. 2. On 08/27/17 she had a period of agitation for which she was given Ativan. Following that she became unresponsive. ABGs revealed that she was severely hypercapneic and hypoxemic. Those problems were corrected and she is brighter today. 3. She feels better. The mind is clearer. She feels a little stronger - but is still generally weak. She stood up and took a few steps today with the PT. She continues to be cognitively impoverished. She denies any new problems. She denies any new neurologic symptoms. 4. On neurological examination, at this time, she does have problems with orientation, recent and remote memory, higher cognitive function and language - however her cognitive function is improving. She also has proximal lower extremity weakness, decreased position sense in the toes bilaterally, inability to perform Romberg test, globally absent deep tendon reflexes, a wide based stance and a wide based unsteady gait. 5. Laboratory data noted on my initial evaluation revealed an anemia with a hemoglobin of 9.1 G. The arterial blood gas performed on 08/26/2017, revealed that she was retaining carbon dioxide with pCO2 of 60.8 and was hypoxemic with a pO2 of 43 with pH of 7.38. The chemistry panel revealed that her sodium was elevated to 147, chloride elevated to 108, CO2 elevated to 39, glucose elevated to 108, her BNP was elevated to 672, and TSH was normal at 1.18. Her urinalysis revealed 2-4 RBCs and 0-2 WBCs per high-power field with negative leukocyte esterase. 6. Laboratory data obtained on 08/28/17 revealed a pCO2 elevated at 93, a pO2 down at 63, pH down to 7.25, HB down at 8.7 G and a low Vitamin B 12 at [address] scan of the brain without contrast performed on 08/26/2017, revealed mild atrophy and some deep white matter changes, but no acute pathology. 8. The EEG performed on 08/29/17 revealed a mild encephalopathy with a toxic/ metabolic component. 9. The patient's history, neurological examination, laboratory data, imaging and EEG are most compatible with, a significant toxic/metabolic encephalopathy which is now improving. 10. She says that people have told her that she is getting demented. In the presence of an ongoing encephalopathy one cannot make a diagnosis of dementia. Recommendations 1. Continue present management. 2. Vitamin B12 - 1000 mcg SC daily x 3 and then monthly. 3. All mind-altering drugs should be held. 4. STOP drinking alcohol. 5. Mobilize with PT. 6. Observe closely. 7. If discharged - follow up in office in 6-8 weeks. Samuel Tracy M.D., M.S.P.SAMUEL MARAVILLA Aug 30, 2017 14:53
[2017-08-30 16:00] VITALS: BP 140/74
--- NOTE | 2017-08-30 16:01 | General Progress Note ---
Assessment/Plan Problem List: (1) COPD (chronic obstructive pulmonary disease) ICD Codes: J44.9 - Chronic obstructive pulmonary disease, unspecified SNOMED: 24490179 (2) H/O tobacco use, presenting hazards to health ICD Codes: Z87.891 - Personal history of nicotine dependence SNOMED: 5224431928227 (3) Anemia ICD Codes: D64.9 - Anemia, unspecified SNOMED: 701227996 (4) Alcohol abuse ICD Codes: F10.10 - Alcohol abuse, uncomplicated SNOMED: 58643662 (5) Noncompliance ICD Codes: Z91.19 - Patient's noncompliance with other medical treatment and regimen SNOMED: 0420921 (6) Bipolar disorder ICD Codes: F31.9 - Bipolar disorder, unspecified SNOMED: 82375706 (7) Acute respiratory failure with hypoxia ICD Codes: J96.01 - Acute respiratory failure with hypoxia SNOMED: 70344683, 374605240 (8) Failure to thrive SNOMED: 55218612 (9) Altered mental state ICD Codes: R41.82 - Altered mental status, unspecified SNOMED: 097796012 (10) FTT (failure to thrive) in adult ICD Codes: R62.7 - Adult failure to thrive SNOMED: 099114857 (11) UTI (urinary tract infection) ICD Codes: N39.0 - Urinary tract infection, site not specified SNOMED: 49328830 (12) Hypomagnesemia ICD Codes: E83.42 - Hypomagnesemia SNOMED: 854598053 (13) Diastolic CHF ICD Codes: I50.30 - Unspecified diastolic (congestive) heart failure SNOMED: 46033772, 256172105 Status: stable, progressing Assessment/Plan - Cardiology, nephrology, neurology, pulmonology, psychiatry consulted #Acute encephalopathy - CT head negative for acute pathology. Check RPR, vitamin B12, folate, TSH, UA to r/o metabolic etiology for AMS. Now improved. - EEG abnormal showing slowed brain waves - apprec neuro rec's #Chronic diastolic CHF - ECHO with 60% EF with diastolic dysfunction noted and mild PAH - CXR with small bilateral pleural effusion - EKG/trend trop--unremarkable - BNP 722 - SPOT DOSE LASIX - monitor I&O - no indication for RHC at this time - apprec cards rec's #UTI - UA with positive nitrites. F/u urine cx -- E.coli. - change keflex to macrobid #Acute respiratory failure may be 2/2 COPD exacerbation vs. CHF exacerbation - pulmonary toilet. titrate FiO2 down for O2 sats to be greater than 90% - duonebs ATC and prn - Advair and spiriva - apprec pulm rec's #Alcohol abuse - multivitamin, folate, thiamine daily - encourage compliance and alcohol cessation #Vitamin B12 deficiency - vitamin B12 SC injections #FTT - check prealbumin/albumin - nutrition consult #Bipolar d/o - psychiatry consulted - continue to reduce mind altering meds at this time given acute AMS #Electrolyte imbalance - replete Mg with 1g MgSO4 today - monitor BMP and Mg CLEARED PER NEURO. WILL ARRANGE PLACEMENT. DVT Prophylaxis: SCD, HSQ Code Status: Full Hospital Classification Declaration: Based on this initial evaluation, and depending on the patient's clinical course, I anticipate that this patient will require hospitalization for 2-3 days for acute on chronic CHF exacerbation and close respiratory/hemodynamic monitoring. Disposition: Once the patient is stable to leave the hospital, I anticipate the patient will likely be discharged to the following environment: home with HH vs SNF I spent 32 minutes on this patient's case, and 20 minutes were dedicated to counseling and/or care coordination. Discussed with patient/family, nursing staff, SW/CM, pulmonology, cardiology, neurology regarding clinical status, treatment course, and disposition planning. Time of note may not reflect time of encounter. Subjective Date patient seen: Aug 30, 2017 Time patient seen: 15:57 Allergies: Coded Allergies: CODEINE (Verified Allergy, Intermediate, Itchy, 08/26/17) Subjective - no acute events overnight - EEG results showing abnormal slowing per neuro - AF, HDS. no chest pain, sob Objective Last 24 Hour Vital Signs Date Time Temp Pulse Resp B/P (MAP) Pulse Ox O2 Delivery O2 Flow Rate FiO2 08/30/17 13:22 104 20 100 Nasal Cannula 3.0 32 08/30/17 13:15 101 20 95 Nasal Cannula 3.0 32 08/30/17 12:00 102 08/30/17 12:00 98.1 103 20 137/83 94 98.1 08/30/17 08:14 111 18 99 Nasal Cannula 3.0 32 08/30/17 08:07 109 20 94 Nasal Cannula 3.0 32 08/30/17 08:07 94 Nasal Cannula 3.0 32 08/30/17 08:07 Nasal Cannula 3.0 32 08/30/17 08:00 97.5 105 22 128/72 93 97.5 08/30/17 08:00 111 08/30/17 04:00 103 08/30/17 04:00 98.2 102 18 108/69 96 98.2 08/30/17 01:50 103 18 100 Nasal Cannula 3.0 32 08/30/17 01:38 106 20 97 Nasal Cannula 3.0 32 08/30/17 00:00 98.6 108 20 137/85 98 98.6 08/30/17 00:00 103 08/29/17 20:00 98.1 104 20 117/75 95 98.1 08/29/17 20:00 104 08/29/17 19:41 101 16 100 Nasal Cannula 3.0 32 08/29/17 19:33 Nasal Cannula 3.0 32 08/29/17 19:33 107 20 98 Nasal Cannula 3.0 32 08/29/17 19:32 98 Nasal Cannula 3.0 32 08/29/17 16:15 97.3 106 21 115/57 95 Nasal Cannula 5.0 97.3 08/29/17 16:15 104 Intake and Output 08/29/17 08/30/17 19:00 07:00 Intake Total 120 ml 240 ml Output Total 1100 ml Balance -980 ml 240 ml Intake Oral 120 ml 240 ml Output Urine Total 1100 ml # Voids 2 6 Laboratory Tests 08/30/17 06:00: White Blood Count 5.3, Red Blood Count 5.06, Hemoglobin 8.6L, Hematocrit 33.4L, Mean Corpuscular Volume 66L, Mean Corpuscular Hemoglobin 17.0L, Mean Corpuscular Hemoglobin Concent 25.8L, Red Cell Distribution Width 20.2H, Platelet Count 347, Mean Platelet Volume 5.9L, Neutrophils (%) (Auto) 55.9, Lymphocytes (%) (Auto) 19.8L, Monocytes (%) (Auto) 19.5H, Eosinophils (%) (Auto ) 2.1, Basophils (%) (Auto) 2.9H, Sodium Level 143, Potassium Level 4.7, Chloride Level 102, Carbon Dioxide Level 40H, Anion Gap 1L, Blood Urea Nitrogen 9, Creatinine 0.5L, Estimat Glomerular Filtration Rate > 60, Glucose Level 89, Calcium Level 9.0 Height (Feet): 5 Height (Inches): 11.00 Weight (Pounds): 170 General Appearance: no apparent distress, alert EENT: PERRL/EOMI, normal ENT inspection Neck: non-tender, normal alignment, supple Cardiovascular: normal peripheral pulses, normal rate, regular rhythm Respiratory/Chest: chest wall non-tender, lungs clear, normal breath sounds Abdomen: normal bowel sounds, non tender, soft Extremities: normal range of motion, non-tender Edema: moderate edema Neurologic: open source developer II-XII grossly normal, no motor/sensory deficits, alert, oriented x 3 Skin: normal pigmentation, warm/dry Mary Hong NP Aug 30, 2017 16:01
--- NOTE | 2017-08-30 16:45 | Electroencephalogram ---
DATE OF PROCEDURE: 08/29/2017 EEG REPORT REQUESTING PHYSICIAN: Guevara Ayon M.D. HISTORY: This EEG was performed on a 62-year-old lady with a history of an alteration in mental state associated with multiple medical problems including alcohol abuse, COPD, anxiety and depression, congestive heart failure, and exposure to mind-altering drugs. The purpose of this EEG was to evaluate the patient for the degree and type of encephalopathy. TECHNICAL NOTE: This EEG was performed on a [employer] with electrodes placed on the scalp according to the International 10-20 system. [id number] and hcgmm-wh-icw montages were used. The EEG was technically mediocre due to the fact that the patient would not allow a complete recording and the recording was abbreviated. OBSERVATIONS: In the best awake-state, the background activity consisted of 6.5-7 Hz theta activity with some intermixed 8 Hz alpha frequencies. A few interspersed triphasic waveforms with an anterior to posterior gradient were also seen. No definite focal abnormalities or epileptiform discharges were seen. IMPRESSION: This is an abnormal EEG characterized by: 1. Slowing of the background predominantly in the 6.5-7 Hz theta range with some intermixed 8 Hz alpha frequencies in the reportedly awake state. 2. Presence of triphasic waveforms. COMMENT: This study is consistent with an encephalopathy of a mild degree with a definite toxic metabolic component as evidenced by the triphasic waveforms. James Tracy M.D., M.S.P.H. DR: Kelsie JOB#: [id number] [facility]OSPITALCasey
[2017-08-30 20:00] VITALS: BP 102/54
[2017-08-30] MEDS: Vitamin B12 1000mcg/ml Inj SUBQ SCH (20:40)
--- NOTE | 2017-08-30 20:58 | Pulmonology Progress Note ---
Assessment/Plan Problems: (1) FTT (failure to thrive) in adult (2) COPD (chronic obstructive pulmonary disease) (3) CHF (congestive heart failure) (4) Anemia (5) Bipolar disorder (6) H/O tobacco use, presenting hazards to health (7) Noncompliance (8) Acute on chronic diastolic CHF (congestive heart failure) (9) Acute respiratory failure with hypoxia (10) Altered mental state (11) Hypoalbuminemia (12) Pulmonary hypertension (13) UTI (urinary tract infection) Assessment/Plan ASSESSMENT: 1. Alteration of mental status, likely multifactorial secondary to underlying bipolar disorder, alcoholism, and superimposed urinary tract infection. 2. Acute on chronic hypoxemic respiratory failure, likely secondary to underlying pulmonary hypertension, chronic obstructive pulmonary disease, and diastolic dysfunction. 3. No evidence of decompensated heart failure at this time. 4. Congestive heart failure with diastolic dysfunction. 5. Chronic obstructive pulmonary disease. 6. Chronic hypercapnic respiratory failure. 7. Severe sleep apnea with an AHI of 30. 8. Alcoholism. 9. Extensive former tobacco use. 10. Bipolar disorder. 11. Anxiety disorder. 12. Depression. 13. Iron-deficiency anemia. 14. Failure to thrive. 15. Diabetes TREATMENT PLAN: 1. BiPAP at bedtime and p.r.n. - ENCOURAGE COMPLIANCE 2. Titrate down FiO2 to keep saturations greater than 90%. 3. Advair and Spiriva (Sub for Advair and increase). 4. Hvqbh-bkk-vylfn and p.r.n. bronchodilators. 5. Monitor volumes, PRN lasix 6. Follow up ventilation/perfusion scan to evaluate for CTEPH. 7. Monitor MS, F/U neuro and psych recs 8. Multivitamin, thiamine, and folate. 9. Monitor for signs of alcohol withdrawal. 10. Aspiration precautions. 11. Continue SSI 12. DVT prophylaxis. Heparin subcutaneous. 13. Disposition and planning. The patient will likely need to go to a SNF and then to an outpatient rehabilitation program. Subjective Allergies: Coded Allergies: CODEINE (Verified Allergy, Intermediate, Itchy, 08/26/17) Subjective AFVSS, on 2-3L O2, refused BiPAP again O/N CT CAP noted MS better overall Worked with PT, ambulated No F/C, no CP, no SOB, + cough Objective Last 24 Hour Vital Signs Date Time Temp Pulse Resp B/P (MAP) Pulse Ox O2 Delivery O2 Flow Rate FiO2 08/30/17 16:00 97.5 106 18 140/74 95 97.5 08/30/17 16:00 109 08/30/17 13:22 104 20 100 Nasal Cannula 3.0 32 08/30/17 13:15 101 20 95 Nasal Cannula 3.0 32 08/30/17 12:00 102 08/30/17 12:00 98.1 103 20 137/83 94 98.1 08/30/17 08:14 111 18 99 Nasal Cannula 3.0 32 08/30/17 08:07 109 20 94 Nasal Cannula 3.0 32 08/30/17 08:07 94 Nasal Cannula 3.0 32 08/30/17 08:07 Nasal Cannula 3.0 32 08/30/17 08:00 97.5 105 22 128/72 93 97.5 08/30/17 08:00 111 08/30/17 04:00 103 08/30/17 04:00 98.2 102 18 108/69 96 98.2 08/30/17 01:50 103 18 100 Nasal Cannula 3.0 32 08/30/17 01:38 106 20 97 Nasal Cannula 3.0 32 08/30/17 00:00 98.6 108 20 137/85 98 98.6 08/30/17 00:00 103 Intake and Output 08/29/17 08/30/17 19:00 07:00 Intake Total 120 ml 240 ml Output Total 1100 ml Balance -980 ml 240 ml Intake Oral 120 ml 240 ml Output Urine Total 1100 ml # Voids 2 6 General Appearance: WD/WN, no acute distress HEENT: normocephalic, atraumatic, anicteric, mucous membranes moist Respiratory/Chest: chest wall non-tender, lungs clear, normal breath sounds, no respiratory distress, no accessory muscle use Cardiovascular: normal peripheral pulses, normal rate, regular rhythm Abdomen: normal bowel sounds, soft, non tender, no organomegaly, non distended , no mass Extremities: no cyanosis, no clubbing, no edema Laboratory Tests 08/30/17 06:00: White Blood Count 5.3, Red Blood Count 5.06, Hemoglobin 8.6L, Hematocrit 33.4L, Mean Corpuscular Volume 66L, Mean Corpuscular Hemoglobin 17.0L, Mean Corpuscular Hemoglobin Concent 25.8L, Red Cell Distribution Width 20.2H, Platelet Count 347, Mean Platelet Volume 5.9L, Neutrophils (%) (Auto) 55.9, Lymphocytes (%) (Auto) 19.8L, Monocytes (%) (Auto) 19.5H, Eosinophils (%) (Auto ) 2.1, Basophils (%) (Auto) 2.9H, Sodium Level 143, Potassium Level 4.7, Chloride Level 102, Carbon Dioxide Level 40H, Anion Gap 1L, Blood Urea Nitrogen 9, Creatinine 0.5L, Estimat Glomerular Filtration Rate > 60, Glucose Level 89, Calcium Level 9.0 08/30/17 06:30: Magnesium Level 1.7L Current Medications Medications (Trade) Dose Ordered Sig/Natividad Route PRN Reason Start Time Stop Time Status Last Admin Dose Admin Acetaminophen (Tylenol) 650 mg Q4H PRN ORAL Mild Pain/Temp > 100.5 08/29/17 16:30 09/25/17 16:29 Albuterol/ Ipratropium (Albuterol/ Ipratropium) 3 ml Q4H PRN HHN Shortness of Breath 08/29/17 17:00 09/01/17 16:59 Albuterol/ Ipratropium (Albuterol/ Ipratropium) 3 ml Q6HRT HHN 08/29/17 19:00 09/01/17 12:59 08/30/17 13:34 Dextrose (Dextrose 50%) 25 ml STAT PRN IV Hypoglycemia 08/29/17 16:30 09/28/17 16:29 Dextrose (Dextrose 50%) 50 ml STAT PRN IV Hypoglycemia 08/29/17 16:30 09/28/17 16:29 Diatrizoate Meglum/ Diatrizoate Sod (Gastrografin) 30 ml NOW PRN ORAL Radiology Procedure 08/29/17 16:45 08/31/17 08:59 Diatrizoate Meglum/ Diatrizoate Sod (Gastrografin) 60 ml NOW PRN RECTAL Radiology Procedure 08/29/17 16:45 08/31/17 08:59 Diazepam (Valium) 5 mg Q4H PRN ORAL For Anxiety 08/29/17 17:00 09/05/17 16:59 Folic Acid (Folate) 1 mg DAILY ORAL 08/30/17 09:00 09/27/17 08:59 08/30/17 08:42 Furosemide (Lasix) 20 mg DAILY IV 08/30/17 09:00 09/27/17 08:59 08/30/17 08:43 Haloperidol Lactate (Haldol) 5 mg Q6H PRN IM Agitation 08/29/17 17:00 09/26/17 16:59 Heparin Sodium (Porcine) (Heparin 5000 units/ml) 5,000 units EVERY 12 HOURS SUBQ 08/29/17 21:00 09/25/17 20:59 08/30/17 20:42 Insulin Aspart (NovoLOG) BEFORE MEALS AND HS SUBQ 08/29/17 17:00 09/27/17 16:59 08/30/17 20:43 Iron Sucrose 100 mg/Sodium Chloride 115 ml @ 460 mls/hr BEDTIME IV 08/29/17 21:00 09/03/17 20:59 08/29/17 21:22 Lansoprazole (Prevacid) 30 mg BID ORAL 08/29/17 18:00 09/26/17 17:59 08/30/17 18:35 Magnesium Sulfate 100 ml @ 100 mls/hr Q1H IVPB 08/30/17 20:30 08/30/17 22:29 08/30/17 20:40 Multivitamins (Multivitamins) 1 tab DAILY ORAL 08/30/17 09:00 09/27/17 08:59 08/30/17 08:42 Nitrofurantoin (Macrobid) 100 mg EVERY 12 HOURS ORAL 08/29/17 21:00 09/28/17 20:59 08/30/17 20:39 Ondansetron HCl (Zofran) 4 mg Q6H PRN IVP Nausea & Vomiting 08/29/17 17:00 09/25/17 16:59 Salmeterol Xinafoate/ Fluticasone (Advair 250/50 Diskus) 1 puffs BID INH 08/29/17 18:00 09/26/17 17:59 08/30/17 10:23 Thiamine HCl (Vitamin B1) 100 mg DAILY ORAL 08/30/17 09:00 09/27/17 08:59 08/30/17 08:43 Tiotropium [place] (Spiriva Inhaler) 1 puff DAILY INH 08/30/17 09:00 09/27/17 08:59 08/30/17 10:24 Guevara Ayon MD Aug 30, 2017 20:58
--- NOTE | 2017-08-30 22:12 | General Progress Note ---
Assessment/Plan Assessment/Plan encephalopathy bipolar agitation alcohol Haldol prn thiamin folate Subjective Date patient seen: Aug 30, 2017 Neurologic/Psychiatric: Reports: anxiety, depressed, emotional problems Allergies: Coded Allergies: CODEINE (Verified Allergy, Intermediate, Itchy, 08/26/17) Subjective the pt is doing better calmer. c/o anxiety Objective Last 24 Hour Vital Signs Date Time Temp Pulse Resp B/P (MAP) Pulse Ox O2 Delivery O2 Flow Rate FiO2 08/30/17 21:38 99 20 98 Nasal Cannula 3.0 32 08/30/17 21:18 92 20 93 Nasal Cannula 3.0 32 08/30/17 21:18 Nasal Cannula 3.0 32 08/30/17 21:16 92 Nasal Cannula 3.0 32 08/30/17 20:00 97.9 106 20 102/54 90 97.9 08/30/17 16:00 97.5 106 18 140/74 95 97.5 08/30/17 16:00 109 08/30/17 13:22 104 20 100 Nasal Cannula 3.0 32 08/30/17 13:15 101 20 95 Nasal Cannula 3.0 32 08/30/17 12:00 102 08/30/17 12:00 98.1 103 20 137/83 94 98.1 08/30/17 08:14 111 18 99 Nasal Cannula 3.0 32 08/30/17 08:07 109 20 94 Nasal Cannula 3.0 32 08/30/17 08:07 94 Nasal Cannula 3.0 32 08/30/17 08:07 Nasal Cannula 3.0 32 08/30/17 08:00 97.5 105 22 128/72 93 97.5 08/30/17 08:00 111 08/30/17 04:00 103 08/30/17 04:00 98.2 102 18 108/69 96 98.2 08/30/17 01:50 103 18 100 Nasal Cannula 3.0 32 08/30/17 01:38 106 20 97 Nasal Cannula 3.0 32 08/30/17 00:00 98.6 108 20 137/85 98 98.6 08/30/17 00:00 103 Intake and Output 08/29/17 08/30/17 19:00 07:00 Intake Total 120 ml 240 ml Output Total 1100 ml Balance -980 ml 240 ml Intake Oral 120 ml 240 ml Output Urine Total 1100 ml # Voids 2 6 Laboratory Tests 08/30/17 06:00: White Blood Count 5.3, Red Blood Count 5.06, Hemoglobin 8.6L, Hematocrit 33.4L, Mean Corpuscular Volume 66L, Mean Corpuscular Hemoglobin 17.0L, Mean Corpuscular Hemoglobin Concent 25.8L, Red Cell Distribution Width 20.2H, Platelet Count 347, Mean Platelet Volume 5.9L, Neutrophils (%) (Auto) 55.9, Lymphocytes (%) (Auto) 19.8L, Monocytes (%) (Auto) 19.5H, Eosinophils (%) (Auto ) 2.1, Basophils (%) (Auto) 2.9H, Sodium Level 143, Potassium Level 4.7, Chloride Level 102, Carbon Dioxide Level 40H, Anion Gap 1L, Blood Urea Nitrogen 9, Creatinine 0.5L, Estimat Glomerular Filtration Rate > 60, Glucose Level 89, Calcium Level 9.0 08/30/17 06:30: Magnesium Level 1.7L Height (Feet): 5 Height (Inches): 11.00 Weight (Pounds): 170 Abdullahi Zuñiga M.D. Aug 30, 2017 22:12
[2017-08-30] MEDS: Iron Sucrose 100 MG in NS 110 ML IV SCH (22:41)
[2017-08-31] VITALS (7 sets, daily range): BP systolic 106–138; BP diastolic 60–83
[2017-08-31] MEDS: Albuterol/Ipratropium 3ml neb HHN SCH ×4 (01:12→19:10)
[2017-08-31] MEDS: NovoLOG Insulin Flexpen SUBQ SCH ×4 (06:30→20:52)
[2017-08-31 07:45] LABS: BASOPHILS % (AUTO) 1.7 % (0.0-2.0); HEMATOCRIT 33.6 % (37.0-47.0); HEMOGLOBIN 8.7 G/DL (12.0-16.0); LYMPHOCYTES % (AUTO) 22.6 % (20.0-45.0); MEAN CORPUSCULAR VOLUME 67 FL (80-99); MONOCYTES % (AUTO) 19.5 % (1.0-10.0); NEUTROPHILS % (AUTO) 54.2 % (45.0-75.0); PLATELET COUNT 326 K/UL (150-450); RED BLOOD COUNT 5.04 M/UL (4.20-5.40); RED CELL DISTRIBUTION WIDTH 21.3 % (11.6-14.8); WHITE BLOOD COUNT 4.3 K/UL (4.8-10.8)
[2017-08-31 07:55] LABS: ANION GAP 1 mmol/L (5-15); BLOOD UREA NITROGEN 7 mg/dL (7-18); CHLORIDE 101 MMOL/L (98-107); CREATININE 0.5 MG/DL (0.55-1.30); SODIUM 143 MMOL/L (136-145)
[2017-08-31 08:01] LABS: CARBON DIOXIDE 41 MMOL/L (21-32)
[2017-08-31] MEDS: Advair 250/50 Inhaler - 14 dose INH SCH ×2 (08:03→19:10)
[2017-08-31] MEDS ORDERED: NS 275ml ONE (09:09)
[2017-08-31] MEDS: Thiamine 100mg tab ORAL SCH (09:12)
[2017-08-31] MEDS: Heparin 5000 units/ml inj SUBQ SCH ×2 (09:14→20:53)
--- NOTE | 2017-08-31 09:25 | Pulmonology Progress Note ---
Assessment/Plan Problems: (1) FTT (failure to thrive) in adult (2) COPD (chronic obstructive pulmonary disease) (3) CHF (congestive heart failure) (4) Anemia (5) Bipolar disorder (6) H/O tobacco use, presenting hazards to health (7) Noncompliance (8) Acute on chronic diastolic CHF (congestive heart failure) (9) Acute respiratory failure with hypoxia (10) Altered mental state (11) Hypoalbuminemia (12) Pulmonary hypertension (13) UTI (urinary tract infection) Assessment/Plan ASSESSMENT: 1. Alteration of mental status, likely multifactorial secondary to underlying bipolar disorder, alcoholism, and superimposed urinary tract infection. 2. Acute on chronic hypoxemic respiratory failure, likely secondary to underlying pulmonary hypertension, chronic obstructive pulmonary disease, and diastolic dysfunction. 3. No evidence of decompensated heart failure at this time. 4. Congestive heart failure with diastolic dysfunction. 5. Chronic obstructive pulmonary disease. 6. Chronic hypercapnic respiratory failure. 7. Severe sleep apnea with an AHI of 30. 8. Alcoholism. 9. Extensive former tobacco use. 10. Bipolar disorder. 11. Anxiety disorder. 12. Depression. 13. Iron-deficiency anemia. 14. Failure to thrive. 15. Diabetes TREATMENT PLAN: 1. BiPAP at bedtime and p.r.n. - ENCOURAGE COMPLIANCE, CHECK ABG 2. Titrate down FiO2 to keep saturations greater than 90%. 3. Advair and Spiriva (Sub for Advair and increase). 4. Ddalr-cgv-gsgqj and p.r.n. bronchodilators. 5. Monitor volumes, PRN lasix 6. Follow up ventilation/perfusion scan to evaluate for CTEPH. 7. Monitor MS, F/U neuro and psych recs 8. Multivitamin, thiamine, and folate. 9. Monitor for signs of alcohol withdrawal. 10. Aspiration precautions. 11. Continue SSI 12. DVT prophylaxis. Heparin subcutaneous. 13. Disposition and planning. The patient will likely need to go to a SNF and then to an outpatient rehabilitation program. Subjective Allergies: Coded Allergies: CODEINE (Verified Allergy, Intermediate, Itchy, 08/26/17) Subjective AFVSS, on 2-3L O2, refused BiPAP again O/N HCO31 41 MS unchanged Worked with PT, ambulated No F/C, no CP, no SOB, + cough Objective Last 24 Hour Vital Signs Date Time Temp Pulse Resp B/P (MAP) Pulse Ox O2 Delivery O2 Flow Rate FiO2 08/31/17 08:11 96 20 94 Nasal Cannula 3.0 32 08/31/17 08:00 97.5 98 20 113/65 98 Nasal Cannula 3.0 97.5 08/31/17 07:58 Nasal Cannula 3.0 32 08/31/17 07:58 97 16 95 Nasal Cannula 3.0 32 08/31/17 07:58 95 Nasal Cannula 3.0 32 08/31/17 04:00 98.2 95 22 136/78 99 Nasal Cannula 3.0 98.2 08/31/17 04:00 95 08/31/17 01:20 103 20 99 Nasal Cannula 3.0 32 08/31/17 01:12 100 20 94 Nasal Cannula 3.0 32 08/31/17 00:00 97.0 99 22 126/83 99 Nasal Cannula 3.0 97.0 08/31/17 00:00 102 08/30/17 21:38 99 20 98 Nasal Cannula 3.0 32 08/30/17 21:18 92 20 93 Nasal Cannula 3.0 32 08/30/17 21:18 Nasal Cannula 3.0 32 08/30/17 21:16 92 Nasal Cannula 3.0 32 08/30/17 20:00 97.9 106 20 102/54 90 97.9 08/30/17 20:00 106 08/30/17 16:00 97.5 106 18 140/74 95 97.5 08/30/17 16:00 109 08/30/17 13:22 104 20 100 Nasal Cannula 3.0 32 08/30/17 13:15 101 20 95 Nasal Cannula 3.0 32 08/30/17 12:00 102 08/30/17 12:00 98.1 103 20 137/83 94 98.1 Intake and Output 08/30/17 08/31/17 19:00 07:00 Intake Total 435 ml Balance 435 ml Intake Oral 120 ml IV Total 315 ml # Voids 2 6 # Bowel Movements 1 General Appearance: no acute distress, cachetic HEENT: normocephalic, atraumatic, anicteric, mucous membranes moist Respiratory/Chest: chest wall non-tender, lungs clear, normal breath sounds, no respiratory distress, no accessory muscle use Cardiovascular: normal peripheral pulses, normal rate, regular rhythm Abdomen: normal bowel sounds, soft, non tender, no organomegaly, non distended , no mass Extremities: no cyanosis, no clubbing, other - 1+ VIDA Laboratory Tests 08/31/17 07:05: White Blood Count 4.3L, Red Blood Count 5.04, Hemoglobin 8.7L, Hematocrit 33.6L , Mean Corpuscular Volume 67L, Mean Corpuscular Hemoglobin 17.3L, Mean Corpuscular Hemoglobin Concent 25.9L, Red Cell Distribution Width 21.3H, Platelet Count 326, Mean Platelet Volume 5.9L, Neutrophils (%) (Auto) 54.2, Lymphocytes (%) (Auto) 22.6, Monocytes (%) (Auto) 19.5H, Eosinophils (%) (Auto) 2.0, Basophils (%) (Auto) 1.7, Sodium Level 143, Potassium Level 4.0, Chloride Level 101, Carbon Dioxide Level 41*H, Anion Gap 1L, Blood Urea Nitrogen 7, Creatinine 0.5L, Estimat Glomerular Filtration Rate > 60, Glucose Level 100, Calcium Level 9.0 Current Medications Medications (Trade) Dose Ordered Sig/Natividad Route PRN Reason Start Time Stop Time Status Last Admin Dose Admin Acetaminophen (Tylenol) 650 mg Q4H PRN ORAL Mild Pain/Temp > 100.5 08/29/17 16:30 09/25/17 16:29 Albuterol/ Ipratropium (Albuterol/ Ipratropium) 3 ml Q4H PRN HHN Shortness of Breath 08/29/17 17:00 09/01/17 16:59 Albuterol/ Ipratropium (Albuterol/ Ipratropium) 3 ml Q6HRT HHN 08/29/17 19:00 09/01/17 12:59 08/31/17 07:58 Dextrose (Dextrose 50%) 25 ml STAT PRN IV Hypoglycemia 08/29/17 16:30 09/28/17 16:29 Dextrose (Dextrose 50%) 50 ml STAT PRN IV Hypoglycemia 08/29/17 16:30 09/28/17 16:29 Diazepam (Valium) 5 mg Q4H PRN ORAL For Anxiety 08/29/17 17:00 09/05/17 16:59 Folic Acid (Folate) 1 mg DAILY ORAL 08/30/17 09:00 09/27/17 08:59 08/31/17 09:11 Furosemide (Lasix) 20 mg DAILY IV 08/30/17 09:00 09/27/17 08:59 08/31/17 09:13 Haloperidol Lactate (Haldol) 5 mg Q6H PRN IM Agitation 08/29/17 17:00 09/26/17 16:59 Heparin Sodium (Porcine) (Heparin 5000 units/ml) 5,000 units EVERY 12 HOURS SUBQ 08/29/17 21:00 09/25/17 20:59 08/31/17 09:14 Insulin Aspart (NovoLOG) BEFORE MEALS AND HS SUBQ 08/29/17 17:00 09/27/17 16:59 08/30/17 20:43 Iron Sucrose 100 mg/Sodium Chloride 115 ml @ 460 mls/hr BEDTIME IV 08/29/17 21:00 09/03/17 20:59 08/30/17 22:41 Lansoprazole (Prevacid) 30 mg BID ORAL 08/29/17 18:00 09/26/17 17:59 08/31/17 09:12 Multivitamins (Multivitamins) 1 tab DAILY ORAL 08/30/17 09:00 09/27/17 08:59 08/31/17 09:12 Nitrofurantoin (Macrobid) 100 mg EVERY 12 HOURS ORAL 08/29/17 21:00 09/28/17 20:59 08/31/17 09:12 Ondansetron HCl (Zofran) 4 mg Q6H PRN IVP Nausea & Vomiting 08/29/17 17:00 09/25/17 16:59 Salmeterol Xinafoate/ Fluticasone (Advair 250/50 Diskus) 1 puffs BID INH 08/29/17 18:00 09/26/17 17:59 08/31/17 08:03 Thiamine HCl (Vitamin B1) 100 mg DAILY ORAL 08/30/17 09:00 09/27/17 08:59 08/31/17 09:12 Tiotropium [place] (Spiriva Inhaler) 1 puff DAILY INH 08/30/17 09:00 09/27/17 08:59 08/31/17 08:04 Guevara Ayon MD Aug 31, 2017 09:25
--- NOTE | 2017-08-31 12:14 | Cardiology Progress Note ---
Assessment/Plan Status: stable, progressing Assessment/Plan Hypoxemia/Dyspnea COPD Sleep Apnea Mixed pulmonary hypertension Diastolic dysfunction Bipolar disease Iron deficiency anemia Extensive alcohol and smoking use -Continue pulmonary toilet -BiPAP prn - patient refusing -No indication for RHC, PAH is multifactorial Group II/III -No indication for stress testing at this time -Echo reviewed, no significant changes to prior in June -Presentation not consistent with PE, prior work up negative -Mild IV hydration for RV function depression and hyperdyanmic systolic function but caution due to elevated filling pressures and pulmonary congestion , avoid vasodilators/nitro if possible, no indication for dobutamine - BP stable -Spot dose lasix -Physical therapy -Transfer to SNF/Rehab Subjective Cardiovascular: Reports: no symptoms Respiratory: Reports: no symptoms Gastrointestinal/Abdominal: Reports: no symptoms Genitourinary: Reports: no symptoms Subjective No acute events, mild tachycardia, vitals otherwise stable. on 2-3 liters oxygen , CXR with right effusion. CT scan reviewed. Patient refusing BiPAP Objective Last 24 Hour Vital Signs Date Time Temp Pulse Resp B/P (MAP) Pulse Ox O2 Delivery O2 Flow Rate FiO2 08/31/17 08:11 96 20 94 Nasal Cannula 3.0 32 08/31/17 08:00 91 08/31/17 08:00 97.5 98 20 113/65 98 Nasal Cannula 3.0 97.5 08/31/17 07:58 Nasal Cannula 3.0 32 08/31/17 07:58 97 16 95 Nasal Cannula 3.0 32 08/31/17 07:58 95 Nasal Cannula 3.0 32 08/31/17 04:00 98.2 95 22 136/78 99 Nasal Cannula 3.0 98.2 08/31/17 04:00 95 08/31/17 01:20 103 20 99 Nasal Cannula 3.0 32 08/31/17 01:12 100 20 94 Nasal Cannula 3.0 32 08/31/17 00:00 97.0 99 22 126/83 99 Nasal Cannula 3.0 97.0 08/31/17 00:00 102 08/30/17 21:38 99 20 98 Nasal Cannula 3.0 32 08/30/17 21:18 92 20 93 Nasal Cannula 3.0 32 08/30/17 21:18 Nasal Cannula 3.0 32 08/30/17 21:16 92 Nasal Cannula 3.0 32 08/30/17 20:00 97.9 106 20 102/54 90 97.9 08/30/17 20:00 106 08/30/17 16:00 97.5 106 18 140/74 95 97.5 08/30/17 16:00 109 08/30/17 13:22 104 20 100 Nasal Cannula 3.0 32 08/30/17 13:15 101 20 95 Nasal Cannula 3.0 32 General Appearance: no apparent distress EENT: PERRL/EOMI Neck: normal alignment Rhythm: SB Cardiovascular: normal peripheral pulses Respiratory/Chest: decreased breath sounds Abdomen: normal bowel sounds, no organomegaly Extremities: normal range of motion Neurologic: no motor/sensory deficits Intake and Output 08/30/17 08/31/17 19:00 07:00 Intake Total 435 ml Balance 435 ml Intake Oral 120 ml IV Total 315 ml # Voids 2 6 # Bowel Movements 1 Laboratory Tests Test 08/31/17 07:05 White Blood Count 4.3 K/UL (4.8-10.8) L Red Blood Count 5.04 M/UL (4.20-5.40) Hemoglobin 8.7 G/DL (12.0-16.0) L Hematocrit 33.6 % (37.0-47.0) L Mean Corpuscular Volume 67 FL (80-99) L Mean Corpuscular Hemoglobin 17.3 PG (27.0-31.0) L Mean Corpuscular Hemoglobin Concent 25.9 G/DL (32.0-36.0) L Red Cell Distribution Width 21.3 % (11.6-14.8) H Platelet Count 326 K/UL (150-450) Mean Platelet Volume 5.9 FL (6.5-10.1) L Neutrophils (%) (Auto) 54.2 % (45.0-75.0) Lymphocytes (%) (Auto) 22.6 % (20.0-45.0) Monocytes (%) (Auto) 19.5 % (1.0-10.0) H Eosinophils (%) (Auto) 2.0 % (0.0-3.0) Basophils (%) (Auto) 1.7 % (0.0-2.0) Sodium Level 143 MMOL/L (136-145) Potassium Level 4.0 MMOL/L (3.5-5.1) Chloride Level 101 MMOL/L (98-107) Carbon Dioxide Level 41 MMOL/L (21-32) *H Anion Gap 1 mmol/L (5-15) L Blood Urea Nitrogen 7 mg/dL (7-18) Creatinine 0.5 MG/DL (0.55-1.30) L Estimat Glomerular Filtration Rate > 60 mL/min (>60) Glucose Level 100 MG/DL (74-106) Calcium Level 9.0 MG/DL (8.5-10.1) Robbin Diop M.D. Aug 31, 2017 12:14
[2017-08-31] MEDS ORDERED: D5 1/2NS w/KCl 20mEq 1,000 ML IV SCH (14:00)
--- NOTE | 2017-08-31 14:31 | Neurology Progress Note ---
Interim History Interim History Interim History Ms. Reina feels so so today. She has been more drowsy. The mind is is not very clear. She is still generally weak. She spends most of her time in bed. She continues to be cognitively impoverished. She denies any new problems. She denies any new neurologic symptoms. Objective Physical Exam Last Vital Signs Date Time Temp Pulse Resp B/P (MAP) Pulse Ox O2 Delivery O2 Flow Rate FiO2 08/31/17 13:45 97 20 96 Nasal Cannula 3.0 32 08/31/17 12:00 97.2 108/73 97.2 Laboratory Tests Test 08/31/17 07:05 08/31/17 12:25 White Blood Count 4.3 K/UL (4.8-10.8) L Red Blood Count 5.04 M/UL (4.20-5.40) Hemoglobin 8.7 G/DL (12.0-16.0) L Hematocrit 33.6 % (37.0-47.0) L Mean Corpuscular Volume 67 FL (80-99) L Mean Corpuscular Hemoglobin 17.3 PG (27.0-31.0) L Mean Corpuscular Hemoglobin Concent 25.9 G/DL (32.0-36.0) L Red Cell Distribution Width 21.3 % (11.6-14.8) H Platelet Count 326 K/UL (150-450) Mean Platelet Volume 5.9 FL (6.5-10.1) L Neutrophils (%) (Auto) 54.2 % (45.0-75.0) Lymphocytes (%) (Auto) 22.6 % (20.0-45.0) Monocytes (%) (Auto) 19.5 % (1.0-10.0) H Eosinophils (%) (Auto) 2.0 % (0.0-3.0) Basophils (%) (Auto) 1.7 % (0.0-2.0) Sodium Level 143 MMOL/L (136-145) Potassium Level 4.0 MMOL/L (3.5-5.1) Chloride Level 101 MMOL/L (98-107) Carbon Dioxide Level 41 MMOL/L (21-32) *H Anion Gap 1 mmol/L (5-15) L Blood Urea Nitrogen 7 mg/dL (7-18) Creatinine 0.5 MG/DL (0.55-1.30) L Estimat Glomerular Filtration Rate > 60 mL/min (>60) Glucose Level 100 MG/DL (74-106) Calcium Level 9.0 MG/DL (8.5-10.1) Arterial Blood pH 7.309 (7.350-7.450) Arterial Blood Partial Pressure CO2 83.5 mmHg (35.0-45.0) *H Arterial Blood Partial Pressure O2 62.1 mmHg (75.0-100.0) L Arterial Blood HCO3 41.0 mmol/L (22.0-26.0) H Arterial Blood Oxygen Saturation 87.0 % (92.0-98.0) L Arterial Blood Base Excess 12.3 Narciso Test Positive Neurologic Exam Objective PHYSICAL EXAMINATION: GENERAL: She is a well-developed, relatively well-nourished black lady, lying in bed, in no acute distress. HEAD: Normocephalic and atraumatic. EENT: Examination benign. NECK: No neck rigidity was observed. NEUROLOGICAL EXAMINATION: MENTAL STATUS EXAMINATION: She was awake and alert. She was oriented to [facility], and [facility]. She did not know the date, month or year. She was able to recall 3/3 words immediately but could only remember 1/3 in 1 and 3 minutes. She was able to remember presidents Trump only. Her mathematical skills were impaired. Her visuospatial function was relatively good. SPEECH: She had a mild dysarthria. LANGUAGE: She had an anomia for low frequency words. CRANIAL NERVE EXAMINATION: II: The visual melara were intact on confrontation. III, IV & : The external ocular movements were full and the pupils were 3 mm in diameter and reactive sluggishly to light. V: She had normal facial sensations and the temporales, masseters and pterygoids functioned normally. VII: She had normal facial expressions and no facial asymmetry. VIII: She was able to hear well and had no nystagmus. IX: The palate moved symmetrically on phonation. X: She had no hoarseness of voice. XI: The sternocleidomastoids and trapezii functioned normally. XII: The tongue was in the midline. MOTOR SYSTEM: The tone was normal in all four extremities. Examination of muscle mass revealed no focal wasting. Examination of power revealed G 5/5 power except for G 4++/5 in the iliopsoas muscle bilaterally. SENSORY EXAMINATION: She had intact sensations to pin prick, light touch and graphesthesia. Position sense was diminished in the toes bilaterally. REFLEXES: 0 at the biceps, triceps, brachioradialis, knees, and ankles. The plantar responses were mute bilaterally. COORDINATION: She performed well on [id number] and [id number] testing. STANCE & GAIT: Were deferred. ABNORMAL MOVEMENTS: Asterixis: G 0/4 Impression/Recommendations Diagnostic Impression 1. Ms. Latoya Reina is a 62-year-old, right-handed, black lady, who does have past history of multiple medical problems including bipolar affective disorder, chronic obstructive pulmonary disease, obstructive sleep apnea, mixed pulmonary hypertension, diastolic dysfunction, iron deficiency anemia, alcohol abuse, and tobacco abuse, who was hospitalized for failure to thrive at home and an altered mental state. 2. On 08/27/17 she had a period of agitation for which she was given Ativan. Following that she became unresponsive. ABGs revealed that she was severely hypercapneic and hypoxemic. Those problems were corrected and she is brighter today. 3. She feels so so today. She has been more drowsy. The mind is not very clear. She is still generally weak. She spends most of her time 4. On neurological examination, at this time, she does have problems with orientation, recent and remote memory, higher cognitive function and language - her cognitive function is worse today but she is also more drowsy. She has proximal lower extremity weakness, decreased position sense in the toes bilaterally, inability to perform Romberg test, globally absent deep tendon reflexes, a wide based stance and a wide based unsteady gait. 5. Laboratory data noted on my initial evaluation revealed an anemia with a hemoglobin of 9.1 G. The arterial blood gas performed on 08/26/2017, revealed that she was retaining carbon dioxide with pCO2 of 60.8 and was hypoxemic with a pO2 of 43 with pH of 7.38. The chemistry panel revealed that her sodium was elevated to 147, chloride elevated to 108, CO2 elevated to 39, glucose elevated to 108, her BNP was elevated to 672, and TSH was normal at 1.18. Her urinalysis revealed 2-4 RBCs and 0-2 WBCs per high-power field with negative leukocyte esterase. 6. Laboratory data obtained on 08/28/17 revealed a pCO2 elevated at 93, a pO2 down at 63, pH down to 7.25, HB down at 8.7 G and a low Vitamin B 12 at [address] scan of the brain without contrast performed on 08/26/2017, revealed mild atrophy and some deep white matter changes, but no acute pathology. 8. The EEG performed on 08/29/17 revealed a mild encephalopathy with a toxic/ metabolic component. 9. The patient's history, neurological examination, laboratory data, imaging and EEG are most compatible with, a significant toxic/metabolic encephalopathy. The encephalopathy is still waxing and waning and is worse today. Her latest ABGs reveal a pH=7.30, pO2=62.1, pCO2=83.5! 10. She says that people have told her that she is getting demented. In the presence of an ongoing encephalopathy one cannot make a diagnosis of dementia. Recommendations 1. Continue present management. 2. Correct CO2 narcosis and hypoxia. 3. Vitamin B12 - 1000 mcg SC monthly. 4. All mind-altering drugs should be held. 5. STOP drinking alcohol. 6. Mobilize with PT. 7. Observe closely. Samuel Tracy M.D., M.S.P.H. SAMUEL TRACY Aug 31, 2017 14:31
--- NOTE | 2017-08-31 16:26 | General Progress Note ---
Assessment/Plan Problem List: (1) COPD (chronic obstructive pulmonary disease) ICD Codes: J44.9 - Chronic obstructive pulmonary disease, unspecified SNOMED: 19575891 (2) H/O tobacco use, presenting hazards to health ICD Codes: Z87.891 - Personal history of nicotine dependence SNOMED: 2391724045017 (3) Anemia ICD Codes: D64.9 - Anemia, unspecified SNOMED: 913571158 (4) Alcohol abuse ICD Codes: F10.10 - Alcohol abuse, uncomplicated SNOMED: 43500070 (5) Noncompliance ICD Codes: Z91.19 - Patient's noncompliance with other medical treatment and regimen SNOMED: 5577651 (6) Bipolar disorder ICD Codes: F31.9 - Bipolar disorder, unspecified SNOMED: 19218087 (7) Acute respiratory failure with hypoxia ICD Codes: J96.01 - Acute respiratory failure with hypoxia SNOMED: 69467009, 800777863 (8) Failure to thrive SNOMED: 31322891 (9) Altered mental state ICD Codes: R41.82 - Altered mental status, unspecified SNOMED: 595157168 (10) FTT (failure to thrive) in adult ICD Codes: R62.7 - Adult failure to thrive SNOMED: 178837480 (11) UTI (urinary tract infection) ICD Codes: N39.0 - Urinary tract infection, site not specified SNOMED: 21010191 (12) Hypomagnesemia ICD Codes: E83.42 - Hypomagnesemia SNOMED: 876458426 (13) Diastolic CHF ICD Codes: I50.30 - Unspecified diastolic (congestive) heart failure SNOMED: 74077631, 005038710 (14) Chronic hypercapnic respiratory failure ICD Codes: J96.12 - Chronic respiratory failure with hypercapnia SNOMED: 355482222 Status: stable, progressing Assessment/Plan - Cardiology, nephrology, neurology, pulmonology, psychiatry consulted #Acute on chronic encephalopathy - CT head negative for acute pathology. Check RPR, vitamin B12, folate, TSH, UA to r/o metabolic etiology for AMS. Now improved. - EEG abnormal showing slowed brain waves - may be in the setting of CO2 retention - apprec neuro rec's #Chronic diastolic CHF - ECHO with 60% EF with diastolic dysfunction noted and mild PAH - CXR with small bilateral pleural effusion - EKG/trend trop--unremarkable - BNP 722 - SPOT DOSE LASIX - monitor I&O - no indication for RHC at this time - apprec cards rec's #UTI - UA with positive nitrites. F/u urine cx -- E.coli. - change keflex to macrobid #Acute respiratory failure may be 2/2 COPD exacerbation vs. CHF exacerbation - pulmonary toilet. titrate FiO2 down for O2 sats to be greater than 90% - duonebs ATC and prn - Advair and spiriva - continue bipap - apprec pulm rec's - CONTINUE TO ENCOURAGE COMPLIANCE #Alcohol abuse - multivitamin, folate, thiamine daily - encourage compliance and alcohol cessation #Vitamin B12 deficiency - vitamin B12 SC injections #FTT - check prealbumin/albumin - nutrition consult #Bipolar d/o - psychiatry consulted - continue to reduce mind altering meds at this time given acute AMS #Electrolyte imbalance - replete Mg with 1g MgSO4 today - monitor BMP and Mg CLEARED PER NEURO. PENDING DISPO TO [facility] WITH BIPAP DVT Prophylaxis: SCD, HSQ Code Status: Full Hospital Classification Declaration: Based on this initial evaluation, and depending on the patient's clinical course, I anticipate that this patient will require hospitalization for 2-3 days for acute on chronic CHF exacerbation and close respiratory/hemodynamic monitoring. Disposition: Once the patient is stable to leave the hospital, I anticipate the patient will likely be discharged to the following environment: [facility] I spent 32 minutes on this patient's case, and 20 minutes were dedicated to counseling and/or care coordination. Discussed with patient/family, nursing staff, SW/CM, pulmonology, cardiology, neurology regarding clinical status, treatment course, and disposition planning. Time of note may not reflect time of encounter. Subjective Date patient seen: Aug 31, 2017 Time patient seen: 13:00 Allergies: Coded Allergies: CODEINE (Verified Allergy, Intermediate, Itchy, 08/26/17) Subjective - refused bipap overnight. CO2 on ABGs at 83 - remains with mild confusion. alert and oriented to person - states that she feels lousy. denies cp Objective Last 24 Hour Vital Signs Date Time Temp Pulse Resp B/P (MAP) Pulse Ox O2 Delivery O2 Flow Rate FiO2 08/31/17 15:37 91 16 94 Facial 40 08/31/17 13:45 97 20 96 Nasal Cannula 3.0 32 08/31/17 13:23 100 22 94 Nasal Cannula 3.0 32 08/31/17 12:00 97.2 99 20 108/73 95 Nasal Cannula 3.0 97.2 08/31/17 12:00 93 08/31/17 08:11 96 20 94 Nasal Cannula 3.0 32 08/31/17 08:00 91 08/31/17 08:00 97.5 98 20 113/65 98 Nasal Cannula 3.0 97.5 08/31/17 07:58 Nasal Cannula 3.0 32 08/31/17 07:58 97 16 95 Nasal Cannula 3.0 32 08/31/17 07:58 95 Nasal Cannula 3.0 32 08/31/17 04:00 98.2 95 22 136/78 99 Nasal Cannula 3.0 98.2 08/31/17 04:00 95 08/31/17 01:20 103 20 99 Nasal Cannula 3.0 32 08/31/17 01:12 100 20 94 Nasal Cannula 3.0 32 08/31/17 00:00 97.0 99 22 126/83 99 Nasal Cannula 3.0 97.0 08/31/17 00:00 102 08/30/17 21:38 99 20 98 Nasal Cannula 3.0 32 08/30/17 21:18 92 20 93 Nasal Cannula 3.0 32 08/30/17 21:18 Nasal Cannula 3.0 32 08/30/17 21:16 92 Nasal Cannula 3.0 32 08/30/17 20:00 97.9 106 20 102/54 90 97.9 08/30/17 20:00 106 Intake and Output 08/30/17 08/31/17 19:00 07:00 Intake Total 435 ml Balance 435 ml Intake Oral 120 ml IV Total 315 ml # Voids 2 6 # Bowel Movements 1 Laboratory Tests 08/31/17 07:05: White Blood Count 4.3L, Red Blood Count 5.04, Hemoglobin 8.7L, Hematocrit 33.6L , Mean Corpuscular Volume 67L, Mean Corpuscular Hemoglobin 17.3L, Mean Corpuscular Hemoglobin Concent 25.9L, Red Cell Distribution Width 21.3H, Platelet Count 326, Mean Platelet Volume 5.9L, Neutrophils (%) (Auto) 54.2, Lymphocytes (%) (Auto) 22.6, Monocytes (%) (Auto) 19.5H, Eosinophils (%) (Auto) 2.0, Basophils (%) (Auto) 1.7, Sodium Level 143, Potassium Level 4.0, Chloride Level 101, Carbon Dioxide Level 41*H, Anion Gap 1L, Blood Urea Nitrogen 7, Creatinine 0.5L, Estimat Glomerular Filtration Rate > 60, Glucose Level 100, Calcium Level 9.0 08/31/17 12:25: Arterial Blood pH 7.309L, Arterial Blood Partial Pressure CO2 83.5*H, Arterial Blood Partial Pressure O2 62.1L, Arterial Blood HCO3 41.0H, Arterial Blood Oxygen Saturation 87.0L, Arterial Blood Base Excess 12.3, Narciso Test Positive Height (Feet): 5 Height (Inches): 11.00 Weight (Pounds): 171 General Appearance: lethargic, confused EENT: PERRL/EOMI, normal ENT inspection Neck: non-tender, normal alignment, supple Cardiovascular: normal peripheral pulses, normal rate, regular rhythm Respiratory/Chest: chest wall non-tender, lungs clear, normal breath sounds Abdomen: normal bowel sounds, non tender, soft Extremities: normal range of motion, non-tender 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
[2017-08-31] MEDS: Iron Sucrose 100 MG in NS 110 ML IV SCH (20:51)
[2017-09-01] MEDS: Albuterol/Ipratropium 3ml neb HHN SCH ×2 (01:03→06:50)
[2017-09-01 04:00] VITALS: BP 121/72
[2017-09-01] MEDS: NovoLOG Insulin Flexpen SUBQ SCH ×4 (06:30→21:00)
[2017-09-01 07:16] LABS: POTASSIUM 3.7 MMOL/L (3.5-5.1); SODIUM 144 MMOL/L (136-145)
[2017-09-01 07:19] LABS: BASOPHILS % (AUTO) 1.5 % (0.0-2.0); EOSINOPHILS % (AUTO) 2.1 % (0.0-3.0); HEMATOCRIT 32.4 % (37.0-47.0); HEMOGLOBIN 8.4 G/DL (12.0-16.0); LYMPHOCYTES % (AUTO) 35.4 % (20.0-45.0); MEAN CORPUSCULAR VOLUME 66 FL (80-99); MONOCYTES % (AUTO) 19.9 % (1.0-10.0); NEUTROPHILS % (AUTO) 41.1 % (45.0-75.0); PLATELET COUNT 259 K/UL (150-450); RED BLOOD COUNT 4.89 M/UL (4.20-5.40); RED CELL DISTRIBUTION WIDTH 21.2 % (11.6-14.8); WHITE BLOOD COUNT 4.2 K/UL (4.8-10.8)
[2017-09-01 07:42] LABS: ANION GAP 2 mmol/L (5-15); BLOOD UREA NITROGEN 9 mg/dL (7-18); CALCIUM 8.8 MG/DL (8.5-10.1); CARBON DIOXIDE 40 MMOL/L (21-32); CHLORIDE 102 MMOL/L (98-107); CREATININE 0.5 MG/DL (0.55-1.30)
[2017-09-01 08:00] VITALS: BP 111/59
--- NOTE | 2017-09-01 08:58 | Pulmonology Progress Note ---
Assessment/Plan Problems: (1) FTT (failure to thrive) in adult (2) COPD (chronic obstructive pulmonary disease) (3) CHF (congestive heart failure) (4) Anemia (5) Bipolar disorder (6) H/O tobacco use, presenting hazards to health (7) Noncompliance (8) Acute on chronic diastolic CHF (congestive heart failure) (9) Acute respiratory failure with hypoxia (10) Altered mental state (11) Hypoalbuminemia (12) Pulmonary hypertension (13) UTI (urinary tract infection) Assessment/Plan ASSESSMENT: 1. Alteration of mental status, likely multifactorial secondary to underlying bipolar disorder, alcoholism, and superimposed urinary tract infection. 2. Acute on chronic hypoxemic respiratory failure, likely secondary to underlying pulmonary hypertension, chronic obstructive pulmonary disease, and diastolic dysfunction. 3. No evidence of decompensated heart failure at this time. 4. Congestive heart failure with diastolic dysfunction. 5. Chronic obstructive pulmonary disease. 6. Chronic hypercapnic respiratory failure. 7. Severe sleep apnea with an AHI of 30. 8. Alcoholism. 9. Extensive former tobacco use. 10. Bipolar disorder. 11. Anxiety disorder. 12. Depression. 13. Iron-deficiency anemia. 14. Failure to thrive. 15. Diabetes TREATMENT PLAN: 1. BiPAP at bedtime and p.r.n. - ENCOURAGE COMPLIANCE, MONITOR GAS EXCHANGE 2. Titrate down FiO2 to keep saturations greater than 90%. 3. Advair and Spiriva (Sub for Advair and increase). 4. Tmrvz-eyh-ilvfv and p.r.n. bronchodilators. 5. Monitor volumes, PRN lasix 6. Follow up ventilation/perfusion scan to evaluate for CTEPH. 7. Monitor MS, F/U neuro and psych recs 8. Multivitamin, thiamine, and folate. 9. Monitor for signs of alcohol withdrawal. 10. Aspiration precautions. 11. Continue SSI 12. DVT prophylaxis. Heparin subcutaneous. 13. Disposition and planning. The patient will likely need to go to a SNF and then to an outpatient rehabilitation program. Subjective Allergies: Coded Allergies: CODEINE (Verified Allergy, Intermediate, Itchy, 08/26/17) Subjective AFVSS, on 2-3L O2 PCO2 > 80 yesterday, briefly agreed to go on BiPAP then refused it again today MS waxes and wanes No F/C, no CP, no SOB, + cough Objective Last 24 Hour Vital Signs Date Time Temp Pulse Resp B/P (MAP) Pulse Ox O2 Delivery O2 Flow Rate FiO2 09/01/17 08:00 98.1 96 20 111/59 97 98.1 09/01/17 06:57 99 20 99 Nasal Cannula 3.0 32 09/01/17 06:51 99 Nasal Cannula 3.0 32 09/01/17 06:51 Nasal Cannula 3.0 32 09/01/17 06:50 96 20 96 Nasal Cannula 3.0 32 09/01/17 05:15 88 16 97 Facial 40 09/01/17 04:00 97.6 88 20 121/72 Bi-pap 97.6 09/01/17 03:37 90 09/01/17 03:36 93 19 97 Facial 40 09/01/17 01:12 102 20 97 Nasal Cannula 3.0 32 09/01/17 01:02 101 20 95 Nasal Cannula 3.0 32 09/01/17 00:07 99 08/31/17 23:54 97.9 98 18 106/60 96 Nasal Cannula 3.0 97.9 08/31/17 20:04 98.4 105 18 109/61 92 Nasal Cannula 2.0 98.4 08/31/17 19:34 107 08/31/17 19:20 103 20 96 Nasal Cannula 3.0 32 08/31/17 19:12 102 20 94 Nasal Cannula 3.0 32 08/31/17 19:12 102 20 Nasal Cannula 3.0 32 08/31/17 19:10 Nasal Cannula 3.0 32 08/31/17 19:10 94 Nasal Cannula 3.0 32 08/31/17 16:00 98.9 97 18 138/78 100 Nasal Cannula 3.0 98.9 08/31/17 16:00 97 08/31/17 15:37 91 16 94 Facial 40 08/31/17 13:45 97 20 96 Nasal Cannula 3.0 32 08/31/17 13:23 100 22 94 Nasal Cannula 3.0 32 08/31/17 12:00 97.2 99 20 108/73 95 Nasal Cannula 3.0 97.2 08/31/17 12:00 93 Intake and Output 08/31/17 09/01/17 19:00 07:00 Intake Total 240 ml 500 ml Balance 240 ml 500 ml Intake Oral 240 ml 500 ml # Voids 3 2 # Bowel Movements 1 General Appearance: WD/WN, no acute distress HEENT: normocephalic, atraumatic, anicteric, mucous membranes moist Respiratory/Chest: chest wall non-tender, lungs clear, normal breath sounds, no respiratory distress, no accessory muscle use Cardiovascular: normal peripheral pulses, normal rate, regular rhythm Abdomen: normal bowel sounds, soft, non tender, no organomegaly, non distended , no mass Extremities: no cyanosis, no clubbing, no edema Laboratory Tests 08/31/17 12:25: Arterial Blood pH 7.309L, Arterial Blood Partial Pressure CO2 83.5*H, Arterial Blood Partial Pressure O2 62.1L, Arterial Blood HCO3 41.0H, Arterial Blood Oxygen Saturation 87.0L, Arterial Blood Base Excess 12.3, Narciso Test Positive 09/01/17 05:40: White Blood Count 4.2L, Red Blood Count 4.89, Hemoglobin 8.4L, Hematocrit 32.4L , Mean Corpuscular Volume 66L, Mean Corpuscular Hemoglobin 17.2L, Mean Corpuscular Hemoglobin Concent 26.0L, Red Cell Distribution Width 21.2H, Platelet Count 259, Mean Platelet Volume 5.7L, Neutrophils (%) (Auto) 41.1L, Lymphocytes (%) (Auto) 35.4, Monocytes (%) (Auto) 19.9H, Eosinophils (%) (Auto) 2.1, Basophils (%) (Auto) 1.5, Sodium Level 144, Potassium Level 3.7, Chloride Level 102, Carbon Dioxide Level 40H, Anion Gap 2L, Blood Urea Nitrogen 9, Creatinine 0.5L, Estimat Glomerular Filtration Rate > 60, Glucose Level 88, Calcium Level 8.8 Current Medications Medications (Trade) Dose Ordered Sig/Natividad Route PRN Reason Start Time Stop Time Status Last Admin Dose Admin Acetaminophen (Tylenol) 650 mg Q4H PRN ORAL Mild Pain/Temp > 100.5 08/29/17 16:30 09/25/17 16:29 08/31/17 23:51 Albuterol/ Ipratropium (Albuterol/ Ipratropium) 3 ml Q4H PRN HHN Shortness of Breath 08/29/17 17:00 09/01/17 16:59 Albuterol/ Ipratropium (Albuterol/ Ipratropium) 3 ml Q6HRT HHN 08/29/17 19:00 09/01/17 12:59 09/01/17 06:50 Dextrose (Dextrose 50%) 25 ml STAT PRN IV Hypoglycemia 08/29/17 16:30 09/28/17 16:29 Dextrose (Dextrose 50%) 50 ml STAT PRN IV Hypoglycemia 08/29/17 16:30 09/28/17 16:29 Diazepam (Valium) 5 mg Q4H PRN ORAL For Anxiety 08/29/17 17:00 09/05/17 16:59 Folic Acid (Folate) 1 mg DAILY ORAL 08/30/17 09:00 09/27/17 08:59 08/31/17 09:11 Furosemide (Lasix) 20 mg DAILY IV 08/30/17 09:00 09/27/17 08:59 08/31/17 09:13 Haloperidol Lactate (Haldol) 5 mg Q6H PRN IM Agitation 08/29/17 17:00 09/26/17 16:59 Heparin Sodium (Porcine) (Heparin 5000 units/ml) 5,000 units EVERY 12 HOURS SUBQ 08/29/17 21:00 09/25/17 20:59 08/31/17 20:53 Insulin Aspart (NovoLOG) BEFORE MEALS AND HS SUBQ 08/29/17 17:00 09/27/17 16:59 08/31/17 20:52 Iron Sucrose 100 mg/Sodium Chloride 115 ml @ 460 mls/hr BEDTIME IV 08/29/17 21:00 09/03/17 20:59 08/31/17 20:51 Lansoprazole (Prevacid) 30 mg BID ORAL 08/29/17 18:00 09/26/17 17:59 08/31/17 18:20 Multivitamins (Multivitamins) 1 tab DAILY ORAL 08/30/17 09:00 09/27/17 08:59 08/31/17 09:12 Nitrofurantoin (Macrobid) 100 mg EVERY 12 HOURS ORAL 08/29/17 21:00 09/28/17 20:59 08/31/17 20:51 Ondansetron HCl (Zofran) 4 mg Q6H PRN IVP Nausea & Vomiting 08/29/17 17:00 09/25/17 16:59 Salmeterol Xinafoate/ Fluticasone (Advair 250/50 Diskus) 1 puffs BID INH 08/29/17 18:00 09/26/17 17:59 08/31/17 19:10 Thiamine HCl (Vitamin B1) 100 mg DAILY ORAL 08/30/17 09:00 09/27/17 08:59 08/31/17 09:12 Tiotropium [place] (Spiriva Inhaler) 1 puff DAILY INH 08/30/17 09:00 09/27/17 08:59 08/31/17 08:04 Guevara Ayon MD Sep 01, 2017 08:58
[2017-09-01] MEDS: Advair 250/50 Inhaler - 14 dose INH SCH ×3 (09:00→19:43)
[2017-09-01] MEDS: Heparin 5000 units/ml inj SUBQ SCH ×2 (09:40→20:53)
[2017-09-01] MEDS: Thiamine 100mg tab ORAL SCH (09:41)
[2017-09-01] MEDS ORDERED: Albuterol/Ipratropium 3ml neb HHN PRN (10:30)
--- NOTE | 2017-09-01 10:55 | Neurology Progress Note ---
Interim History Interim History Interim History Ms. Reina feels better today. She was agitated earlier but feels calm now. She is brighter. The mind is clearer. She is generally stronger. She has been walking well. She continues to be cognitively impoverished. She denies any new problems. She denies any new neurologic symptoms. Review of Systems Neuro Review of Systems Benign. Objective Physical Exam Last Vital Signs Date Time Temp Pulse Resp B/P (MAP) Pulse Ox O2 Delivery O2 Flow Rate FiO2 09/01/17 08:00 98.1 96 20 111/59 97 98.1 09/01/17 06:57 Nasal Cannula 3.0 32 Laboratory Tests Test 08/31/17 12:25 09/01/17 05:40 Arterial Blood pH 7.309 (7.350-7.450) Arterial Blood Partial Pressure CO2 83.5 mmHg (35.0-45.0) *H Arterial Blood Partial Pressure O2 62.1 mmHg (75.0-100.0) L Arterial Blood HCO3 41.0 mmol/L (22.0-26.0) H Arterial Blood Oxygen Saturation 87.0 % (92.0-98.0) L Arterial Blood Base Excess 12.3 Narciso Test Positive White Blood Count 4.2 K/UL (4.8-10.8) L Red Blood Count 4.89 M/UL (4.20-5.40) Hemoglobin 8.4 G/DL (12.0-16.0) L Hematocrit 32.4 % (37.0-47.0) L Mean Corpuscular Volume 66 FL (80-99) L Mean Corpuscular Hemoglobin 17.2 PG (27.0-31.0) L Mean Corpuscular Hemoglobin Concent 26.0 G/DL (32.0-36.0) L Red Cell Distribution Width 21.2 % (11.6-14.8) H Platelet Count 259 K/UL (150-450) Mean Platelet Volume 5.7 FL (6.5-10.1) L Neutrophils (%) (Auto) 41.1 % (45.0-75.0) L Lymphocytes (%) (Auto) 35.4 % (20.0-45.0) Monocytes (%) (Auto) 19.9 % (1.0-10.0) H Eosinophils (%) (Auto) 2.1 % (0.0-3.0) Basophils (%) (Auto) 1.5 % (0.0-2.0) Sodium Level 144 MMOL/L (136-145) Potassium Level 3.7 MMOL/L (3.5-5.1) Chloride Level 102 MMOL/L (98-107) Carbon Dioxide Level 40 MMOL/L (21-32) H Anion Gap 2 mmol/L (5-15) L Blood Urea Nitrogen 9 mg/dL (7-18) Creatinine 0.5 MG/DL (0.55-1.30) L Estimat Glomerular Filtration Rate > 60 mL/min (>60) Glucose Level 88 MG/DL (74-106) Calcium Level 8.8 MG/DL (8.5-10.1) Neurologic Exam Objective PHYSICAL EXAMINATION: GENERAL: She is a well-developed, relatively well-nourished black lady, lying in bed, in no acute distress. HEAD: Normocephalic and atraumatic. EENT: Examination benign. NECK: No neck rigidity was observed. NEUROLOGICAL EXAMINATION: MENTAL STATUS EXAMINATION: She was awake and alert. She was oriented to [facility], and [facility] and August 2017. She did not know the exact date. She was able to recall 3/3 words immediately but could only remember 2/3 in 1 and 3 minutes. She was able to remember [facility] through [facility] only. Her mathematical skills were impaired. Her visuospatial function was relatively good. SPEECH: She had no dysarthria. LANGUAGE: She had an anomia for low frequency words. CRANIAL NERVE EXAMINATION: II: The visual melara were intact on confrontation. III, IV & : The external ocular movements were full and the pupils were 3 mm in diameter and reactive sluggishly to light. V: She had normal facial sensations and the temporales, masseters and pterygoids functioned normally. VII: She had normal facial expressions and no facial asymmetry. VIII: She was able to hear well and had no nystagmus. IX: The palate moved symmetrically on phonation. X: She had no hoarseness of voice. XI: The sternocleidomastoids and trapezii functioned normally. XII: The tongue was in the midline. MOTOR SYSTEM: The tone was normal in all four extremities. Examination of muscle mass revealed no focal wasting. Examination of power revealed G 5/5 power. SENSORY EXAMINATION: She had intact sensations to pin prick, light touch and graphesthesia. Position sense was diminished in the toes bilaterally. REFLEXES: 0 at the biceps, triceps, brachioradialis, knees, and ankles. The plantar responses were mute bilaterally. COORDINATION: She performed well on [id number] and atll-mv-lufp testing. STANCE & GAIT: Were deferred. ABNORMAL MOVEMENTS: Asterixis: G 0/4 Impression/Recommendations Diagnostic Impression 1. Ms. Latoya Reina is a 62-year-old, right-handed, black lady, who does have past history of multiple medical problems including bipolar affective disorder, chronic obstructive pulmonary disease, obstructive sleep apnea, mixed pulmonary hypertension, diastolic dysfunction, iron deficiency anemia, alcohol abuse, and tobacco abuse, who was hospitalized for failure to thrive at home and an altered mental state. 2. On 08/27/17 she had a period of agitation for which she was given Ativan. Following that she became unresponsive. ABGs revealed that she was severely hypercapneic and hypoxemic. Those problems were corrected and she is brighter today. 3. She feels better today. She was agitated earlier but feels calm now. She is brighter. The mind is clearer. She is generally stronger. She has been walking well. She continues to be cognitively impoverished. She denies any new problems. She denies any new neurologic symptoms. 4. On neurological examination, at this time, she does have problems with orientation, recent and remote memory, higher cognitive function and language - her cognitive function is better today and she is also brighter. Her proximal lower extremity weakness has resolved. She still has decreased position sense in the toes bilaterally, inability to perform Romberg test, globally absent deep tendon reflexes, a wide based stance and a wide based unsteady gait. 5. Laboratory data noted on my initial evaluation revealed an anemia with a hemoglobin of 9.1 G. The arterial blood gas performed on 08/26/2017, revealed that she was retaining carbon dioxide with pCO2 of 60.8 and was hypoxemic with a pO2 of 43 with pH of 7.38. The chemistry panel revealed that her sodium was elevated to 147, chloride elevated to 108, CO2 elevated to 39, glucose elevated to 108, her BNP was elevated to 672, and TSH was normal at 1.18. Her urinalysis revealed 2-4 RBCs and 0-2 WBCs per high-power field with negative leukocyte esterase. 6. Laboratory data obtained on 08/28/17 revealed a pCO2 elevated at 93, a pO2 down at 63, pH down to 7.25, HB down at 8.7 G and a low Vitamin B [address] scan of the brain without contrast performed on 08/26/2017, revealed mild atrophy and some deep white matter changes, but no acute pathology. 8. The EEG performed on 08/29/17 revealed a mild encephalopathy with a toxic/ metabolic component. 9. The patient's history, neurological examination, laboratory data, imaging and EEG are most compatible with, a significant toxic/metabolic encephalopathy. The encephalopathy is still waxing and waning and is better today. 10 Her last ABGs on 08/31/17 revealed a pH=7.30, pO2=62.1, pCO2=83.5. 11. She says that people have told her that she is getting demented. In the presence of an ongoing encephalopathy one cannot make a diagnosis of dementia. 12. She still feels very anxious - but Dr. Zuñiga is helping her with it. Recommendations 1. Continue present management. 2. Correct CO2 narcosis and hypoxia. 3. Vitamin B12 - 1000 mcg SC monthly. 4. STOP drinking alcohol. 5. Treatment of anxiety as per Dr. Zuñiga. 6. Mobilize with PT. 7. Observe closely. Samuel Dunn M.D., M.S.P.Carlos. SAMUEL DUNN Sep 01, 2017 10:55
[2017-09-01 12:00] VITALS: BP 147/73
[2017-09-01] MEDS ORDERED: Albuterol/Ipratropium 3ml neb HHN SCH (13:00)
--- NOTE | 2017-09-01 15:01 | General Progress Note ---
Assessment/Plan Problem List: (1) COPD (chronic obstructive pulmonary disease) ICD Codes: J44.9 - Chronic obstructive pulmonary disease, unspecified SNOMED: 26665729 (2) H/O tobacco use, presenting hazards to health ICD Codes: Z87.891 - Personal history of nicotine dependence SNOMED: 8556340430684 (3) Anemia ICD Codes: D64.9 - Anemia, unspecified SNOMED: 737443066 (4) Alcohol abuse ICD Codes: F10.10 - Alcohol abuse, uncomplicated SNOMED: 54844324 (5) Noncompliance ICD Codes: Z91.19 - Patient's noncompliance with other medical treatment and regimen SNOMED: 2520667 (6) Bipolar disorder ICD Codes: F31.9 - Bipolar disorder, unspecified SNOMED: 58666360 (7) Acute respiratory failure with hypoxia ICD Codes: J96.01 - Acute respiratory failure with hypoxia SNOMED: 53823374, 841290490 (8) Failure to thrive SNOMED: 78386334 (9) Altered mental state ICD Codes: R41.82 - Altered mental status, unspecified SNOMED: 176908076 (10) FTT (failure to thrive) in adult ICD Codes: R62.7 - Adult failure to thrive SNOMED: 158478266 (11) UTI (urinary tract infection) ICD Codes: N39.0 - Urinary tract infection, site not specified SNOMED: 13697875 (12) Hypomagnesemia ICD Codes: E83.42 - Hypomagnesemia SNOMED: 000600037 (13) Diastolic CHF ICD Codes: I50.30 - Unspecified diastolic (congestive) heart failure SNOMED: 88882447, 532969095 (14) Chronic hypercapnic respiratory failure ICD Codes: J96.12 - Chronic respiratory failure with hypercapnia SNOMED: 209610213 Status: progressing Assessment/Plan - Cardiology, nephrology, neurology, pulmonology, psychiatry consulted #Acute on chronic encephalopathy - CT head negative for acute pathology. Check RPR, vitamin B12, folate, TSH, UA to r/o metabolic etiology for AMS. Now improved. - EEG abnormal showing slowed brain waves - may be in the setting of CO2 retention - apprec neuro rec's #Chronic diastolic CHF - ECHO with 60% EF with diastolic dysfunction noted and mild PAH - CXR with small bilateral pleural effusion - EKG/trend trop--unremarkable - BNP 722 - SPOT DOSE LASIX - monitor I&O - no indication for RHC at this time - apprec cards rec's #UTI - UA with positive nitrites. F/u urine cx -- E.coli. - change keflex to macrobid #Acute respiratory failure may be 2/2 COPD exacerbation vs. CHF exacerbation - pulmonary toilet. titrate FiO2 down for O2 sats to be greater than 90% - duonebs ATC and prn - Advair and spiriva - continue bipap - apprec pulm rec's - CONTINUE TO ENCOURAGE COMPLIANCE #Alcohol abuse - multivitamin, folate, thiamine daily - encourage compliance and alcohol cessation #Vitamin B12 deficiency - vitamin B12 SC injections #FTT - check prealbumin/albumin - nutrition consult #Bipolar d/o - psychiatry consulted - continue to reduce mind altering meds at this time given acute AMS #Electrolyte imbalance - replete Mg - monitor BMP and Mg CLEARED PER NEURO. PENDING DISPO TO [facility] WITH BIPAP. BED AVAILABLE. CHECK ABGS TODAY GIVEN INCREASED LETHARGY. IF STABLE, POSSIBLE DC TO [facility]. DVT Prophylaxis: SCD, HSQ Code Status: Full Hospital Classification Declaration: Based on this initial evaluation, and depending on the patient's clinical course, I anticipate that this patient will require hospitalization for 2-3 days for acute on chronic CHF exacerbation and close respiratory/hemodynamic monitoring. Disposition: Once the patient is stable to leave the hospital, I anticipate the patient will likely be discharged to the following environment: [facility] SNF I spent 32 minutes on this patient's case, and 20 minutes were dedicated to counseling and/or care coordination. Discussed with patient/family, nursing staff, SW/CM, pulmonology, cardiology, neurology regarding clinical status, treatment course, and disposition planning. Time of note may not reflect time of encounter. Subjective Date patient seen: Sep 01, 2017 Time patient seen: 14:54 Allergies: Coded Allergies: CODEINE (Verified Allergy, Intermediate, Itchy, 08/26/17) Subjective - refused bipap overnight. - refusing US-guided thoracentesis - per CM, patient has a bed available at [facility] - continues to remain sob and lethargic. afebrile. no chest pian Objective Last 24 Hour Vital Signs Date Time Temp Pulse Resp B/P (MAP) Pulse Ox O2 Delivery O2 Flow Rate FiO2 09/01/17 13:56 95 20 99 Nasal Cannula 3.0 32 09/01/17 13:49 98 20 98 Nasal Cannula 3.0 32 09/01/17 12:00 97.7 81 21 147/73 97 Nasal Cannula 3.0 97.7 09/01/17 08:00 98.1 96 20 111/59 97 98.1 09/01/17 06:57 99 20 99 Nasal Cannula 3.0 32 09/01/17 06:51 99 Nasal Cannula 3.0 32 09/01/17 06:51 Nasal Cannula 3.0 32 09/01/17 06:50 96 20 96 Nasal Cannula 3.0 32 09/01/17 05:15 88 16 97 Facial 40 09/01/17 04:00 97.6 88 20 121/72 Bi-pap 97.6 09/01/17 03:37 90 09/01/17 03:36 93 19 97 Facial 40 09/01/17 01:12 102 20 97 Nasal Cannula 3.0 32 09/01/17 01:02 101 20 95 Nasal Cannula 3.0 32 09/01/17 00:07 99 08/31/17 23:54 97.9 98 18 106/60 96 Nasal Cannula 3.0 97.9 08/31/17 20:04 98.4 105 18 109/61 92 Nasal Cannula 2.0 98.4 08/31/17 19:34 107 08/31/17 19:20 103 20 96 Nasal Cannula 3.0 32 08/31/17 19:12 102 20 94 Nasal Cannula 3.0 32 08/31/17 19:12 102 20 Nasal Cannula 3.0 32 08/31/17 19:10 Nasal Cannula 3.0 32 08/31/17 19:10 94 Nasal Cannula 3.0 32 08/31/17 16:00 98.9 97 18 138/78 100 Nasal Cannula 3.0 98.9 08/31/17 16:00 97 08/31/17 15:37 91 16 94 Facial 40 Intake and Output 08/31/17 09/01/17 19:00 07:00 Intake Total 240 ml 500 ml Balance 240 ml 500 ml Intake Oral 240 ml 500 ml # Voids 3 2 # Bowel Movements 1 Laboratory Tests 09/01/17 05:40: White Blood Count 4.2L, Red Blood Count 4.89, Hemoglobin 8.4L, Hematocrit 32.4L , Mean Corpuscular Volume 66L, Mean Corpuscular Hemoglobin 17.2L, Mean Corpuscular Hemoglobin Concent 26.0L, Red Cell Distribution Width 21.2H, Platelet Count 259, Mean Platelet Volume 5.7L, Neutrophils (%) (Auto) 41.1L, Lymphocytes (%) (Auto) 35.4, Monocytes (%) (Auto) 19.9H, Eosinophils (%) (Auto) 2.1, Basophils (%) (Auto) 1.5, Sodium Level 144, Potassium Level 3.7, Chloride Level 102, Carbon Dioxide Level 40H, Anion Gap 2L, Blood Urea Nitrogen 9, Creatinine 0.5L, Estimat Glomerular Filtration Rate > 60, Glucose Level 88, Calcium Level 8.8 Height (Feet): 5 Height (Inches): 11.00 Weight (Pounds): 166 General Appearance: lethargic, mild distress EENT: PERRL/EOMI, normal ENT inspection Neck: non-tender, normal alignment, supple Cardiovascular: normal peripheral pulses, normal rate, regular rhythm Respiratory/Chest: chest wall non-tender, lungs clear, normal breath sounds Abdomen: normal bowel sounds, non tender, soft Extremities: normal range of motion, non-tender Edema: moderate edema Neurologic: cook box filler II-XII grossly normal, no motor/sensory deficits, alert, oriented x 3 Skin: normal pigmentation, warm/dry Mary Hong NP Sep 01, 2017 15:01
[2017-09-01 16:00] VITALS: BP 117/67
[2017-09-01] MEDS ORDERED: Haloperidol 5mg/ml Inj IM PRN (16:00)
[2017-09-01] MEDS ORDERED: NS 500ML ONE (17:03)
[2017-09-01] MEDS ORDERED: Tubing IV Secondary IV ONE (17:03)
[2017-09-01 19:39] VITALS: BP 116/67
[2017-09-01] MEDS ORDERED: Iron Sucrose 100 MG in NS 110 ML IV SCH (21:00)
--- NOTE | 2017-09-01 22:10 | General Progress Note ---
Assessment/Plan Assessment/Plan encephalopathy bipolar agitation alcohol dc Haldol prn thiamin folate prozac 20mg seroquel prn Subjective Date patient seen: Sep 01, 2017 Neurologic/Psychiatric: Reports: anxiety, depressed, emotional problems Allergies: Coded Allergies: CODEINE (Verified Allergy, Intermediate, Itchy, 08/26/17) Subjective c/o anxiety was given haldol has adverse reaction to benzos Objective Last 24 Hour Vital Signs Date Time Temp Pulse Resp B/P (MAP) Pulse Ox O2 Delivery O2 Flow Rate FiO2 09/01/17 19:39 98.1 100 20 116/67 94 Room Air 98.1 09/01/17 18:58 100 Nasal Cannula 3.0 32 09/01/17 18:58 Nasal Cannula 3.0 32 09/01/17 16:00 90 23 99 Facial 40 09/01/17 16:00 97.7 92 18 117/67 98 Nasal Cannula 3.0 97.7 09/01/17 13:56 95 20 99 Nasal Cannula 3.0 32 09/01/17 13:49 98 20 98 Nasal Cannula 3.0 32 09/01/17 12:00 97.7 81 21 147/73 97 Nasal Cannula 3.0 97.7 09/01/17 08:00 98.1 96 20 111/59 97 98.1 09/01/17 06:57 99 20 99 Nasal Cannula 3.0 32 09/01/17 06:51 99 Nasal Cannula 3.0 32 09/01/17 06:51 Nasal Cannula 3.0 32 09/01/17 06:50 96 20 96 Nasal Cannula 3.0 32 09/01/17 05:15 88 16 97 Facial 40 09/01/17 04:00 97.6 88 20 121/72 Bi-pap 97.6 09/01/17 03:37 90 09/01/17 03:36 93 19 97 Facial 40 09/01/17 01:12 102 20 97 Nasal Cannula 3.0 32 09/01/17 01:02 101 20 95 Nasal Cannula 3.0 32 09/01/17 00:07 99 08/31/17 23:54 97.9 98 18 106/60 96 Nasal Cannula 3.0 97.9 Intake and Output 08/31/17 09/01/17 19:00 07:00 Intake Total 240 ml 500 ml Balance 240 ml 500 ml Intake Oral 240 ml 500 ml # Voids 3 2 # Bowel Movements 1 Laboratory Tests 09/01/17 05:40: White Blood Count 4.2L, Red Blood Count 4.89, Hemoglobin 8.4L, Hematocrit 32.4L , Mean Corpuscular Volume 66L, Mean Corpuscular Hemoglobin 17.2L, Mean Corpuscular Hemoglobin Concent 26.0L, Red Cell Distribution Width 21.2H, Platelet Count 259, Mean Platelet Volume 5.7L, Neutrophils (%) (Auto) 41.1L, Lymphocytes (%) (Auto) 35.4, Monocytes (%) (Auto) 19.9H, Eosinophils (%) (Auto) 2.1, Basophils (%) (Auto) 1.5, Sodium Level 144, Potassium Level 3.7, Chloride Level 102, Carbon Dioxide Level 40H, Anion Gap 2L, Blood Urea Nitrogen 9, Creatinine 0.5L, Estimat Glomerular Filtration Rate > 60, Glucose Level 88, Calcium Level 8.8 09/01/17 15:50: Arterial Blood pH 7.380, Arterial Blood Partial Pressure CO2 72.8*H, Arterial Blood Partial Pressure O2 38.7*L, Arterial Blood HCO3 42.1H, Arterial Blood Oxygen Saturation 68.4L, Arterial Blood Base Excess 14.6, Narciso Test Positive Height (Feet): 5 Height (Inches): 11.00 Weight (Pounds): 166 Abdullahi Zuñiga M.D. Sep 01, 2017 22:10
[2017-09-02 00:17] VITALS: BP 118/73
[2017-09-02 04:23] VITALS: BP 127/68
[2017-09-02 06:13] LABS: BASOPHILS % (AUTO) 1.5 % (0.0-2.0); EOSINOPHILS % (AUTO) 1.1 % (0.0-3.0); HEMATOCRIT 35.9 % (37.0-47.0); HEMOGLOBIN 9.4 G/DL (12.0-16.0); LYMPHOCYTES % (AUTO) 24.4 % (20.0-45.0); MEAN CORPUSCULAR VOLUME 67 FL (80-99); MONOCYTES % (AUTO) 18.8 % (1.0-10.0); NEUTROPHILS % (AUTO) 54.2 % (45.0-75.0); PLATELET COUNT 284 K/UL (150-450); RED BLOOD COUNT 5.37 M/UL (4.20-5.40); RED CELL DISTRIBUTION WIDTH 21.6 % (11.6-14.8); WHITE BLOOD COUNT 3.9 K/UL (4.8-10.8)
[2017-09-02 06:26] LABS: ANION GAP 0 mmol/L (5-15); BLOOD UREA NITROGEN 8 mg/dL (7-18); CALCIUM 9.3 MG/DL (8.5-10.1); CHLORIDE 102 MMOL/L (98-107); CREATININE 0.6 MG/DL (0.55-1.30); POTASSIUM 4.4 MMOL/L (3.5-5.1); SODIUM 145 MMOL/L (136-145)
[2017-09-02] MEDS: NovoLOG Insulin Flexpen SUBQ SCH ×3 (06:30→17:34)
[2017-09-02 06:35] LABS: CARBON DIOXIDE 40 MMOL/L (21-32)
[2017-09-02 08:00] VITALS: BP 107/66
[2017-09-02] MEDS: Advair 250/50 Inhaler - 14 dose INH SCH (08:51)
--- NOTE | 2017-09-02 08:51 | Pulmonology Progress Note ---
Assessment/Plan Problems: (1) FTT (failure to thrive) in adult (2) COPD (chronic obstructive pulmonary disease) (3) CHF (congestive heart failure) (4) Anemia (5) Bipolar disorder (6) H/O tobacco use, presenting hazards to health (7) Noncompliance (8) Acute on chronic diastolic CHF (congestive heart failure) (9) Acute respiratory failure with hypoxia (10) Altered mental state (11) Hypoalbuminemia (12) Pulmonary hypertension (13) UTI (urinary tract infection) Assessment/Plan ASSESSMENT: 1. Alteration of mental status, likely multifactorial secondary to underlying bipolar disorder, alcoholism, and superimposed urinary tract infection. 2. Acute on chronic hypoxemic respiratory failure, likely secondary to underlying pulmonary hypertension, chronic obstructive pulmonary disease, and diastolic dysfunction. 3. No evidence of decompensated heart failure at this time. 4. Congestive heart failure with diastolic dysfunction. 5. Chronic obstructive pulmonary disease. 6. Chronic hypercapnic respiratory failure. 7. Severe sleep apnea with an AHI of 30. 8. Alcoholism. 9. Extensive former tobacco use. 10. Bipolar disorder. 11. Anxiety disorder. 12. Depression. 13. Iron-deficiency anemia. 14. Failure to thrive. 15. Diabetes TREATMENT PLAN: 1. BiPAP at bedtime and p.r.n. - ENCOURAGE COMPLIANCE, MONITOR GAS EXCHANGE 2. Titrate down FiO2 to keep saturations greater than 90%. 3. Advair and Spiriva (Sub for Advair and increase). 4. [id number] and p.r.n. bronchodilators. 5. Monitor volumes, PRN lasix 6. Follow up ventilation/perfusion scan to evaluate for CTEPH. 7. Monitor MS, F/U neuro and psych recs 8. Multivitamin, thiamine, and folate. 9. Monitor for signs of alcohol withdrawal. 10. Aspiration precautions. 11. Continue SSI 12. DVT prophylaxis. Heparin subcutaneous. 13. Disposition and planning. The patient will likely need to go to a SNF and then to an outpatient rehabilitation program. Subjective Allergies: Coded Allergies: CODEINE (Verified Allergy, Intermediate, Itchy, 08/26/17) Subjective AFVSS, on 2-3L O2 Continues to refuse BiPAP MS waxes and wanes No F/C, no CP, no SOB, + cough Objective Last 24 Hour Vital Signs Date Time Temp Pulse Resp B/P (MAP) Pulse Ox O2 Delivery O2 Flow Rate FiO2 6/19/18 08:00 97.0 110 18 107/66 93 Room Air 97.0 09/02/17 04:23 97.3 98 20 127/68 91 Room Air 97.3 09/02/17 00:17 96.1 95 20 118/73 99 Room Air 96.1 09/01/17 19:39 98.1 100 20 116/67 94 Room Air 98.1 09/01/17 18:58 100 Nasal Cannula 3.0 32 09/01/17 18:58 Nasal Cannula 3.0 32 09/01/17 16:00 90 23 99 Facial 40 09/01/17 16:00 97.7 92 18 117/67 98 Nasal Cannula 3.0 97.7 09/01/17 13:56 95 20 99 Nasal Cannula 3.0 32 09/01/17 13:49 98 20 98 Nasal Cannula 3.0 32 09/01/17 12:00 97.7 81 21 147/73 97 Nasal Cannula 3.0 97.7 Intake and Output 09/01/17 09/02/17 19:00 07:00 Intake Total 480 ml Balance 480 ml Intake Oral 480 ml # Voids 4 4 # Bowel Movements 1 General Appearance: no acute distress, cachetic HEENT: normocephalic, atraumatic, anicteric, mucous membranes moist Respiratory/Chest: chest wall non-tender, lungs clear, normal breath sounds, no respiratory distress, no accessory muscle use Cardiovascular: normal peripheral pulses, normal rate, regular rhythm Abdomen: normal bowel sounds, soft, non tender, no organomegaly, non distended Extremities: no cyanosis, no clubbing, no edema Laboratory Tests 09/01/17 15:50: Arterial Blood pH 7.380, Arterial Blood Partial Pressure CO2 72.8*H, Arterial Blood Partial Pressure O2 38.7*L, Arterial Blood HCO3 42.1H, Arterial Blood Oxygen Saturation 68.4L, Arterial Blood Base Excess 14.6, Narciso Test Positive 09/02/17 05:25: White Blood Count 3.9L, Red Blood Count 5.37, Hemoglobin 9.4L, Hematocrit 35.9L , Mean Corpuscular Volume 67L, Mean Corpuscular Hemoglobin 17.5L, Mean Corpuscular Hemoglobin Concent 26.2L, Red Cell Distribution Width 21.6H, Platelet Count 284, Mean Platelet Volume 5.8L, Neutrophils (%) (Auto) 54.2, Lymphocytes (%) (Auto) 24.4, Monocytes (%) (Auto) 18.8H, Eosinophils (%) (Auto) 1.1, Basophils (%) (Auto) 1.5, Sodium Level 145, Potassium Level 4.4, Chloride Level 102, Carbon Dioxide Level 40H, Anion Gap 0L, Blood Urea Nitrogen 8, Creatinine 0.6, Estimat Glomerular Filtration Rate > 60, Glucose Level 97, Calcium Level 9.3 Current Medications Medications (Trade) Dose Ordered Sig/Natividad Route PRN Reason Start Time Stop Time Status Last Admin Dose Admin Acetaminophen (Tylenol) 650 mg Q4H PRN ORAL Mild Pain/Temp > 100.5 09/01/17 12:30 09/25/17 16:29 Dextrose (Dextrose 50%) 25 ml STAT PRN IV Hypoglycemia 09/01/17 10:30 09/28/17 10:29 Dextrose (Dextrose 50%) 50 ml STAT PRN IV Hypoglycemia 09/01/17 10:30 09/28/17 10:29 Diazepam (Valium) 5 mg Q4H PRN ORAL For Anxiety 09/01/17 10:30 09/05/17 10:29 Fluoxetine HCl (PROzac) 20 mg DAILY ORAL 09/02/17 09:00 10/02/17 08:59 Folic Acid (Folate) 1 mg DAILY ORAL 09/02/17 09:00 09/27/17 08:59 Furosemide (Lasix) 20 mg DAILY IV 09/02/17 09:00 09/27/17 08:59 Heparin Sodium (Porcine) (Heparin 5000 units/ml) 5,000 units EVERY 12 HOURS SUBQ 09/01/17 21:00 09/25/17 20:59 09/01/17 20:53 Insulin Aspart (NovoLOG) BEFORE MEALS AND HS SUBQ 09/01/17 11:30 09/27/17 16:59 Iron Sucrose 100 mg/Sodium Chloride 115 ml @ 460 mls/hr BEDTIME IV 09/01/17 21:00 09/03/17 20:59 09/01/17 20:48 Lansoprazole (Prevacid) 30 mg BID ORAL 09/01/17 18:00 09/26/17 17:59 Multivitamins (Multivitamins) 1 tab DAILY ORAL 09/02/17 09:00 09/27/17 08:59 Nitrofurantoin (Macrobid) 100 mg EVERY 12 HOURS ORAL 09/01/17 21:00 09/28/17 20:59 09/01/17 20:47 Ondansetron HCl (Zofran) 4 mg Q6H PRN IVP Nausea & Vomiting 09/01/17 11:00 09/25/17 16:59 Quetiapine Fumarate (SEROquel) 25 mg EVERY 6 HOURS PRN ORAL For Anxiety 09/01/17 22:15 10/01/17 22:14 Salmeterol Xinafoate/ Fluticasone (Advair 250/50 Diskus) 1 puffs BID INH 09/01/17 18:00 09/26/17 17:59 09/01/17 19:43 Thiamine HCl (Vitamin B1) 100 mg DAILY ORAL 09/02/17 09:00 09/27/17 08:59 Tiotropium [place] (Spiriva Inhaler) 1 puff DAILY INH 09/02/17 09:00 09/27/17 08:59 09/01/17 10:47 Guevara Ayon MD Sep 02, 2017 08:51
[2017-09-02] MEDS ORDERED: Thiamine 100mg tab ORAL SCH (09:00)
[2017-09-02] MEDS: Heparin 5000 units/ml inj SUBQ SCH (09:37)
--- NOTE | 2017-09-02 11:46 | Cardiology Progress Note ---
Assessment/Plan Status: stable Assessment/Plan Hypoxemia/Dyspnea COPD Sleep Apnea Mixed pulmonary hypertension Diastolic dysfunction Bipolar disease Iron deficiency anemia Extensive alcohol and smoking use -Continue pulmonary toilet -BiPAP prn - patient refusing -No indication for RHC, PAH is multifactorial Group II/III -No indication for stress testing at this time -Echo reviewed, no significant changes to prior in June -Presentation not consistent with PE, prior work up negative -Mild IV hydration for RV function depression and hyperdyanmic systolic function but caution due to elevated filling pressures and pulmonary congestion , avoid vasodilators/nitro if possible, no indication for dobutamine - BP stable -Spot dose lasix -Physical therapy -Transfer to SNF/Rehab Subjective Cardiovascular: Reports: no symptoms Respiratory: Reports: no symptoms Gastrointestinal/Abdominal: Reports: no symptoms Genitourinary: Reports: no symptoms Subjective No acute events, mild tachycardia, vitals otherwise stable. on 2-3 liters oxygen , CXR with right effusion. Objective Last 24 Hour Vital Signs Date Time Temp Pulse Resp B/P (MAP) Pulse Ox O2 Delivery O2 Flow Rate FiO2 09/02/17 08:54 97 Nasal Cannula 3.0 32 09/02/17 08:54 Nasal Cannula 3.0 32 09/02/17 08:00 97.0 110 18 107/66 93 Room Air 97.0 09/02/17 04:23 97.3 98 20 127/68 91 Room Air 97.3 09/02/17 00:17 96.1 95 20 118/73 99 Room Air 96.1 09/01/17 19:39 98.1 100 20 116/67 94 Room Air 98.1 09/01/17 18:58 100 Nasal Cannula 3.0 32 09/01/17 18:58 Nasal Cannula 3.0 32 09/01/17 16:00 90 23 99 Facial 40 09/01/17 16:00 97.7 92 18 117/67 98 Nasal Cannula 3.0 97.7 09/01/17 13:56 95 20 99 Nasal Cannula 3.0 32 09/01/17 13:49 98 20 98 Nasal Cannula 3.0 32 09/01/17 12:00 97.7 81 21 147/73 97 Nasal Cannula 3.0 97.7 General Appearance: no apparent distress EENT: PERRL/EOMI Neck: normal alignment Rhythm: SB Cardiovascular: normal peripheral pulses Respiratory/Chest: chest wall non-tender Abdomen: normal bowel sounds Extremities: normal range of motion 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0-16.0) L Hematocrit 35.9 % (37.0-47.0) L Mean Corpuscular Volume 67 FL (80-99) L Mean Corpuscular Hemoglobin 17.5 PG (27.0-31.0) L Mean Corpuscular Hemoglobin Concent 26.2 G/DL (32.0-36.0) L Red Cell Distribution Width 21.6 % (11.6-14.8) H Platelet Count 284 K/UL (150-450) Mean Platelet Volume 5.8 FL (6.5-10.1) L Neutrophils (%) (Auto) 54.2 % (45.0-75.0) Lymphocytes (%) (Auto) 24.4 % (20.0-45.0) Monocytes (%) (Auto) 18.8 % (1.0-10.0) H Eosinophils (%) (Auto) 1.1 % (0.0-3.0) Basophils (%) (Auto) 1.5 % (0.0-2.0) Sodium Level 145 MMOL/L (136-145) Potassium Level 4.4 MMOL/L (3.5-5.1) Chloride Level 102 MMOL/L (98-107) Carbon Dioxide Level 40 MMOL/L (21-32) H Anion Gap 0 mmol/L (5-15) L Blood Urea Nitrogen 8 mg/dL (7-18) Creatinine 0.6 MG/DL (0.55-1.30) Estimat Glomerular Filtration Rate > 60 mL/min (>60) Glucose Level 97 MG/DL (74-106) Calcium Level 9.3 MG/DL (8.5-10.1) Robbin Diop M.D. Sep 02, 2017 11:46
[2017-09-02 11:53] VITALS: BP 111/67
--- NOTE | 2017-09-02 12:47 | General Progress Note ---
Assessment/Plan Problem List: (1) COPD (chronic obstructive pulmonary disease) ICD Codes: J44.9 - Chronic obstructive pulmonary disease, unspecified SNOMED: 48493147 (2) H/O tobacco use, presenting hazards to health ICD Codes: Z87.891 - Personal history of nicotine dependence SNOMED: 9463421740900 (3) Anemia ICD Codes: D64.9 - Anemia, unspecified SNOMED: 360732445 (4) Alcohol abuse ICD Codes: F10.10 - Alcohol abuse, uncomplicated SNOMED: 75534491 (5) Noncompliance ICD Codes: Z91.19 - Patient's noncompliance with other medical treatment and regimen SNOMED: 2793399 (6) Bipolar disorder ICD Codes: F31.9 - Bipolar disorder, unspecified SNOMED: 95143953 (7) Acute respiratory failure with hypoxia ICD Codes: J96.01 - Acute respiratory failure with hypoxia SNOMED: 10093542, 161406149 (8) Failure to thrive SNOMED: 96410136 (9) Altered mental state ICD Codes: R41.82 - Altered mental status, unspecified SNOMED: 066549101 (10) FTT (failure to thrive) in adult ICD Codes: R62.7 - Adult failure to thrive SNOMED: 706501328 (11) UTI (urinary tract infection) ICD Codes: N39.0 - Urinary tract infection, site not specified SNOMED: 67512391 (12) Hypomagnesemia ICD Codes: E83.42 - Hypomagnesemia SNOMED: 772429317 (13) Diastolic CHF ICD Codes: I50.30 - Unspecified diastolic (congestive) heart failure SNOMED: 84701215, 375193424 (14) Chronic hypercapnic respiratory failure ICD Codes: J96.12 - Chronic respiratory failure with hypercapnia SNOMED: 892684039 Status: stable Assessment/Plan - Cardiology, nephrology, neurology, pulmonology, psychiatry consulted #Acute on chronic encephalopathy - CT head negative for acute pathology. Check RPR, vitamin B12, folate, TSH, UA to r/o metabolic etiology for AMS. Now improved. - EEG abnormal showing slowed brain waves - may be in the setting of CO2 retention - apprec neuro rec's #Chronic diastolic CHF - ECHO with 60% EF with diastolic dysfunction noted and mild PAH - CXR with small bilateral pleural effusion - EKG/trend trop--unremarkable - BNP 722 - SPOT DOSE LASIX - monitor I&O - no indication for RHC at this time - apprec cards rec's #UTI - UA with positive nitrites. F/u urine cx -- E.coli. - change keflex to macrobid #Acute respiratory failure may be 2/2 COPD exacerbation vs. CHF exacerbation - pulmonary toilet. titrate FiO2 down for O2 sats to be greater than 90% - duonebs ATC and prn - Advair and spiriva - continue bipap - apprec pulm rec's - CONTINUE TO ENCOURAGE COMPLIANCE #Alcohol abuse - multivitamin, folate, thiamine daily - encourage compliance and alcohol cessation #Vitamin B12 deficiency - vitamin B12 SC injections #FTT - check prealbumin/albumin - nutrition consult #Bipolar d/o - psychiatry consulted - continue to reduce mind altering meds at this time given acute AMS #Electrolyte imbalance - replete Mg - monitor BMP and Mg CLEARED PER NEURO AND PULMONOLOGY FOR DISCHARGE. PATIENT IS CLEARED FOR DISCHARGE TO SNF. DVT Prophylaxis: SCD, HSQ Code Status: Full Hospital Classification Declaration: Based on this initial evaluation, and depending on the patient's clinical course, I anticipate that this patient will require hospitalization for 2-3 days for acute on chronic CHF exacerbation and close respiratory/hemodynamic monitoring. Disposition: Once the patient is stable to leave the hospital, I anticipate the patient will likely be discharged to the following environment: SNF I spent 32 minutes on this patient's case, and 20 minutes were dedicated to counseling and/or care coordination. Discussed with patient/family, nursing staff, SW/CM, pulmonology, cardiology, neurology regarding clinical status, treatment course, and disposition planning. Time of note may not reflect time of encounter. Subjective Date patient seen: Sep 02, 2017 Time patient seen: 12:44 Allergies: Coded Allergies: CODEINE (Verified Allergy, Intermediate, Itchy, 08/26/17) Subjective - refused bipap overnight. - feels better today. less sob. no cp - family refusing [facility], requesting another facility Objective Last 24 Hour Vital Signs Date Time Temp Pulse Resp B/P (MAP) Pulse Ox O2 Delivery O2 Flow Rate FiO2 09/02/17 11:53 98.0 90 18 111/67 96 98.0 09/02/17 08:54 97 Nasal Cannula 3.0 32 09/02/17 08:54 Nasal Cannula 3.0 32 09/02/17 08:00 97.0 110 18 107/66 93 Room Air 97.0 09/02/17 04:23 97.3 98 20 127/68 91 Room Air 97.3 09/02/17 00:17 96.1 95 20 118/73 99 Room Air 96.1 09/01/17 19:39 98.1 100 20 116/67 94 Room Air 98.1 09/01/17 18:58 100 Nasal Cannula 3.0 32 09/01/17 18:58 Nasal Cannula 3.0 32 09/01/17 16:00 90 23 99 Facial 40 09/01/17 16:00 97.7 92 18 117/67 98 Nasal Cannula 3.0 97.7 09/01/17 13:56 95 20 99 Nasal Cannula 3.0 32 09/01/17 13:49 98 20 98 Nasal Cannula 3.0 32 Intake and Output 09/01/17 09/02/17 19:00 07:00 Intake Total 480 ml Balance 480 ml Intake Oral 480 ml # Voids 4 4 # Bowel Movements 1 Laboratory Tests 09/01/17 15:50: Arterial Blood pH 7.380, Arterial Blood Partial Pressure CO2 72.8*H, Arterial Blood Partial Pressure O2 38.7*L, Arterial Blood HCO3 42.1H, Arterial Blood Oxygen Saturation 68.4L, Arterial Blood Base Excess 14.6, Narciso Test Positive 09/02/17 05:25: White Blood Count 3.9L, Red Blood Count 5.37, Hemoglobin 9.4L, Hematocrit 35.9L , Mean Corpuscular Volume 67L, Mean Corpuscular Hemoglobin 17.5L, Mean Corpuscular Hemoglobin Concent 26.2L, Red Cell Distribution Width 21.6H, Platelet Count 284, Mean Platelet Volume 5.8L, Neutrophils (%) (Auto) 54.2, Lymphocytes (%) (Auto) 24.4, Monocytes (%) (Auto) 18.8H, Eosinophils (%) (Auto) 1.1, Basophils (%) (Auto) 1.5, Sodium Level 145, Potassium Level 4.4, Chloride Level 102, Carbon Dioxide Level 40H, Anion Gap 0L, Blood Urea Nitrogen 8, Creatinine 0.6, Estimat Glomerular Filtration Rate > 60, Glucose Level 97, Calcium Level 9.3 Height (Feet): 5 Height (Inches): 11.00 Weight (Pounds): 162 General Appearance: alert, lethargic, thin EENT: PERRL/EOMI, normal ENT inspection Neck: non-tender, normal alignment, supple Cardiovascular: normal peripheral pulses, normal rate, regular rhythm Respiratory/Chest: chest wall non-tender, lungs clear, normal breath sounds Abdomen: normal bowel sounds, non tender, soft Extremities: normal range of motion, non-tender Edema: moderate edema 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
[2017-09-02] MEDS ORDERED: ADVAIR 250/501 PUFFS INH (12:51)
[2017-09-02] MEDS ORDERED: THIAMINE HCL100 MG ORAL (12:51)
[2017-09-02] MEDS ORDERED: FUROSEMIDE20 M1 ORAL (12:51)
[2017-09-02] MEDS ORDERED: FOLIC ACID1 MG ORAL (12:51)
[2017-09-02] MEDS ORDERED: MULTIVITAMINS1 EAC2 ORAL (12:51)
[2017-09-02] MEDS ORDERED: ACETAMINOPHEN325 M1 ORAL (12:51)
[2017-09-02] MEDS ORDERED: FLUOXETINE HCL20 MG ORAL (12:51)
[2017-09-02] MEDS ORDERED: SPIRIVA INHALE1 PUF1 INH (12:51)
--- NOTE | 2017-09-02 13:38 | Neurology Progress Note ---
Interim History Interim History Interim History Ms. Reina feels better generally. She is subdued now but was given "medicine for anxiety" recently. She feels calm. Her cerebration is slow. The mind is clear. She is generally stronger. She has not walked today. She continues to be cognitively impoverished. She denies any new problems. She denies any new neurologic symptoms. Review of Systems Neuro Review of Systems Benign. Objective Physical Exam Last Vital Signs Date Time Temp Pulse Resp B/P (MAP) Pulse Ox O2 Delivery O2 Flow Rate FiO2 09/02/17 11:53 98.0 90 18 111/67 96 98.0 09/02/17 08:54 Nasal Cannula 3.0 32 Laboratory Tests Test 09/01/17 15:50 09/02/17 05:25 Arterial Blood pH 7.380 (7.350-7.450) Arterial Blood Partial Pressure CO2 72.8 mmHg (35.0-45.0) *H Arterial Blood Partial Pressure O2 38.7 mmHg (75.0-100.0) Arterial Blood HCO3 42.1 mmol/L (22.0-26.0) H Arterial Blood Oxygen Saturation 68.4 % (92.0-98.0) L Arterial Blood Base Excess 14.6 Narciso Test Positive White Blood Count 3.9 K/UL (4.8-10.8) L Red Blood Count 5.37 M/UL (4.20-5.40) Hemoglobin 9.4 G/DL (12.0-16.0) L Hematocrit 35.9 % (37.0-47.0) L Mean Corpuscular Volume 67 FL (80-99) L Mean Corpuscular Hemoglobin 17.5 PG (27.0-31.0) L Mean Corpuscular Hemoglobin Concent 26.2 G/DL (32.0-36.0) L Red Cell Distribution Width 21.6 % (11.6-14.8) H Platelet Count 284 K/UL (150-450) Mean Platelet Volume 5.8 FL (6.5-10.1) L Neutrophils (%) (Auto) 54.2 % (45.0-75.0) Lymphocytes (%) (Auto) 24.4 % (20.0-45.0) Monocytes (%) (Auto) 18.8 % (1.0-10.0) H Eosinophils (%) (Auto) 1.1 % (0.0-3.0) Basophils (%) (Auto) 1.5 % (0.0-2.0) Sodium Level 145 MMOL/L (136-145) Potassium Level 4.4 MMOL/L (3.5-5.1) Chloride Level 102 MMOL/L (98-107) Carbon Dioxide Level 40 MMOL/L (21-32) H Anion Gap 0 mmol/L (5-15) L Blood Urea Nitrogen 8 mg/dL (7-18) Creatinine 0.6 MG/DL (0.55-1.30) Estimat Glomerular Filtration Rate > 60 mL/min (>60) Glucose Level 97 MG/DL (74-106) Calcium Level 9.3 MG/DL (8.5-10.1) Neurologic Exam Objective PHYSICAL EXAMINATION: GENERAL: She is a well-developed, relatively well-nourished black lady, lying in bed, in no acute distress. HEAD: Normocephalic and atraumatic. EENT: Examination benign. NECK: No neck rigidity was observed. NEUROLOGICAL EXAMINATION: MENTAL STATUS EXAMINATION: She was awake but not alert. Her cerebration was slow. She was oriented to [facility], and [facility] and September 02, 2017. She was able to recall 3/3 words immediately but could only remember 2/3 in 1 and 3 minutes. She was able to remember presidents Trump through [facility] only. Her mathematical skills were impaired. Her visuospatial function was relatively good. SPEECH: She had no dysarthria. LANGUAGE: She had an anomia for low frequency words. CRANIAL NERVE EXAMINATION: II: The visual melara were intact on confrontation. III, IV & : The external ocular movements were full and the pupils were 3 mm in diameter and reactive sluggishly to light. V: She had normal facial sensations and the temporales, masseters and pterygoids functioned normally. VII: She had normal facial expressions and no facial asymmetry. VIII: She was able to hear well and had no nystagmus. IX: The palate moved symmetrically on phonation. X: She had no hoarseness of voice. XI: The sternocleidomastoids and trapezii functioned normally. XII: The tongue was in the midline. MOTOR SYSTEM: The tone was normal in all four extremities. Examination of muscle mass revealed no focal wasting. Examination of power revealed G 5/5 power. SENSORY EXAMINATION: She had intact sensations to pin prick, light touch and graphesthesia. Position sense was diminished in the toes bilaterally. REFLEXES: 0 at the biceps, triceps, brachioradialis, knees, and ankles. The plantar responses were mute bilaterally. COORDINATION: She performed well on [id number] and winh-by-qong testing. STANCE & GAIT: Were deferred. ABNORMAL MOVEMENTS: Asterixis: G 0/4 Impression/Recommendations Diagnostic Impression 1. Ms. Latoya Reina is a 62-year-old, right-handed, black lady, who does have past history of multiple medical problems including bipolar affective disorder, chronic obstructive pulmonary disease, obstructive sleep apnea, mixed pulmonary hypertension, diastolic dysfunction, iron deficiency anemia, alcohol abuse, and tobacco abuse, who was hospitalized for failure to thrive at home and an altered mental state. 2. On 08/27/17 she had a period of agitation for which she was given Ativan. Following that she became unresponsive. ABGs revealed that she was severely hypercapneic and hypoxemic. Those problems were corrected and she is brighter today. 3. She feels better generally. She is subdued now but was given "medicine for anxiety" recently. She feels calm. Her cerebration is slow. The mind is clear. She is generally stronger. She has not walked today. She continues to be cognitively impoverished. She denies any new problems. She denies any new neurologic symptoms. 4. On neurological examination, at this time, she does have problems with recent and remote memory, higher cognitive function and language - her cognitive function is stable. Her proximal lower extremity weakness has resolved. She still has decreased position sense in the toes bilaterally, inability to perform Romberg test, globally absent deep tendon reflexes, a wide based stance and a wide based unsteady gait. 5. Laboratory data noted on my initial evaluation revealed an anemia with a hemoglobin of 9.1 G. The arterial blood gas performed on 08/26/2017, revealed that she was retaining carbon dioxide with pCO2 of 60.8 and was hypoxemic with a pO2 of 43 with pH of 7.38. The chemistry panel revealed that her sodium was elevated to 147, chloride elevated to 108, CO2 elevated to 39, glucose elevated to 108, her BNP was elevated to 672, and TSH was normal at 1.18. Her urinalysis revealed 2-4 RBCs and 0-2 WBCs per high-power field with negative leukocyte esterase. 6. Laboratory data obtained on 08/28/17 revealed a pCO2 elevated at 93, a pO2 down at 63, pH down to 7.25, HB down at 8.7 G and a low Vitamin B 12 at [address] scan of the brain without contrast performed on 08/26/2017, revealed mild atrophy and some deep white matter changes, but no acute pathology. 8. The EEG performed on 08/29/17 revealed a mild encephalopathy with a toxic/ metabolic component. 9. The patient's history, neurological examination, laboratory data, imaging and EEG are most compatible with, a significant toxic/metabolic encephalopathy. The encephalopathy is still waxing and waning and is better today. 10 Her last ABGs on 08/31/17 revealed a pH=7.30, pO2=62.1, pCO2=83.5. 11. She says that people have told her that she is getting demented. In the presence of an ongoing encephalopathy one cannot make a diagnosis of dementia. 12. She is less anxious - but mildly sedated. Recommendations 1. Continue present management. 2. Correct CO2 narcosis and hypoxia. 3. Vitamin B12 - 1000 mcg SC monthly. 4. STOP drinking alcohol. 5. Treatment of anxiety as per Dr. Zuñiga. 6. Mobilize with PT. 7. Follow up in office in 6-8 weeks. I will stop following her as she is neurologically stable. Please do let me know if any new neurologic concerns arise. Samuel Tracy M.D., M.S.P.SAMUEL MARAVILLA Sep 02, 2017 13:38
[2017-09-02 15:49] VITALS: BP 102/63
--- NOTE | 2017-09-03 10:22 | Discharge Summary ---
Discharge Summary Hospital Course Date of Admission Aug 26, 2017 at 12:22 Date of Discharge Sep 02, 2017 at 19:40 Admitting Diagnosis HPI Latoya Reina is a 62 year old female who was admitted on Aug 26, 2017 at 12 :22 for Congestive Heart Failure,Failure To Thrive Hospital Course dc summary #[id number] Discharge Medications New Medications: Furosemide* (Lasix*) 20 Mg Tablet 20 MG ORAL DAILY for 30 Days, #30 TAB Acetaminophen* (Acetaminophen 325MG Tablet*) 325 Mg Tablet 650 MG ORAL Q4H PRN for 30 Days, #30 TAB Fluoxetine Hcl* (Fluoxetine Hcl*) 20 Mg Capsule 20 MG ORAL DAILY for 30 Days, #30 CAP Fluticasone/Salmeterol (Advair 250-50 Diskus) 1 Each Blst.w.dev 1 PUFFS INH BID for 30 Days, #30 EA Folic Acid* (Folic Acid*) 1 Mg Tablet 1 MG ORAL DAILY for 30 Days, #30 TAB Multivitamins* (Multivitamins*) 1 Each Tablet 1 TAB ORAL DAILY for 30 Days, #30 TAB Thiamine Hcl (Vitamin B1*) 100 Mg Tablet 100 MG ORAL DAILY for 30 Days, #30 TAB Tiotropium [place] (Spiriva) 18 Mcg Cap.w.dev 1 PUFF INH DAILY for 30 Days, #30 EA Continued Medications: Bupropion HCl (Bupropion Xl) 300 Mg Tab.er.24h 300 MG PO DAILY (This prescription has been renewed) Discontinued Medications: Fluticasone/Salmeterol (Advair 250-50 Diskus) 1 Each Blst.w.dev 1 PUFF PO BID for asthma Discharge Condition Upon Discharge: stable Discharge Disposition Patient was discharged to SNF/Subacute Facility(03) Discharge Instructions Discharge Instructions Special Instructions I have been assigned to complete a D/C Summary on this account. I was not involved in the patient management Anila Sparks NP Sep 03, 2017 10:22
--- NOTE | 2017-09-03 15:45 | Consultation ---
DATE OF CONSULTATION: 09/02/2017 HEMATOLOGY/ONCOLOGY CONSULTATION CONSULTING PHYSICIAN: José Miguel Carter M.D. REQUESTING PHYSICIANS: 1. Pauline Saldana M.D. 2. IDENTIFYING DATA: Dear Dr. Saldana and DrMinesh , The patient is a pleasant 62-year-old female who was admitted several days ago with past medical history, which is significant for alcohol abuse, right-sided diastolic heart failure, anemia, , obstructive sleep apnea, presents heart failure, lower extremity edema, drinking more recently, noncompliance with medications. Echo showed LV function, which is normal. PAH as well. Hematology Service consulted given ongoing history of drinking. The patient denies any other changes, noted to have leukopenia as well as anemia and failure to thrive, microcytosis was noted as well. Laboratories are reviewed. Ferritin reviewed, was noted to be 9. Therefore, the patient is severely iron-deficient. PAST MEDICAL HISTORY: Iron-deficiency anemia in addition to failure to thrive, history of alcohol abuse, pulmonary hypertension, , and hypoalbuminemia. PAST SURGICAL HISTORY: None noted. ALLERGIES: Codeine. FAMILY HISTORY: Noncontributory. REVIEW OF SYSTEMS: CONSTITUTIONAL: No fever, chills, or night sweats. SKIN: No rashes, bumps, or itching. HEENT: No headache, hearing or vision changes. BREASTS: No lumps, pain, or discharge. PULMONARY: No cough, sputum, or shortness of breath. GASTROINTESTINAL: No nausea, vomiting, or diarrhea. GENITOURINARY: No dysuria, frequency, or urgency. MUSCULOSKELETAL: No joint swelling, muscle pain, or trauma. PHYSICAL EXAMINATION: VITAL SIGNS: Reviewed. GENERAL: No distress. PULMONARY: Decreased breath sounds. CARDIOVASCULAR: Regular rate. No S3 or S4. ABDOMEN: Soft, nontender, and nondistended. EXTREMITIES: 1+ edema. LABORATORY AND DIAGNOSTIC DATA: WBC 3.9, hemoglobin , hematocrit 36, and platelet count 284,000. Imaging, CAT scan of the chest, abdomen, and pelvis completed shows borderline cardiomegaly, otherwise reveals bilateral pleural effusions secondary to interstitial septal nonspecific opacities, minimal pericardial versus fluid thickening, likely recommend repeat CAT scan. ASSESSMENT AND RECOMMENDATIONS: 1. Leukopenia likely secondary to alcohol abuse, myelosuppression, splenomegaly as well. Closely monitor. 2. Anemia due to iron deficiency. Continue the patient on iron supplementations as an outpatient. 3. Microcytosis noted due to underlying iron deficiency. Closely monitor. Again recommend iron supplementation as an outpatient for a total of three months. 4. Alcohol abuse. Recommend the patient cease alcohol use. 5. Anemia due to alcohol, myelosuppression. 6. Failure to thrive likely due to ongoing alcohol use. 7. UTI. 8. Acute respiratory failure 9. Vitamin B12 deficiency. Continue B12 shots once a month as an outpatient. I appreciate the consultation. José Miguel Carter M.D. DR: RAFA JOB#: [id number] CC:
--- NOTE | 2017-09-03 22:45 | Discharge Summary 2 SIG ---
DATE OF ADMISSION: 08/26/2017 DATE OF DISCHARGE: 09/02/2017 REASON FOR ADMISSION: 62-year-old female with past medical history significant for diastolic congestive heart failure, anemia, bipolar disorder, obstructive sleep apnea, alcoholism, history of smoking, and COPD, was sent from the clinic for evaluation for concern for possible decompensated heart failure and bilateral lower extremity edema. The patient recently was drinking alcohol and was noncompliant with medication regimen. The patient by herself denied shortness of breath, chest pain, nausea, vomiting, abdominal pain, diarrhea, or constipation. She admitted to drinking 2 to 3 drinks within the last several days. She denied recent tobacco abuse. She denied use of illicit street drugs. Initial troponin was negative. ProBNP 722. Chest x-ray showed mild bilateral pleural effusion and findings consistent with congestive heart failure. The patient was afebrile, mild tachycardia up to 110. ABG revealed hypercapnia with pCO2 of 60, stable pH and pO2 of 73.8 on room air . The patient required supplemental oxygen to keep pulse oximetry above 90%. Laboratory workup revealed no leukocytosis, anemia with hemoglobin 9.6, hematocrit 37.0, and MCV of 67. Coagulation profile within normal limits. Stable electrolytes. Echocardiogram showed preserved ejection fraction of 70% to 75%, normal left ventricular chamber size heart, normal wall motion except for flattening of ventricle septal suggestive of RV pressure overload. Right ventricular systolic pressure was 49, the velocity profile was incomplete, but pattern was consistent with pulmonary hypertension. CT of the head revealed mild age-related volume loss but was negative for acute intracranial bleeding or mass effect. Urine toxicology screen was negative. The patient admitted with diagnoses of acute on chronic diastolic congestive heart failure, acute respiratory failure with hypoxia, COPD, microcytic anemia, alcohol abuse, noncompliance, altered mental status, failure to thrive, bipolar disorder, and history of tobacco use. HOSPITAL COURSE: The patient admitted to telemetry floor. The patient started on diuresis with close monitoring of cardiorenal parameters and volumes. Cardiology closely followed the patient. According to geographical historian, no indication for right heart catheterization. Pulmonary artery hypertension was multifactorial, group 2-3. No indication for stress test at this time. Echocardiogram was personally reviewed by geographical historian, no significant change to prior ECHO done in June. Soaking Tank Worker recommended mild IV hydration due to the RV function depression and hyperdynamic systolic function, but with caution given elevated filling pressure and pulmonary congestion, and close monitoring of volumes. Soaking Tank Worker also recommended to avoid vasodilator/nitrites if possible. No indication for dobutamine. Blood pressure was stable. After diuresis, he recommended spot dose of Lasix as needed. Venous duplex of bilateral lower extremity was negative. No evidence of decompensated heart failure. Customer Service Engineer closely followed. The patient was placed on supplemental oxygen and at some point even required BiPAP to keep pulse oximetry above 90%. The patient with severe obstructive sleep apnea with AHI of 30. He recommended to use BiPAP at night and as needed and encouraged compliance with the BiPAP at night. ABG were closely monitored. FiO2 was titrated to keep pulse oximetry above 92%. Inhalers continued for maintenance treatment for COPD: Advair, and Spiriva. The patient was on around the clock and as needed handheld nebulizing treatment with bronchodilator. He recommended to follow up with the V/Q scan to evaluate for CTEPH (chronic thromboembolic pulmonary hypertension). Aspiration precautions were maintained. DVT prophylaxis provided. Acute hypoxemic respiratory failure was multifactorial , likely secondary to underlying pulmonary hypertension, chronic obstructive pulmonary disease, and diastolic dysfunction. The patient was counseled to continue abstinence from smoking. Neurologist closely followed the patient. The patient undergone EEG, which revealed encephalopathy with definite toxic metabolic component as evidenced by the triphasic waveforms. According to neurologist, the patient had significant toxic metabolic encephalopathy, which was waxing and waning. Encephalopathy was likely multifactorial, secondary to ETOH, urinary tract infection, and bipolar disorder. Neurologist recommended to continue present treatment. CO2 narcosis and hypoxia were corrected. While working on treatable courses, noted deficiency in vitamin B12. The patient was given B12 injection and will be continued with replacement 1000 mcg subcutaneous monthly. The patient strongly advised on alcohol cessation. The patient was mobilized with physical therapists, was able to ambulate safely. Fall precautions were maintained. Pre-albumin was 8. The patient had a high risk for malnutrition and therefore nutritional consult was requested . Nutritional supplements were implemented and in plan of care. Top Former closely followed. Anemia workup showed finding consistent with anemia of iron deficiency. The patient was on the IV iron. Hemoglobin and hematocrit were closely monitored, remained on the baseline, no need for transfusion, goal to keep hemoglobin above 7. Renal parameters and electrolytes were closely monitored. Nephrotoxics were avoided. Electrolytes were replaced as needed, specifically magnesium and potassium. GI prophylaxis provided. The patient noted to have a proteinuria, total protein in 24 hours urine collection - 81.8 g. Psychiatrist closely followed the patient. Psychiatrist diagnosed the patient with encephalopathy, bipolar disorder, agitation, and alcohol dependency. The patient started on thiamine and folate. The patient was closely watched for alcohol withdrawal symptoms, no seizures, no evidence of alcohol withdrawal. Anti-anxiolytics were on board as needed. The patient was started on Prozac and Seroquel as needed. Urinalysis was consistent with UTI. Urine culture revealed E. coli. The patient initially was on empiric antibiotic, which upon discharge changed to oral Macrobid to complete the course of treatment. The patient slowly was improving. The patient required placement to senior care facility for rehabilitation. The patient was stable for discharge to senior care facility. FINAL DIAGNOSES: 1. Congestive heart failure with diastolic dysfunction. 2. Acute on chronic hypoxemic respiratory failure 3. Mixed pulmonary hypertension. 4. COPD. 5. Chronic hypercapnic respiratory failure. 6. Severe sleep apnea with AHI of 30. 7. Toxic metabolic encephalopathy. 8. Alcohol abuse. 9. Noncompliance. 10.Iron-deficiency anemia. 11. Bipolar disorder. 12. History of tobacco use. 13. Urinary tract infection with Escherichia coli. 14. Vitamin B12 deficiency. 16. Proteinuria. 17. Hypoalbuminemia. 18. Failure to thrive. DISCHARGE MEDICATIONS: See medication reconciliation list. DISCHARGE INSTRUCTIONS: The patient discharged to senior care facility to continue rehabilitation and follow up with medical doctor at the facility. Pauline Saldana M.D. I have been assigned to dictate discharge summary on this account and I was not involved in the patient's management. Anila Wintersjason NJanelle DR: ROYER JOB#: [id number] CC: NASIR
== END 2017-09-02 19:40 | DRG 291 ==
LOC: 2E 12:22 → 2W 20:42 → 2E 08-29 16:05 → 4W 09-01 10:04
DX: I50.33 Acute on chronic diastolic (congestive) heart failure (principal); J96.21 Acute and chronic respiratory failure with hypoxia; G92 Toxic encephalopathy; N39.0 Urinary tract infection, site not specified; E87.0 Hyperosmolality and hypernatremia; J44.9 Chronic obstructive pulmonary disease, unspecified; Z87.891 Personal history of nicotine dependence; D64.9 Anemia, unspecified; F31.9 Bipolar disorder, unspecified; Z91.19 Patient's noncompliance with other medical treatment and regimen; R62.7 Adult failure to thrive; G47.33 Obstructive sleep apnea (adult) (pediatric); D50.9 Iron deficiency anemia, unspecified; B96.20 Unspecified Escherichia coli [E. coli] as the cause of diseases classified elsewhere; I27.20 Pulmonary hypertension, unspecified; E53.8 Deficiency of other specified B group vitamins; E88.09 Other disorders of plasma-protein metabolism, not elsewhere classified; Z88.6 Allergy status to analgesic agent; F10.20 Alcohol dependence, uncomplicated; R45.1 Restlessness and agitation
CPT/HCPCS: 36415; 36600; 70450; 71045; 71250; 74176; 80048; 80053; 80061; 80307; 81001; 81050; 82306; 82550; 82607; 82728; 82746; 82803; 82962; 82977; 83036; 83540; 83550; 83735; 83880; 84100; 84134; 84156; 84443; 84484; 84550; 85007; 85025; 85610; 85651; 85730; 86140; 86592; 87086; 87181; 93005; 93306; 93970; 94640; 94660; 94664; 94760; 95819; J1815; J7620